=== PATIENT | male | born 1940 | race Caucasian/White ===

== ENCOUNTER 2019-02-06 11:16 | Outpatient (CLI) | payer MEDICARE, SELFPAY ==
[2019-02-06 13:13] LABS: Anion Gap 13.3 mmol/L (3-11); BUN 21 mg/dL (7-18); CO2 23.7 mmol/L (21.0-32.0); Calcium 8.7 mg/dL (8.5-10.1); Chloride 104 mmol/L (98-107); Estimated GFR 53.67 (mL/min/1.73m2); Glucose 103 mg/dL (70-100); Potassium 4.2 mmol/L (3.5-5.1); Sodium 141 mmol/L (136-145)
== END 2019-02-06 11:36 ==
PROVIDERS: PCP Family Medicine; Visit Provider Family Medicine
DX: N28.9 Disorder of kidney and ureter, unspecified (principal)
CPT/HCPCS: 36415; 80048

== ENCOUNTER 2019-10-13 14:49 | Emergency (ER) | payer MEDICARE, SELFPAY ==
[2019-10-13] VITALS (51 sets, daily range): BP systolic 114–177; BP diastolic 62–98; PULSE 62–88; RESP 12–34; TEMP 36.5–36.8; O2SAT 93–98
--- NOTE | 2019-10-13 15:15 | DI.CT_ITS ---
EXAM: CT THORAX CTA CLINICAL HISTORY: chest pain radiating to back TECHNIQUE: Imaging Protocol: Axial computed tomography images with coronal and sagittal reformatted images were created and reviewed CONTRAST MATERIAL: Intravenous: Omnipaque 350 Contrast volume:100 cc COMPARISON: No exams were available for comparison FINDINGS: Thyroid: Unremarkable as visualized. Tracheobronchial tree: Patent where visualized. Mediastinum and [place]: No dominant adenopathy or fluid collection. Pulmonary parenchyma: No consolidation or dominant measurable mass. No architectural distortion. Ther e are a couple of small pulmonary nodules bilaterally, none greater than 4 millimeters in diameter. Pleura: No effusion or pneumothorax. Heart: The heart is not dilated. No coronary artery calcifications are seen. Aorta: Thoracic aorta non-dilated. Pulmonary arteries: No evidence pulmonary embolic disease. Upper abdomen: Unremarkable. Lymph nodes: Within normal limits. Bones: Normal. Tubes, Catheters, and Lines: None. IMPRESSION: Normal CT of the thorax.No evidence of pulmonary embolic disease. RADIATION DOSE DELIVERED: 480.01mGy.cm Total DLP DATA REPOSITORY: All CT scans at this facility are submitted to the National Radiology Data Registry (NRDR) Dose Index Registry (DIR) with the [employer] ([employer]). RADIATION OPTIMIZATION: All CT scans at this facility use at least one of these dose optimization te chniques: automated exposure control; mA and/or kV adjustment per patient size (includes targeted exa ms where dose is matched to clinical indication); or iterative reconstruction.
--- NOTE | 2019-10-13 15:21 | ED.GENADUL_ITS ---
Discharge Plan Disposition Patient Disposition: [facility] Condition: Critical Discharge Details Chief Complaint: Chest Pain Clinical Impression: Non-ST elevation MN (NSTEMI) Primary Care Provider: Ceasar Pratt ED Provider: Rajesh Chambers Home Meds and New Rx's Prescriptions: No Action lorazepam 0.5 mg tablet 0.5 mg PO QHS PRN (Reason: sleep) Qty: 30 RF: 0 desmopressin 0.1 mg tablet 0.2 mg PO QAM Qty: 180 RF: 4 Medical Decision Making 1526 --79-year-old male with history of hyperlipidemia, diabetes insipidus, here with crushing substernal chest pressure intermittent since last night. Patient does not currently have pain. Pain did radiate to his back and bilateral shoulders. Concern for ACS versus aortic dissection versus other. Screening ECG was reviewed and interpreted by me: Sinus rhythm 69 bpm, normal axis, subtle DC depression is noted inferior leads lead III and aVF. Plan to obtain CTA of the chest. --Troponin significantly elevated. CTA pending. Patient reassessed and notes that he had recurrent chest pain that was brief radiating to his neck and now resolved again. --CT of the chest was reviewed by me and no obvious dissection. Plan to start heparin bolus and infusion. Will give Plavix 600 mg and aspirin 325 mg. 17:10 --called [facility] transfer center to request transfer and unfortunately they are at capacity unable to accept patient tonight. I called [facility] transfer center to request transfer, ECG was sent for review, awaiting callback from [employer] consultant. --Repeat ECG was reviewed and interpreted by me: Sinus rhythm 70 bpm, low voltage noted in limb leads, no significant change from prior ECG. --CT chest was interpreted by radiology: IMPRESSION: No acute finding 17:23 --I spoke with Dr. Cheng at [facility] who will accept the patient in transfer. He recommends starting nitroglycerin infusion and beta-gail. Awaiting bed placement. HPI General Mode of arrival: ambulatory . Date/Time Provider Initiated Documentation: 10/13/19 15:06 . Limitations to Documentation: no limitations . Information obtained by: patient . 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 Patient notes crushing pressure in his chest that started last night while at rest. Pain was worse lying down. Pain improved after hours but returned this morning. Pain localized to substernal and did have some radiation to his back and bilateral shoulders. He had no associated shortness of breath. He does have some chronic mild unchanged leg swelling. No associated calf pain. No abdominal pain. Related Data Home Medications Medication Instructions Recorded Confirmed desmopressin 0.1 mg tablet 0.2 mg PO QAM #180 tab 03/10/19 10/13/19 lorazepam 0.5 mg tablet 0.5 mg PO QHS PRN #30 tab 09/05/19 10/13/19 Previous Rx's Medication Instructions Recorded desmopressin 0.1 mg tablet 0.2 mg PO QAM #180 tab 03/10/19 lorazepam 0.5 mg tablet 0.5 mg PO QHS PRN #30 tab 09/05/19 Allergies Allergy/AdvReac Type Severity Reaction Status Date / Time bee venom protein (honey bee) AdvReac Severe swell up Unverified 10/13/19 15:01 like a baloon General Stated Complaint: Chest Pain TERRIE: 2 Review of Systems All systems reviewed & are unremarkable except as noted in HPI and below Constitutional Constitutional: Denies fever(s) Cardiovascular Cardiovascular: Reports as per HPI Gastrointestinal Gastrointestinal: Denies abdominal pain PFSH Social History Smoking/Tobacco Use Status: Former Tobacco Use Alcohol Intake: current Alcohol Intake frequency: a few times a week Drug use: Occasionally Substance use type: marijuana Do you feel safe at home: Yes Do you feel safe in your relationship?: Yes Exam Const General: cooperative and no acute distress [facility] Mouth: moist mucous membranes Eyes Conjunctivae: normal conjunctivae Sclera: normal sclerae Neck Neck: trachea midline and supple Resp Auscultation: clear to auscultation bilaterally, no rales, no rhonchi and no wheezes Cardio Jugular venous pressure: no JVD Rate: regular rate and not tachycardic Rhythm: regular rhythm Heart Sounds: murmur systolic II/ GI Palpation: soft, not firm, no guarding, no masses, not rigid and nontender Skin General skin exam: no rashes or lesions noted Neuro General: patient alert, patient awake, patient oriented x3 and tone normal Extrem General: no calf tenderness bilaterally and no edema Psych Appearance: grossly normal Mental Status: mental status grossly normal Course Vital Signs Vital signs: Vital Signs Temperature 36.5 C 10/13/19 14:52 Pulse 66 10/13/19 14:52 Respiratory Rate 19 10/13/19 14:52 Blood Pressure 146/68 H 10/13/19 14:52 Pulse Oximetry 98 10/13/19 14:52 Temperature 36.5 C 10/13/19 14:52 Temperature Source Skin 10/13/19 14:52 Pulse 66 10/13/19 14:52 Respiratory Rate 15 10/13/19 15:04 Respiratory Effort 10/13/19 15:04 Respiratory Depth Normal 10/13/19 15:04 Respiratory Pattern Normal 10/13/19 15:04 Blood Pressure 146/68 H 10/13/19 14:52 Pulse Oximetry 98 10/13/19 14:52 Oxygen Delivery Method Room Air 10/13/19 14:52 Oxygen Flow Rate 0 10/13/19 14:52 Pain Level 2 10/13/19 14:52 Critical Care Time Critical Care Time Critical Care Time: Yes Total Critical Care Time: 40 Attestation: I spent greater than 40 number of minutes addressing this patient's immediate life threats. Please see MDM section of note. This time was spent engaged in work directly related to the patient's care, exclusive of separate procedures, and failure to initiate these interventions would have likely resulted in clinically significant or life threatening deterioration in the patient's condition.
[2019-10-13 15:33] LABS: Abs Immature Grans 0.01 k/cumm (0.0-0.09); Absolute Basophil Count 0.02 k/cumm (0.0-0.2); Absolute Eosinophil Count 0.14 k/cumm (0.0-0.7); Absolute Lymphocyte Count 3.17 k/cumm (1.2-3.4); Absolute Monocyte Count 0.69 k/cumm (0.11-0.7); Absolute Neutrophil Count 2.88 k/cumm (1.2-6.7); Basophils % 0.3; HGB 15.3 g/dL (13.5-17.5); Immature Grans % 0.1 %; Lymphocytes % 45.9; Mean Corpuscular Hemoglobin 30.7 pg (27.0-33.0); Mean Corpuscular Volume 90.4 fL (80-95); Mean Platelet Volume 8.7 fL (8.0-11.0); Neutrophils % 41.7; Platelet Count 193 x1000/uL (130-400); RBC 4.98 m/cumm (4.50-6.00); RBC Distribution Width 13.2 % (11.8-14.1); White Blood Cell Count 6.91 k/cumm (4.4-10.8)
[2019-10-13 16:30] LABS: ALT 32 U/L (16-63); AST 56 U/L (15-37); Albumin 3.7 g/dL (3.4-5.0); Alkaline Phosphatase 74 U/L (46-116); Anion Gap 8.5 mmol/L (3-11); BUN 24 mg/dL (7-18); Bilirubin, Total 0.3 mg/dL (0.2-1.0); CO2 24.5 mmol/L (21.0-32.0); CREATININE 1.25 mg/dL (0.70-1.30); Calcium 8.7 mg/dL (8.5-10.1); Chloride 106 mmol/L (98-107); Estimated GFR 56.01 (mL/min/1.73m2); Glucose 117 mg/dL (74-106); Potassium 3.9 mmol/L (3.5-5.1); Sodium 139 mmol/L (136-145); Total Protein 7.3 g/dL (6.4-8.2)
[2019-10-13] MEDS: Omnipaque 350 MG/ML 100 ML BTL IJ (16:58)
[2019-10-13] MEDS: Normal Saline - Diluent 50 ML VIAL IV (16:59)
[2019-10-13] MEDS: Aspirin 81 MG CHEW 324 MG CH (17:09)
[2019-10-13] MEDS: Clopidogrel 300 MG TAB 600 MG PO (17:10)
--- NOTE | 2019-10-13 17:25 | DI.VRAD_ITS ---
PROCEDURE INFORMATION: Exam: CT Angiography Chest With Contrast Exam date and time: 10/13/2019 4:52 PM Age: 79 years old Clinical indication: Patient HX: Chest pain radiating to back TECHNIQUE: Imaging protocol: Computed tomographic angiography of the chest with intravenous contrast. 3D rendering: MIP and/or 3D reconstructed images were created by the technologist. COMPARISON: No relevant prior studies available. FINDINGS: Pulmonary arteries: Normal. No pulmonary emboli. Aorta: Unremarkable. No aortic aneurysm. No aortic dissection. Lungs: Unremarkable. No consolidation. No masses. Pleural space: Unremarkable. No pneumothorax. No pleural effusion. Heart: Unremarkable. No cardiomegaly. No pericardial effusion. Lymph nodes: Unremarkable. No enlarged lymph nodes. Bones/joints: Unremarkable. No acute fracture. Soft tissues: Unremarkable. IMPRESSION: No acute findings. Dictated and Authenticated by: Christine Ku MD. Ordering:NICO Mena MD
[2019-10-13] MEDS: Labetalol 100 MG/20 ML VIAL 10 MG IVP (17:45)
[2019-10-13] MEDS: Normal Saline 250 ML 500 ML IV (17:50)
[2019-10-13] MEDS: Normal Saline Flush 10 ML SYR IVP (18:10)
[2019-10-13] MEDS: LORazepam 2 MG/ML VIAL 0.5 MG IVP (18:17)
[2019-10-13] MEDS: Lidocaine 2% Jelly 6 ML SYR (18:25)
[2019-10-13 19:04] LABS: Troponin I 4.55 ng/mL (<0.06)
[2019-10-16 13:46] LABS: Troponin I 4.98 ng/mL (<0.06)
== END 2019-10-13 18:55 ==
PROVIDERS: Emergency Provider Student in an Organized Health Care Education/Training Program; PCP Family Medicine
DX: I21.4 Non-ST elevation (NSTEMI) myocardial infarction (principal)
CPT/HCPCS: 36415; 71275; 80053; 93005; 96361; 96365; 96366; 96368; 96375; 96376; 99291; 84484; 85025; 93010; J2060; J3490

== ENCOUNTER 2019-10-16 05:08 | Emergency (ER) | payer MEDICARE, SELFPAY ==
[2019-10-16] VITALS (18 sets, daily range): BP systolic 101–128; BP diastolic 48–75; PULSE 56–78; RESP 12–31; TEMP 37.1; O2SAT 93–98
--- NOTE | 2019-10-16 05:15 | DI.RAD_ITS ---
EXAM: XR PORTABLE CHEST AP CLINICAL HISTORY: chest pain. TECHNIQUE: 2D digital imaging was performed. COMPARISON: CR CHEST 2 VIEWS PA,LAT from 01/07/2011 FINDINGS: LUNGS: Clear. No pleural abnormality seen. HEART: Normal. MEDIASTINUM: Normal. OTHER FINDINGS: None. IMPRESSION: No acute pulmonary findings. DATA REPOSITORY: RADIATION DOSE DELIVERED:
--- NOTE | 2019-10-16 05:22 | ED.GENADUL_ITS ---
Discharge Plan Disposition Patient Disposition: HOME Condition: Stable Discharge Details Chief Complaint: Chest Pain Clinical Impression: Chest pain Primary Care Provider: Ceasar Pratt ED Provider: Nish Villa Home Meds and New Rx's Prescriptions: Continued lorazepam 0.5 mg tablet 0.5 mg PO QHS PRN (Reason: sleep) Qty: 30 RF: 0 nitroglycerin [Nitrostat] 0.3 mg Tablet, Sublingual 0.3 mg SUBLINGUAL Q5M PRNRF: 0 clopidogrel [Plavix] 75 mg Tablet 75 mg PO DAILY RF: 0 aspirin 81 mg Tablet,Chewable 81 mg PO DAILY RF: 0 rosuvastatin 20 mg Tablet 20 mg PO DAILY RF: 0 metoprolol tartrate 25 mg Tablet 12.5 mg PO BID RF: 0 desmopressin 0.1 mg tablet 0.2 mg PO BID RF: 0 Discharge Instructions Instructions: Chest Pain (ED) Additional Instructions: call cardiology later today and follow up with them at their direction return to the emergency department if you are having worsening pain, feel more ill or have difficulty breathing Medical Decision Making 79 yo male with hx of hld, who had an nstemi and had 3 stents placed at [facility] this past week and was d/c'd to home yesterday comes in after he developed left upper chest pain and felt chill like sensation. He called 911 who advised he take his nitro and he took two which resolved the pain and on arrival with ems is asymptomatic, no chest pain, dyspnea or pressure. He denies fevers, weakness, headache. He has clear lungs, no jvd no peripheral edema or calf tenderness. Could be angina vs pericarditis, had negative cta last week when here so doubt dissection and no hypoxia or tachycardia so doubt PE. Will obtain xray to eval for possible pna given the chills though unlikely infection given afebrile and no chills or other symptoms now. Will obtain labs including troponin and monitor. pt remains pain free and hd stable. Labs show troponin of over 10 which I'm unsure if this is downtrending from [facility] as we can't access their records. Will discuss with cardiology at [facility] Spoke with Dr. Roblero at [facility] cardiology and apparently his troponin when he left there was 15 so not concerned about 10 and can f/u with them no need for admission or transfer given asymptoamtic. Patient continues to be well here withot pain. I recommended a delta troponin but patient declined and wants to go home and has capacity to make his own decisions and understands risks. He is going to call cardiology today and return precautions given Differential Diagnosis Differential Diagnosis: pericarditis, acs, pna Medical Records Medical records reviewed: Yes I reviewed the patient's medical records. Imaging Data Radiologic Study: Attestation: I personally reviewed and interpreted this imaging study as follows: Imaging: X-Ray Radiologist's impression: no acute findings Lab Data Lab results reviewed: Yes I reviewed the patient's lab results. ECG Data Attestation: I personally reviewed and interpreted this ECG (s) as follows: Prior ECG tracings: available for review Interpretation: sinus rhythm, rate of 63, pr 196, qtc [address] t wave i schemic findings HPI General Mode of arrival: EMS . Date/Time Provider Initiated Documentation: 10/16/19 05:08 . Limitations to Documentation: no limitations . Information obtained by: patient . History of Present Illness 79 year old M presents to the emergency department with the chief complaint of chest pain, described as moderate, and it has been now resolved. No relieving factors improve symptom(s), No exacerbating factors reported . Related Data Home Medications Medication Instructions Recorded Confirmed lorazepam 0.5 mg tablet 0.5 mg PO QHS PRN #30 tab 09/05/19 10/16/19 aspirin 81 mg PO DAILY 10/16/19 10/16/19 clopidogrel [Plavix] 75 mg PO DAILY 10/16/19 10/16/19 desmopressin 0.2 mg PO BID 10/16/19 10/16/19 metoprolol tartrate 12.5 mg PO BID 10/16/19 10/16/19 nitroglycerin [Nitrostat] 0.3 mg SUBLINGUAL Q5M PRN 10/16/19 10/16/19 rosuvastatin 20 mg PO DAILY 10/16/19 10/16/19 Previous Rx's Medication Instructions Recorded lorazepam 0.5 mg tablet 0.5 mg PO QHS PRN #30 tab 09/05/19 Allergies Allergy/AdvReac Type Severity Reaction Status Date / Time bee venom protein (honey bee) AdvReac Severe swell up Unverified 10/13/19 15:01 like a baloon General Stated Complaint: Chest Pain TERRIE: 2 Review of Systems All systems reviewed & are unremarkable except as noted in HPI and below Constitutional Constitutional: Denies fever(s) and Denies weakness Cardiovascular Cardiovascular: Denies dyspnea Respiratory Respiratory: Denies cough and Denies dyspnea Gastrointestinal Gastrointestinal: Denies abdominal pain, Denies nausea and Denies vomiting Musculoskeletal Musculoskeletal: Denies joint swelling Neurologic Neurologic: Denies weakness Psychiatric Psychiatric: Denies depression PFSH Social History Smoking/Tobacco Use Status: Former Tobacco Use Alcohol Intake: current Alcohol Intake frequency: 0-2 drinks per day Alcohol type: beer and hard liquor Drug use: Occasionally Substance use type: marijuana Do you feel safe at home: Yes Do you feel safe in your relationship?: Yes Exam Const General: no acute distress Orientation: alert HENMT Head: normal to inspection Ears: external ears normal General nose exam: external nose normal Mouth: moist mucous membranes Eyes General: appearance normal, both eyes and all related structures Neck Neck: normal visual inspection Resp Effort & Inspection: normal respiratory effort and able to speak in complete sentences Cardio Rate: regular rate Skin General skin exam: no rashes or lesions noted Neuro General: patient alert and patient oriented x3 Extrem General: normal to inspection Psych Mental Status: mental status grossly normal Course Vital Signs Vital signs: Vital Signs Temperature 37.1 C 10/16/19 05:09 Pulse 61 10/16/19 05:09 Respiratory Rate 20 10/16/19 05:09 Blood Pressure 116/51 L 10/16/19 05:09 Pulse Oximetry 96 10/16/19 05:09 Temperature 37.1 C 10/16/19 05:09 Temperature Source Oral 10/16/19 05:09 Pulse 61 10/16/19 05:09 Respiratory Rate 20 10/16/19 05:13 Respiratory Effort 10/16/19 05:13 Respiratory Depth Normal 10/16/19 05:13 Respiratory Pattern Normal 10/16/19 05:13 Blood Pressure 116/51 L 10/16/19 05:09 Blood Pressure Position Sitting 10/16/19 05:09 Pulse Oximetry 96 10/16/19 05:09 Pain Level 0 10/16/19 05:09 Lab/Test Results Lab/Test Results: 10/16/19 05:09 Blood Blood Culture - Pending 10/16/19 05:09 Blood Blood Culture - Pending
[2019-10-16 05:27] LABS: Absolute Basophil Count 0.01 k/cumm (0.0-0.2); Absolute Eosinophil Count 0.05 k/cumm (0.0-0.7); Absolute Lymphocyte Count 0.55 k/cumm (1.2-3.4); Absolute Monocyte Count 0.02 k/cumm (0.11-0.7); Basophils % 0.3; Eosinophils % 1.4; HCT 47.6 % (40.0-50.0); HGB 16.3 g/dL (13.5-17.5); Lymphocytes % 15.6; Mean Corp. HGB Concentration 34.2 g/dL (32.0-36.0); Mean Corpuscular Hemoglobin 30.9 pg (27.0-33.0); Mean Corpuscular Volume 90.2 fL (80-95); Monocytes % 0.6; Neutrophils % 82.1; Platelet Count 186 x1000/uL (130-400); RBC 5.28 m/cumm (4.50-6.00); RBC Distribution Width 12.9 % (11.8-14.1); White Blood Cell Count 3.53 k/cumm (4.4-10.8)
[2019-10-16 05:30] LABS: BE (Venous) 0.6 mmol/L (-3-3); HCO3 (Venous) 26 mmol/L (22-28); O2 Sat (Venous) 61 % (70-80); TCO2 (Venous) 23 mmol/L (22-29); pCO2 (Venous) 48 mm/Hg (34-47); pH (Venous) 7.35 (7.35-7.45); pO2 (Venous) 33 mm/Hg (28-44)
--- NOTE | 2019-10-16 05:36 | NUR.NOTE ---
To room 6 via [facility] from home with c/o CP. Pt woke up to go to the [facility], had mild, sharp left upper chest pain. Non-radiating. Pt reports shaking chills and feeling SOB, I think it was panic. Pt took nitro x2 at home, pain resolved. SR on monitor. Pt DC from [facility] yesterday s/p 3 stents placed. Right radial dressing intact, +CSM. Pt denies pain at site. Arrives with #18 LFA. Labs drawn by EMS. Pt aware of need for UA. Self-caths. States he cath'd prior to coming to ED, unable to provide sample at this time.
[2019-10-16 05:48] LABS: PTT Activated 22.8 sec (21.0-31.4); Prothrombin Time 9.6 sec (9.3-11.0)
--- NOTE | 2019-10-16 05:54 | DI.VRAD_ITS ---
PROCEDURE INFORMATION: Exam: XR Chest, 1 View Exam date and time: 10/16/2019 5:49 AM Age: 79 years old Clinical indication: Chest pain; Type not specified TECHNIQUE: Imaging protocol: XR of the chest Views: 1 view. COMPARISON: CT THORAX CTA 10/13/2019 4:43 PM FINDINGS: Lungs: Unremarkable. No consolidation. Pleural space: Unremarkable. No pleural effusion. No pneumothorax. Heart/Mediastinum: Unremarkable. No cardiomegaly. Bones/joints: Unremarkable. IMPRESSION: No acute findings. Dictated and Authenticated by: Earl Rodriguez MD. Ordering:GENI Mock MD
[2019-10-16 05:56] LABS: ALT 36 U/L (16-63); AST 64 U/L (15-37); Albumin 3.8 g/dL (3.4-5.0); Alkaline Phosphatase 69 U/L (46-116); Anion Gap 10.4 mmol/L (3-11); BUN 23 mg/dL (7-18); Bilirubin, Total 0.8 mg/dL (0.2-1.0); CO2 26.6 mmol/L (21.0-32.0); CREATININE 1.43 mg/dL (0.70-1.30); Calcium 9.3 mg/dL (8.5-10.1); Chloride 102 mmol/L (98-107); Estimated GFR 47.95 (mL/min/1.73m2); Glucose 102 mg/dL (74-106); Magnesium 1.7 mg/dL (1.8-2.4); NT-proBNP 2224 pg/mL (<300); Potassium 4.1 mmol/L (3.5-5.1); Sodium 139 mmol/L (136-145); Total Protein 7.8 g/dL (6.4-8.2)
[2019-10-16] MEDS: Normal Saline Flush 10 ML SYR IVP (05:59)
[2019-10-16] MEDS: Normal Saline 1,000 ML 1000 ML IV (05:59)
[2019-10-16 06:15] LABS: Troponin I 10.07 ng/mL (<0.06)
[2019-10-16 06:36] LABS: Procalcitonin 0.1 ng/mL
--- NOTE | 2019-10-18 09:38 | NUR.NOTE ---
Nursing Note: Received blood culture results on patient. He is admitted to /[facility] and they are faxed to them with Dr. Shelby esteves. Tammy Tipton.
== END 2019-10-16 06:50 | disposition home or self-care (01) ==
LOC: ER 06:54
PROVIDERS: Emergency Provider Emergency Medicine; PCP Family Medicine
DX: R07.9 Chest pain, unspecified (principal); R68.83 Chills (without fever); Z95.5 Presence of coronary angioplasty implant and graft
CPT/HCPCS: 80053; 82805; 84145; 87040; 87077; 93005; 96360; 99284; 71045; 83605; 83735; 83880; 84484; 85025; 85610; 85730; 87186; 93010

== ENCOUNTER 2019-10-16 19:40 | Inpatient (IN) | payer MEDICARE, SELFPAY ==
[2019-10-16] VITALS (27 sets, daily range): BP systolic 93–130; BP diastolic 44–88; PULSE 56–74; RESP 14–26; TEMP 36.5–36.8; O2SAT 93–97
--- NOTE | 2019-10-16 20:06 | W.ED.GENAD ---
Discharge Plan Disposition Patient Disposition: [facility] INPATIENT Condition: Stable Discharge Details Chief Complaint: GenMedical Clinical Impression: Bacteremia Primary Care Provider: Ceasar Pratt ED Provider: Nish Villa Home Meds and New Rx's Prescriptions: No Action lorazepam 0.5 mg tablet 0.5 mg PO QHS PRN (Reason: sleep) Qty: 30 RF: 0 nitroglycerin [Nitrostat] 0.3 mg Tablet, Sublingual 0.3 mg SUBLINGUAL Q5M PRNRF: 0 clopidogrel [Plavix] 75 mg Tablet 75 mg PO DAILY RF: 0 aspirin 81 mg Tablet,Chewable 81 mg PO DAILY RF: 0 rosuvastatin 20 mg Tablet 20 mg PO DAILY RF: 0 metoprolol tartrate 25 mg Tablet 12.5 mg PO BID RF: 0 desmopressin 0.1 mg tablet 0.2 mg PO BID RF: 0 Medical Decision Making 79 yo male who had 3 stents placed at [facility] last week, hx of hld, comes in after he was seen earlier today for chest pain and momentary chills and had cultures done returns as all 4 bottles grew gram negative bacteria. He states he feels a little tired otherwise no symptoms. Denies cough, travel, rashes, chest pain/pressure, dyspnea, headache. He does self cath normally and states the water he used at [facility] when he was there did not feel hot enough. He has no pain or erythema at access site on right radius and no fluctuance appears to be healing well. Suspect urosepsis, will repeat cultures and obtain urinalysis and culture and monitor ua consistent with likely source of infection. Spoke with Dr. Batres who will admit Differential Diagnosis Differential Diagnosis: uti, sepsis, pna Medical Records Medical records reviewed: Yes I reviewed the patient's medical records. Lab Data Lab results reviewed: Yes I reviewed the patient's lab results. HPI General Mode of arrival: ambulatory. Date/Time Provider Initiated Documentation: 10/16/19 19:42. Limitations to Documentation: no limitations. Information obtained by: patient. History of Present Illness 79 year old M presents to the emergency department with the chief complaint of positive blood culture, described as moderate, Patient reports no radiation. No relieving factors improve symptom(s), No exacerbating factors reported . Patient did receive the following treatments prior to arrival, none Related Data Home Medications Medication Instructions Recorded Confirmed lorazepam 0.5 mg tablet 0.5 mg PO QHS PRN #30 tab 09/05/19 10/16/19 aspirin 81 mg PO DAILY 10/16/19 10/16/19 clopidogrel [Plavix] 75 mg PO DAILY 10/16/19 10/16/19 desmopressin 0.2 mg PO BID 10/16/19 10/16/19 metoprolol tartrate 12.5 mg PO BID 10/16/19 10/16/19 nitroglycerin [Nitrostat] 0.3 mg SUBLINGUAL Q5M PRN 10/16/19 10/16/19 rosuvastatin 20 mg PO DAILY 10/16/19 10/16/19 Previous Rx's Medication Instructions Recorded lorazepam 0.5 mg tablet 0.5 mg PO QHS PRN #30 tab 09/05/19 Allergies Allergy/AdvReac Type Severity Reaction Status Date / Time bee venom protein (honey bee) AdvReac Severe swell up Unverified 10/16/19 19:47 like a baloon General Stated Complaint: GenMedical TERRIE: 4 Review of Systems All systems reviewed & are unremarkable except as noted in HPI and below Constitutional Constitutional: Denies fever(s) and Denies weakness Cardiovascular Cardiovascular: Denies chest pain and Denies dyspnea Respiratory Respiratory: Denies cough and Denies dyspnea Gastrointestinal Gastrointestinal: Denies abdominal pain, Denies nausea and Denies vomiting Musculoskeletal Musculoskeletal: Denies joint swelling Neurologic Neurologic: Denies weakness [facility] Medical History (Updated 10/16/19 @ 20:48 by Nish Villa MD) Diabetes insipidus (Acute) Heart murmur (Acute) Hypercholesterolemia (Acute 08/08/08) Myocardial infarction (Chronic) Surgical History Colonoscopy - IV Sedation (09/14/12) [facility] [place]; POLYP;DIVERTICULOSIS Social History Smoking/Tobacco Use Status: Former Tobacco Use Alcohol Intake: current Alcohol Intake frequency: a few times a week Alcohol type: beer and hard liquor Drug use: Occasionally Substance use type: marijuana Do you feel safe at home: Yes Do you feel safe in your relationship?: Yes Exam Const General: no acute distress Orientation: alert HENMT Head: normal to inspection Ears: external ears normal General nose exam: external nose normal Mouth: moist mucous membranes Eyes General: appearance normal, both eyes and all related structures Neck Neck: normal visual inspection Resp Effort & Inspection: normal respiratory effort and able to speak in complete sentences Cardio Rate: regular rate Skin General skin exam: no rashes or lesions noted Neuro General: patient alert and patient oriented x3 Extrem General: normal to inspection Psych Mental Status: mental status grossly normal Course Vital Signs Vital signs: Vital Signs Temperature 36.5 C 10/16/19 19:44 Pulse 72 10/16/19 19:44 Respiratory Rate 16 10/16/19 19:44 Blood Pressure 107/58 L 10/16/19 19:44 Pulse Oximetry 97 10/16/19 19:44 Temperature 36.5 C 10/16/19 19:44 Temperature Source Skin 10/16/19 19:44 Pulse 72 10/16/19 19:44 Respiratory Rate 16 10/16/19 19:44 Respiratory Effort Non-Labored 10/16/19 19:50 Blood Pressure 107/58 L 10/16/19 19:44 Pulse Oximetry 97 10/16/19 19:44 Pain Level 0 10/16/19 19:44 Lab/Test Results Lab/Test Results: 10/16/19 20:01 Blood Blood Culture - Pending 10/16/19 20:01 Blood Blood Culture - Pending
[2019-10-16 20:11] LABS: Lactate 1.8 mmol/L (0.6-1.4)
[2019-10-16 20:14] LABS: Abs Immature Grans 0.06 k/cumm (0.0-0.09); Absolute Basophil Count 0.02 k/cumm (0.0-0.2); Absolute Eosinophil Count 0.11 k/cumm (0.0-0.7); Absolute Lymphocyte Count 0.98 k/cumm (1.2-3.4); Absolute Monocyte Count 0.45 k/cumm (0.11-0.7); Absolute Neutrophil Count 10.57 k/cumm (1.2-6.7); Basophils % 0.2; Eosinophils % 0.9; HCT 40.8 % (40.0-50.0); Immature Grans % 0.5 %; Mean Corp. HGB Concentration 34.3 g/dL (32.0-36.0); Mean Corpuscular Hemoglobin 31.3 pg (27.0-33.0); Mean Corpuscular Volume 91.1 fL (80-95); Monocytes % 3.7; Neutrophils % 86.7; Platelet Count 162 x1000/uL (130-400); RBC 4.48 m/cumm (4.50-6.00); RBC Distribution Width 13.1 % (11.8-14.1); White Blood Cell Count 12.19 k/cumm (4.4-10.8)
[2019-10-16 20:23] LABS: pCO2 (Venous) 42 mm/Hg (34-47); pH (Venous) 7.38 (7.35-7.45); pO2 (Venous) 43 mm/Hg (28-44)
[2019-10-16 20:24] LABS: HCO3 (Venous) 25 mmol/L (22-28); TCO2 (Venous) 22 mmol/L (22-29)
[2019-10-16 20:26] LABS: O2 Sat (Venous) 77 % (70-80)
[2019-10-16 20:31] LABS: Bilirubin Small (Negative); Blood Trace-lysed (Negative); Clarity Clear (Clear); Glucose Negative (Negative); Ketones Negative (Negative); Leukocyte Esterase Moderate (Negative); Nitrite Negative (Negative); Urobilinogen 0.2 EU/dL (Up TO 0.2); pH 5.5 (5-8)
[2019-10-16] MEDS: PIPERACILLIN/TAZO 4.5 GM in Normal Saline 100 ML IVPB (20:34)
[2019-10-16 20:44] LABS: C & S Indicated? C&S Done As Ordered; WBC >50 HPF (0-5)
[2019-10-16 20:49] LABS: ALT 35 U/L (16-63); AST 52 U/L (15-37); Albumin 3.3 g/dL (3.4-5.0); Alkaline Phosphatase 65 U/L (46-116); Anion Gap 7.5 mmol/L (3-11); BUN 32 mg/dL (7-18); Bilirubin, Direct 0.15 mg/dL (0.00-0.20); Bilirubin, Total 0.6 mg/dL (0.2-1.0); CO2 26.5 mmol/L (21.0-32.0); CREATININE 1.84 mg/dL (0.70-1.30); Calcium 8.7 mg/dL (8.5-10.1); Chloride 102 mmol/L (98-107); Estimated GFR 35.85 (mL/min/1.73m2); Glucose 128 mg/dL (74-106); Magnesium 1.7 mg/dL (1.8-2.4); Potassium 3.7 mmol/L (3.5-5.1); Sodium 136 mmol/L (136-145); Total Protein 6.7 g/dL (6.4-8.2)
--- NOTE | 2019-10-16 21:10 | W.PM.HP.N ---
Date of service: 10/16/19 Time of Service: 21:10 Assessment and Plan Assessment and plan (1) Bacteremia: Status: Acute Assessment and plan: Gram negative bacteremia, urinary source. At present clinically not septic but will watch closely. Probably a little dry. Will continue Zosyn pending cx results and push IVF. As to troponin, no doubt tail end of prior NSTEMI, but will trend out to confirm. Reviewed ADs, requests Full Code. History of Present Illness History of Present Illness Chief Complaint: shaking chills Narrative: 79 male with neurogenic bladder, self cath. In [facility] 2 days [employer] CLAIMS EX[employer]ER with NSTEMI, s/p stent x 2. Seen here early this AM with fleeting episode atypical CP, lasting less than one minute, and not similar to ACS; but then had shaking chills. Blood cxx drawn then d/c'ed to home. Called back for cxx + GNR. Reports only that he feels somewhat wan and fatigued. Received dose Zosyn and admitted. Note troponin of 10, but per [facility] this was 15 on D/C. Cardiology did not feel anything needed to be done in this regard. Review of Systems All systems reviewed & are unremarkable except as noted in HPI and below PFSH Medical History Diabetes insipidus (Acute) Heart murmur (Acute) Hypercholesterolemia (Acute 08/08/08) Myocardial infarction (Chronic) Surgical History Colonoscopy - IV Sedation (09/14/12) [facility] [place]; POLYP;DIVERTICULOSIS Social History Smoking/Tobacco Use Status: Former Tobacco Use Alcohol Intake: current Alcohol Intake frequency: a few times a week Alcohol type: beer and hard liquor Drug use: Occasionally Substance use type: marijuana Do you feel safe at home: Yes Do you feel safe in your relationship?: Yes Meds Home Medications and Allergies Home Medications Medication Instructions Recorded Confirmed Type lorazepam 0.5 mg tablet 0.5 mg PO QHS PRN #30 tab 09/05/19 10/16/19 Rx aspirin 81 mg PO DAILY 10/16/19 10/16/19 History clopidogrel [Plavix] 75 mg PO DAILY 10/16/19 10/16/19 History desmopressin 0.2 mg PO BID 10/16/19 10/16/19 History metoprolol tartrate 12.5 mg PO BID 10/16/19 10/16/19 History nitroglycerin [Nitrostat] 0.3 mg SUBLINGUAL Q5M PRN 10/16/19 10/16/19 History rosuvastatin 20 mg PO DAILY 10/16/19 10/16/19 History Allergies Allergy/AdvReac Type Severity Reaction Status Date / Time bee venom protein (honey bee) AdvReac Severe swell up Unverified 10/16/19 19:47 like a baloon Exam Narrative Exam Narrative: 101/60, 66, 21, 36.5, 96% RA. HEENT unremarkable; neck supple; lungs clear; heart RRR w/o MRG; - CVAT; abdomen soft and NT; extremities trace pedal edema, pulse 2+/=; neuro ox3, non-focal Results Labs Result diagrams: 10/16/19 19:48 10/16/19 19:48 Labs: Laboratory Results - last 24 hr 10/16/19 10/16/19 10/16/19 19:48 19:48 19:48 WBC 12.19 H D RBC 4.48 L Hgb 14.0 D Hct 40.8 MCV 91.1 MCH 31.3 MCHC 34.3 RDW 13.1 Plt Count 162 MPV 9.0 Immature Gran % 0.5 Neutrophils % 86.7 Lymphocytes % 8.0 Monocytes % 3.7 Eosinophils % 0.9 Basophils % 0.2 Absolute Neutrophils 10.57 H Absolute Lymphocytes 0.98 L Absolute Monocytes 0.45 Absolute Eosinophils 0.11 Absolute Basophils 0.02 VBG pH VBG pCO2 VBG pO2 VBG HCO3 VBG Total CO2 VBG O2 Saturation VBG Base Excess Sodium 136 Potassium 3.7 Chloride 102 Carbon Dioxide 26.5 Anion Gap 7.5 BUN 32 H D Creatinine 1.84 H Estimated GFR/1.73 m2 35.85 Glucose 128 H Lactate 1.8 H Calcium 8.7 Magnesium 1.7 L Total Bilirubin 0.6 Conjugated Bilirubin 0.15 AST 52 H ALT 35 Alkaline Phosphatase 65 Total Protein 6.7 Albumin 3.3 L Urine Color Urine Clarity Urine pH Ur Specific [place] Urine Protein Urine Ketones Urine Blood Urine Nitrite Urine Bilirubin Urine Urobilinogen Ur Leukocyte Esterase Urine RBC Urine WBC Ur Epithelial Cells Urine Crystals Urine Bacteria Urine Mucus Ur Culture Indicated? Urine Glucose 10/16/19 10/16/19 19:48 20:00 WBC RBC Hgb Hct MCV MCH MCHC RDW Plt Count MPV Immature Gran % Neutrophils % Lymphocytes % Monocytes % Eosinophils % Basophils % Absolute Neutrophils Absolute Lymphocytes Absolute Monocytes Absolute Eosinophils Absolute Basophils VBG pH 7.38 VBG pCO2 42 VBG pO2 43 VBG HCO3 25 VBG Total CO2 22 VBG O2 Saturation 77 VBG Base Excess 0.0 Sodium Potassium Chloride Carbon Dioxide Anion Gap BUN Creatinine Estimated GFR/1.73 m2 Glucose Lactate Calcium Magnesium Total Bilirubin Conjugated Bilirubin AST ALT Alkaline Phosphatase Total Protein Albumin Urine Color Yellow Urine Clarity Clear Urine pH 5.5 Ur Specific [place] 1.020 Urine Protein Trace H Urine Ketones Negative Urine Blood Trace-lysed H Urine Nitrite Negative Urine Bilirubin Small H Urine Urobilinogen 0.2 Ur Leukocyte Esterase Moderate H Urine RBC Not Applicable Urine WBC >50 H Ur Epithelial Cells Not Applicable Urine Crystals Not Applicable Urine Bacteria Not Applicable Urine Mucus Not Applicable Ur Culture Indicated? C&s done as ordered Urine Glucose Negative Last Vital Signs Temp 36.5 C 10/16/19 19:44 Pulse 66 10/16/19 20:37 Resp 21 10/16/19 20:40 BP 101/60 10/16/19 20:37 Pulse Ox 96 10/16/19 20:37 COVID-19 Screening In the past 14 days, have you traveled outside of [place] or [place]?: NO Had IN PERSON contact w/suspected or confirmed C-19 person: No
[2019-10-16] MEDS: Normal Saline 1,000 ML 150 ML IV (21:45)
[2019-10-16 22:37] LABS: Troponin I 6.43 ng/mL (<0.06)
[2019-10-17] VITALS (7 sets, daily range): BP systolic 110–135; BP diastolic 63–78; PULSE 59–66; RESP 16–19; TEMP 36.6–37.8; O2SAT 95–99
[2019-10-17] MEDS: LORazepam 0.5 MG TAB PO ×2 (00:54→22:34)
[2019-10-17] MEDS: PIPERACILLIN/TAZO 3.375 GM in Normal Saline 50 ML IVPB ×4 (02:51→19:54)
[2019-10-17] MEDS: Normal Saline 1,000 ML 150 ML IV ×2 (04:45→11:31)
[2019-10-17 07:12] LABS: Anion Gap 7.6 mmol/L (3-11); BUN 27 mg/dL (7-18); CO2 23.4 mmol/L (21.0-32.0); CREATININE 1.46 mg/dL (0.70-1.30); Chloride 104 mmol/L (98-107); Estimated GFR 46.82 (mL/min/1.73m2); Glucose 98 mg/dL (74-106); Potassium 3.9 mmol/L (3.5-5.1); Sodium 135 mmol/L (136-145)
[2019-10-17] MEDS: Rosuvastatin 10 MG TAB 20 MG PO (07:41)
[2019-10-17] MEDS: Normal Saline Flush 10 ML SYR IVP (07:41)
[2019-10-17] MEDS: Desmopressin 0.2 MG TAB PO ×2 (07:42→19:53)
[2019-10-17] MEDS: Aspirin 81 MG CHEW PO (07:42)
[2019-10-17] MEDS: Clopidogrel 75 MG TAB PO (07:42)
[2019-10-17] MEDS: Metoprolol 25 MG TAB 12.5 MG PO ×2 (07:42→19:53)
[2019-10-17 07:57] LABS: HCT 38.5 % (40.0-50.0); HGB 13.1 g/dL (13.5-17.5); Mean Corpuscular Hemoglobin 31.1 pg (27.0-33.0); Mean Corpuscular Volume 91.4 fL (80-95); Platelet Count 142 x1000/uL (130-400); RBC 4.21 m/cumm (4.50-6.00); RBC Distribution Width 13.1 % (11.8-14.1); White Blood Cell Count 8.73 k/cumm (4.4-10.8)
--- NOTE | 2019-10-17 09:40 | PDOC.CMIN ---
- If Service Date Differs Date of service: 10/17/19 Time of Service: 09:40 Care Management Initial Assess REASON FOR HOSPITALIZATION:: Bacteremia PAST MEDICAL HISTORY/PAST SURGICAL HISTORY:: Medical History (Updated 10/16/19 @ 20:48 by Nish Villa MD). Diabetes insipidus (Acute). Heart murmur (Acute). Hypercholesterolemia (Acute 08/08/08). Myocardial infarction (Chronic). Surgical History . Colonoscopy - IV Sedation (09/14/12). [facility] [place]; POLYP;DIVERTICULOSIS PREVIOUS FUNCTIONAL STATUS/SOCIAL/FAMILY SUPPORTS:: Naseem lives in [facility] with his s/o Gifty. He has three children and one grandchild. Most of his family lives in [place]. Gifty's family lives nearby, in [place]. 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 He is independent at baseline. CURRENT FUNCTIONAL STATUS:: Naseem was sitting up in bed when CM met with him. He reported that he was feeling much better. He stated that he had a heart attack on , was transferred to [facility], and had surgery there on Wednesday. After returning home on Wednesday, he woke up with chills and returned to the ED. He was sent home, feeling better, and was called back on Wednesday, as he was found to be bacteremic. Per report, he is on broad abx currently until the bacteria is identified. Once his abx course is clear, CM will support pt's goal to return home. He may need home IV abx, which is to be determined. CM will continue to follow. ADVANCE DIRECTIVES:: None on file. Has patient been provided with information about the portal?: Yes Did the patient sign up for the portal?: Yes (previously signed up) CODE STATUS:: Full Code INSURANCE COVERAGE / FINANCIAL ISSUES:: JATIN/ AARP CURRENT HOME/COMMUNITY SERVICES/EQUIPMENT:: No current equipment or services in the home. PRIMARY CARE PHYSICIAN:: Ceasar Pratt POTENTIAL DISCHARGE NEEDS:: Evaluations for further needs, follow up appoitnments PATIENT/FAMILY EDUCATION NEEDS:: Review discharge instructions regarding activity levels and medications, discussion of self care needs including ask me three ANTICIPATED BARRIERS TO DISCHARGE:: None identified at this time. TRANSPORTATION:: via private vehicle by family PLAN:: Once abx course is determined, Naseem will likely return home on oral abx vs home IV abx, coordinated by CM. He will follow up with his PCP and discharge plan of care. His s/o Gifty will drive him home via private vehicle. He may need new HH services if returning home with home IV abx treatment. CM will continue to follow.
--- NOTE | 2019-10-17 11:29 | PHA.REVIEW ---
Pharmacy Admission Review - Admission Clinical Review (Last Reviewed 10/16/19 @ 21:17 by Hua Batres MD) Bacteremia (Acute) Bacteremia (Acute) bee venom protein (honey bee) Adverse Reaction (Severe, Unverified 10/16/19 19:47) swell up like a baloon Height 5 ft 7 in Weight 93.44 kg - Comments Comments/Follow Ups: Gram negative rods found in urine culture, blood still pending. Bacteremia most likely from neurogenic bladder self cathetherization. Being empirically treated with Zosyn 3.375mg IV q6hrs - Renal Dosing Renal Dosing: BUN 27 mg/dL (7-18) H 10/17/19 06:35 Creatinine 1.46 mg/dL (0.70-1.30) H 10/17/19 06:35 Medications needing adjustments: Reviewed (est CrCl~ 39 mL/min Meds-OK) - Anticoagulation Anticoagulation: Hgb 13.1 g/dL (13.5-17.5) L 10/17/19 06:35 Hct 38.5 % (40.0-50.0) L 10/17/19 06:35 Plt Count 142 x1000/uL (130-400) 10/17/19 06:35 Creatinine 1.46 mg/dL (0.70-1.30) H 10/17/19 06:35 DVT Prohphylaxis: Reviewed (ASA & Plavix home meds) Medications: Aspirin Medications: Aspirin - Opiate Usage Evaluate Pain Scale/Pains Meds: N/A Scheduled Bowel Reg ordered if on Opiates?: No - Relevant Labs Sodium 135 mmol/L (136-145) L 10/17/19 06:35 Potassium 3.9 mmol/L (3.5-5.1) 10/17/19 06:35 Chloride 104 mmol/L (98-107) 10/17/19 06:35 Magnesium 1.7 mg/dL (1.8-2.4) L 10/16/19 19:48 Electrolytes, C-Reactive P, ESR: Reviewed (Troponin- 6.43) - DM Control DM Control: Glucose 98 mg/dL (74-106) 10/17/19 06:35 Insulin Dosing: Reviewed (Diabetes insipidus on Desmopressin) - Heart Failure/WA Heart Failure/WA: Troponin I 6.43 ng/mL (<0.06) H* 10/16/19 20:15 EF%, NILAM's, B-Blockers, Diuretics: Reviewed (tail end of NSTEMI (troponis elevated). NTG, Lopressor) - BP Control BP Control: Blood Pressure 113/66 Blood Pressure 119/74 Blood Pressure 121/74 If elevated: Reviewed (BP stable) - Qtc Review If Elevated: Reviewed (QTc-442 NA) - IV to PO Switch IV Medications: Reviewed (Zosyn IV awaiting Blood Culture and senstivites) - Home Meds Home Med List reviewed: Reviewed (Xanax and Sildenifil not ordered (has Lorazepam)) - Current meds Current Medication Order Review: Reviewed (Current meds OK)
--- NOTE | 2019-10-17 11:53 | PGE_ITS ---
Date of Service Date of service: 10/17/19 Time of Service: 11:53 Assessment and Plan Assessment and plan (1) Gram-negative bacteremia: Status: Acute Assessment and plan: No signs of sepsis. Probable urinary source with his chronic neurogenic bladder and clean intermittent catheterizations. Remarkable that he is not had urinary tract infections until now. Awaiting identification and sensitivities to be able to tailor antibiotics. Subsequent blood cultures remain negative thus far. No change in management at this time. (2) History of non-ST elevation myocardial infarction (NSTEMI): Status: Resolved Assessment and plan: No anginal chest pain. Benign telemetry which I think can be discontinued. Continue beta-gail, dual antiplatelet therapy and statin. (3) Neurogenic bladder: Status: Chronic Assessment and plan: Continue with self clean intermittent catheterization. Monitor urine output. (4) Diabetes insipidus: Status: Chronic Assessment and plan: Continue outpatient dose of desmopressin. (5) Acute kidney injury: Status: Acute Assessment and plan: BUN and creatinine close to if not at his baseline. Back off on IV hydration. Subjective Subjective Interval history since last seen: Patient feels great and cannot wait to get discharge. He has not had any respiratory GI or symptoms although has had significant volumes in his bladder with self-catheterization since IV hydration initiated on admission. He suspects he acquired urinary infection during his hospitalization. Reports that he is never had a UTI in the 5+ years that he has been doing clean intermittent catheterization at home. He does not know why he has a neurogenic bladder. Typically catheterizes 3-4 times daily and gets volumes at home of several 100 mL, sometimes up to 1 L. Brief temperature elevation of 37.8 without symptoms, back down without intervention to 36.6. Second set of blood cultures no growth thus far. BUN and creatinine are trending towards his baseline with overnight IV hydration. Exam Narrative Exam Narrative: Awake alert and in no distress. Telemetry has shown sinus rhythm, no dysrhythmias. No JVD. Lungs clear. Regular heart rhythm with no S3-S4 or murmur. Active bowel sounds. Trace ankle edema bilaterally with 1+ distal pulses. Symmetric movement of all extremities. Oriented x4. Objective Objective Clinical Data: Abnormal lab results 10/16/19 10/16/19 10/16/19 Range/Units 19:48 19:48 19:48 WBC 12.19 H D (4.4-10.8) k/cumm RBC 4.48 L (4.50-6.00) m/cumm Hgb (13.5-17.5) g/dL Hct (40.0-50.0) % Absolute Neutrophils 10.57 H (1.2-6.7) k/cumm Absolute Lymphocytes 0.98 L (1.2-3.4) k/cumm Sodium (136-145) mmol/L BUN 32 H D (7-18) mg/dL Creatinine 1.84 H (0.70-1.30) mg/dL Glucose 128 H (74-106) mg/dL Lactate 1.8 H (0.6-1.4) mmol/L Calcium (8.5-10.1) mg/dL Magnesium 1.7 L (1.8-2.4) mg/dL AST 52 H (15-37) U/L Troponin I (<0.06) ng/mL Albumin 3.3 L (3.4-5.0) g/dL Urine Protein (Negative) mg/dL Urine Blood (Negative) Urine Bilirubin (Negative) Ur Leukocyte Esterase (Negative) Urine WBC (0-5) HPF 10/16/19 10/16/19 10/17/19 Range/Units 20:00 20:15 06:35 WBC (4.4-10.8) k/cumm RBC (4.50-6.00) m/cumm Hgb (13.5-17.5) g/dL Hct (40.0-50.0) % Absolute Neutrophils (1.2-6.7) k/cumm Absolute Lymphocytes (1.2-3.4) k/cumm Sodium 135 L (136-145) mmol/L BUN 27 H (7-18) mg/dL Creatinine 1.46 H (0.70-1.30) mg/dL Glucose (74-106) mg/dL Lactate (0.6-1.4) mmol/L Calcium 8.0 L (8.5-10.1) mg/dL Magnesium (1.8-2.4) mg/dL AST (15-37) U/L Troponin I 6.43 H* (<0.06) ng/mL Albumin (3.4-5.0) g/dL Urine Protein Trace H (Negative) mg/dL Urine Blood Trace-lysed H (Negative) Urine Bilirubin Small H (Negative) Ur Leukocyte Esterase Moderate H (Negative) Urine WBC >50 H (0-5) HPF 10/17/19 Range/Units 06:35 WBC (4.4-10.8) k/cumm RBC 4.21 L (4.50-6.00) m/cumm Hgb 13.1 L (13.5-17.5) g/dL Hct 38.5 L (40.0-50.0) % Absolute Neutrophils (1.2-6.7) k/cumm Absolute Lymphocytes (1.2-3.4) k/cumm Sodium (136-145) mmol/L BUN (7-18) mg/dL Creatinine (0.70-1.30) mg/dL Glucose (74-106) mg/dL Lactate (0.6-1.4) mmol/L Calcium (8.5-10.1) mg/dL Magnesium (1.8-2.4) mg/dL AST (15-37) U/L Troponin I (<0.06) ng/mL Albumin (3.4-5.0) g/dL Urine Protein (Negative) mg/dL Urine Blood (Negative) Urine Bilirubin (Negative) Ur Leukocyte Esterase (Negative) Urine WBC (0-5) HPF Vital Signs Temperature 36.6 C 10/17/19 11:16 Temperature Source Tympanic 10/17/19 11:16 Pulse 59 L 10/17/19 11:16 Pulse Rhythm Regular 10/17/19 03:19 Pulse 57 L 10/16/19 21:50 Respiratory Rate 18 10/17/19 11:16 Respiratory Effort Non-Labored 10/17/19 03:19 Respiratory Depth Normal 10/17/19 03:19 Respiratory Pattern Normal 10/17/19 03:19 Blood Pressure 113/66 10/17/19 11:16 Blood Pressure Mean 67 10/16/19 21:48 Pulse Oximetry 97 10/17/19 11:16 Oxygen Delivery Method Room Air 10/17/19 11:16 Oxygen Flow Rate 0 10/17/19 11:16 Pain Level 0 10/17/19 11:16 Intake & Output 10/16/19 10/16/19 10/17/19 11:59 23:59 11:59 Intake Total 110 / 110 2500.0 / 2500.0 Output Total 1000 / 1000 Balance 110 / 110 1500.0 / 1500.0 Weight 93.44 kg Intake: IV 110 / 110 2050.0 / 2050.0 Oral 450 / 450 Output: Urine 1000 / 1000 Other: Urine Color Dark Eliz Urine Appearance Clear Clear Urine Odor Normal Voiding Methods Self-Catheterization Laboratory Results WBC 8.73 k/cumm (4.4-10.8) 10/17/19 06:35 RBC 4.21 m/cumm (4.50-6.00) L 10/17/19 06:35 Hgb 13.1 g/dL (13.5-17.5) L 10/17/19 06:35 Hct 38.5 % (40.0-50.0) L 10/17/19 06:35 MCV 91.4 fL (80-95) 10/17/19 06:35 MCH 31.1 pg (27.0-33.0) 10/17/19 06:35 MCHC 34.0 g/dL (32.0-36.0) 10/17/19 06:35 RDW 13.1 % (11.8-14.1) 10/17/19 06:35 Plt Count 142 x1000/uL (130-400) 10/17/19 06:35 MPV 9.0 fL (8.0-11.0) 10/17/19 06:35 Immature Gran % 0.5 % 10/16/19 19:48 Neutrophils % 86.7 10/16/19 19:48 Lymphocytes % 8.0 10/16/19 19:48 Monocytes % 3.7 10/16/19 19:48 Eosinophils % 0.9 10/16/19 19:48 Basophils % 0.2 10/16/19 19:48 Absolute Neutrophils 10.57 k/cumm (1.2-6.7) H 10/16/19 19:48 Absolute Lymphocytes 0.98 k/cumm (1.2-3.4) L 10/16/19 19:48 Absolute Monocytes 0.45 k/cumm (0.11-0.7) 10/16/19 19:48 Absolute Eosinophils 0.11 k/cumm (0.0-0.7) 10/16/19 19:48 Absolute Basophils 0.02 k/cumm (0.0-0.2) 10/16/19 19:48 VBG pH 7.38 (7.35-7.45) 10/16/19 19:48 VBG pCO2 42 mm/Hg (34-47) 10/16/19 19:48 VBG pO2 43 mm/Hg (28-44) 10/16/19 19:48 VBG HCO3 25 mmol/L (22-28) 10/16/19 19:48 VBG Total CO2 22 mmol/L (22-29) 10/16/19 19:48 VBG O2 Saturation 77 % (70-80) 10/16/19 19:48 VBG Base Excess 0.0 mmol/L (-3-3) 10/16/19 19:48 Sodium 135 mmol/L (136-145) L 10/17/19 06:35 Potassium 3.9 mmol/L (3.5-5.1) 10/17/19 06:35 Chloride 104 mmol/L (98-107) 10/17/19 06:35 Carbon Dioxide 23.4 mmol/L (21.0-32.0) 10/17/19 06:35 Anion Gap 7.6 mmol/L (3-11) 10/17/19 06:35 BUN 27 mg/dL (7-18) H 10/17/19 06:35 Creatinine 1.46 mg/dL (0.70-1.30) H 10/17/19 06:35 Estimated GFR/1.73 m2 46.82 (mL/min/1.73m2) 10/17/19 06:35 Glucose 98 mg/dL (74-106) 10/17/19 06:35 Lactate 1.8 mmol/L (0.6-1.4) H 10/16/19 19:48 Calcium 8.0 mg/dL (8.5-10.1) L 10/17/19 06:35 Magnesium 1.7 mg/dL (1.8-2.4) L 10/16/19 19:48 Total Bilirubin 0.6 mg/dL (0.2-1.0) 10/16/19 19:48 Conjugated Bilirubin 0.15 mg/dL (0.00-0.20) 10/16/19 19:48 AST 52 U/L (15-37) H 10/16/19 19:48 ALT 35 U/L (16-63) 10/16/19 19:48 Alkaline Phosphatase 65 U/L (46-116) 10/16/19 19:48 Troponin I 6.43 ng/mL (<0.06) H* 10/16/19 20:15 Total Protein 6.7 g/dL (6.4-8.2) 10/16/19 19:48 Albumin 3.3 g/dL (3.4-5.0) L 10/16/19 19:48 Urine Color Yellow (Yellow) 10/16/19 20:00 Urine Clarity Clear (Clear) 10/16/19 20:00 Urine pH 5.5 (5-8) 10/16/19 20:00 Ur Specific [place] 1.020 (1.005-1.025) 10/16/19 20:00 Urine Protein Trace mg/dL (Negative) H 10/16/19 20:00 Urine Ketones Negative mg/dL (Negative) 10/16/19 20:00 Urine Blood Trace-lysed (Negative) H 10/16/19 20:00 Urine Nitrite Negative (Negative) 10/16/19 20:00 Urine Bilirubin Small (Negative) H 10/16/19 20:00 Urine Urobilinogen 0.2 EU/dL (Up TO 0.2) 10/16/19 20:00 Ur Leukocyte Esterase Moderate (Negative) H 10/16/19 20:00 Urine RBC Not Applicable 10/16/19 20:00 Urine WBC >50 HPF (0-5) H 10/16/19 20:00 Ur Epithelial Cells Not Applicable 10/16/19 20:00 Urine Crystals Not Applicable 10/16/19 20:00 Urine Bacteria Not Applicable 10/16/19 20:00 Urine Mucus Not Applicable 10/16/19 20:00 Ur Culture Indicated? C&s done as ordered 10/16/19 20:00 Urine Glucose Negative mg/dL (Negative) 10/16/19 20:00
[2019-10-17 13:22] LABS: COVID-19 RT-PCR UVMMC Result Negative (Negative)
--- NOTE | 2019-10-17 15:43 | CHAPLAIN ---
Naseem was resting in bed when I visited. He easily engaged in a conversation. Naseem is [employer], and converted more than 40 years ago. He was part of the [facility] for many years, but is no longer affiliated but still knows many people there. We talked about his [employer] history and some of the issues facing Reji Sarkar at this time. He explained that he is here because of an infection that he got after having stents put in following a heart attack. Naseem seems to be comfortable here, and has been in touch with family and friends by phone.
[2019-10-18] MEDS: Normal Saline 1,000 ML 80 ML IV (00:09)
[2019-10-18] MEDS: PIPERACILLIN/TAZO 3.375 GM in Normal Saline 50 ML IVPB ×2 (01:59→08:27)
[2019-10-18 07:23] VITALS: BP 133/76; PULSE 64; RESP 18; TEMP 37; O2SAT 97
[2019-10-18] MEDS: Rosuvastatin 10 MG TAB 20 MG PO (08:28)
[2019-10-18] MEDS: Aspirin 81 MG CHEW PO (08:28)
[2019-10-18] MEDS: Metoprolol 25 MG TAB 12.5 MG PO (08:28)
[2019-10-18] MEDS: Desmopressin 0.2 MG TAB PO (08:28)
[2019-10-18] MEDS: Clopidogrel 75 MG TAB PO (08:28)
--- NOTE | 2019-10-18 10:32 | DSE_ITS ---
Date of service: 10/18/19 Time of Service: 10:32 DS: Diagnosis Discharge Diagnosis (1) Gram-negative bacteremia: Status: Acute Asessment and Plan: Brief chills and rigors on his initial ER visit prompting blood cultures but clinically stable and discharged home only to be recalled for admission when 4 out of 4 blood culture bottles grew gram-negative akanksha within 12 hours. Subsequent identification of Citrobacter freundii on blood and urine. Urinary source felt to be the most likely with his known neurogenic bladder, clean intermittent catheterizations with volume sometimes as high as 1 L. He was never febrile during hospitalization. White count on presentation of 12,000 dropping to 8700 overnight. Empiric treatment with Pipracil and/tazobactam tolerated well with some loose stools but no thomas diarrhea. Subsequent blood culture negative at 38 hours of growth. He had no systemic symptoms, felt well throughout his hospitalization and is being discharged on trimethoprim/sulfamethoxazole for an additional 10 days. He has been encouraged to increase the frequency of self catheterizations if he has bladder volumes above approximately 800 cc. (2) History of non-ST elevation myocardial infarction (NSTEMI): Status: Resolved Asessment and Plan: He had no chest pains during his hospitalization, no dysrhythmias on telemetry and was maintained on his outpatient doses of Crestor, metoprolol, aspirin and clopidogrel. His troponin on presentation to the emergency room was 10.07 dropping overnight to 6.43. By report his troponin when he left [facility] following his stenting procedure was around 15. (3) Neurogenic bladder: Status: Chronic Asessment and Plan: He continued with self intermittent clean catheterizations without problems during this hospitalization. With IV hydration he did have bladder volume approaching 1 L on one occasion. (4) Diabetes insipidus: Status: Chronic Asessment and Plan: No changes were made to his outpatient dose of desmopressin. (5) Acute kidney injury: Status: Acute Asessment and Plan: BUN and creatinine were a little above his usual at 32 and 1.84 on admission dropping to 27 and 1.46 today prior to discharge, close to if not at his baseline. He received IV hydration overnight which was then discontinued. He had excellent urine output throughout his hospitalization. Discharge Plan Disposition Condition: Stable Discharge Details Chief Complaint: GenMedical Clinical Impression: Bacteremia Reason For Visit: BACTEREMIA Admit Date/Time: 10/17/19 08:41 Admit Provider: Hua Batres Attending Provider: Hua Batres Primary Care Provider: Ceasar Pratt ED Provider: Nish Villa Hospital Course Hospital Course: Chief Complaint: shaking chills Narrative: 79 male with neurogenic bladder, self cath. In [facility] 2 days [employer] with NSTEMI, s/p stent x 3. Seen here early this AM with fleeting episode atypical CP, lasting less than one minute, and not similar to ACS; but then had shaking chills. Blood cxx drawn then d/c'ed to home. Called back for cxx + GNR. Reports only that he feels somewhat wan and fatigued. Received dose Zosyn and admitted. History of neurogenic bladder for at least the past 5 years with clean intermittent catheterizations performed at home. States he was not able to clean the catheter as he usually does while he was hospitalized at [facility]. States that his bladder capacity is quite large and it is not unusual for him to have volumes close to 1 L. No recent hematuria or obvious pyuria when he has catheterized himself. No prior history of febrile UTIs. Please see above problems for hospital course by problem. Home Meds and New Rx's Prescriptions: New sulfamethoxazole-trimethoprim 800-160 mg tablet 1 tab PO BID Qty: 20 RF: 0 Continued lorazepam 0.5 mg tablet 0.5 mg PO QHS PRN (Reason: sleep) Qty: 30 RF: 0 nitroglycerin [Nitrostat] 0.3 mg Tablet, Sublingual 0.3 mg SUBLINGUAL Q5M PRNRF: 0 clopidogrel [Plavix] 75 mg Tablet 75 mg PO DAILY RF: 0 aspirin 81 mg Tablet,Chewable 81 mg PO DAILY RF: 0 rosuvastatin 20 mg Tablet 20 mg PO DAILY RF: 0 metoprolol tartrate 25 mg Tablet 12.5 mg PO BID RF: 0 desmopressin 0.1 mg tablet 0.2 mg PO BID RF: 0 Discharge Instructions Instructions: Bacteremia (DC) Additional Instructions: Call [facility] or return to the ER if you develop chills, fever above 100, diarrhea with cramps or blood, rash or blood or puss in your urine. Referrals: Alexis Jung DO [ [facility]] - (Keep the appointment that is already scheduled. ) Activity:: Activity as Tolerated Activity:: Activity as Tolerated Equipment/Supplies:: No Equipment Needed Diet:: As Tolerated Discharge Data Discharge Physician: Otto Carranza DS: Summary Status at Discharge Functional status at discharge: independent ambulation Overall status at discharge: patient is back to baseline Mental Status: mental status grossly normal Speech and Movement: speech and movement normal Mood: congruent mood Affect: normal affect Time Spent with Patient providing and/or coordinating discharge services: Less than 30 minutes Exam Narrative Exam Narrative: On the morning of discharge he is awake alert and in no distress. Temperature 37 blood pressure 133/76 SaO2 97% on room air. Lungs are clear throughout. Regular heart rhythm with no murmur S3 or S4. Abdomen soft nontender and bladder is nonpalpable. Trace ankle edema. Sits up and transfers unassisted. Psych Mental Status: mental status grossly normal Speech and Movement: speech and movement normal Mood: congruent mood Affect: normal affect DS: Data Vitals/I&O Vitals and I&O: Vital Signs Temperature 37 C 10/18/19 07:23 Temperature Source Tympanic 10/18/19 07:23 Pulse 64 10/18/19 07:23 Pulse Rhythm Regular 10/18/19 00:19 Pulse 57 L 10/16/19 21:50 Respiratory Rate 18 10/18/19 07:23 Respiratory Effort Non-Labored 10/18/19 00:19 Respiratory Depth Normal 10/18/19 00:19 Respiratory Pattern Normal 10/18/19 00:19 Blood Pressure 133/76 10/18/19 07:23 Blood Pressure Mean 67 10/16/19 21:48 Pulse Oximetry 97 10/18/19 07:23 Oxygen Delivery Method Room Air 10/18/19 07:23 Oxygen Flow Rate 0 10/18/19 07:23 Pain Level 0 10/18/19 07:23 Intake & Output 10/17/19 10/17/19 10/18/19 11:59 23:59 11:59 Intake Total 2550.0 / 3755.0 1205 / 3755.0 1405 / 1405 Output Total 1000 / 2800 1800 / 2800 1800 / 1800 Balance 1550.0 / 955.0 -595 / 955.0 -395 / -395 Intake: IV 2100.0 / 2325.0 225 / 2325.0 925 / 925 Oral 450 / 1430 980 / 1430 480 / 480 Output: Urine 1000 / 2800 1800 / 2800 1800 / 1800 Other: Urine Color Dark Eliz Dark Eliz Yellow Urine Appearance Clear Clear Clear Urine Odor Normal Normal Normal Stool Size Large Stool Characteristics Liquid Voiding Methods Self-Catheterization Toilet Toilet Self-Catheterization Data Completed and Pending Labs on day of discharge: Labs from last 24 hours 10/16/19 21:10 COVID-19 PCR Negative Nasopharyn COVID-19 PCR Not Applicable Ref Test Perform Site [facility] lab Preliminary micro results at discharge 10/16/19 20:28 Blood Culture - Preliminary Blood NO GROWTH 24 HOURS 10/16/19 20:15 Blood Culture - Preliminary Blood NO GROWTH 24 HOURS BUN 32 creatinine 1.84 admission 27 and 1.46 respectively day prior to discharge. White count 12,190 on admission 8730 on discharge. Chest x-ray clear. Blood cultures drawn the morning of October 15 growing Citrobacter freundii, same from urine, resistant to first generation cephalosporin, sensitive to all other tested antibiotics including nitrofurantoin, Cipro and trimethoprim/sulfamethoxazole. [facility] Medical History (Updated 10/17/19 @ 11:58 by Otto Carranza MD) Diabetes insipidus (Chronic) Heart murmur (Acute) History of non-ST elevation myocardial infarction (NSTEMI) (Resolved) Hypercholesterolemia (Acute 08/08/08) Myocardial infarction (Chronic) Neurogenic bladder (Chronic) Surgical History Colonoscopy - IV Sedation (09/14/12) [facility] [place]; POLYP;DIVERTICULOSIS Social History Smoking/Tobacco Use Status: Former Tobacco Use Alcohol Intake: current Alcohol Intake frequency: a few times a week Alcohol type: beer and hard liquor Drug use: Occasionally Substance use type: marijuana Do you feel safe at home: Yes Do you feel safe in your relationship?: Yes
--- NOTE | 2019-10-18 11:05 | PDOC.CMDIS ---
- If Service Date Differs Date of service: 10/18/19 Time of Service: 11:05 LACE Index Scoring Tool - Questions: Length of Stay (in days): 3 Acuity (Admit via E.D.?): Yes Comorbidities: Previous M.I., Diabetes w/o Complication E.D. Visits: 3 - Answers: Total Score: 11 Risk of Readmission: High Risk Care Management Discharge Reason for Hospitalization: Bacteremia Discharge Plan: Naseem will return home with no additional services at this time. His s/o will drive him home via private message when ready. He will finish his abx course orally, per MD. He will follow up with his PCP and discharge plan of care. He is happy to be returning home. Patient/Family Education Needs: Review discharge instructions regarding activity levels and medications, discussion of self care needs including 'ask me three'.
--- NOTE | 2019-10-18 11:19 | CHAPLAIN ---
Naseem said he's headed home later today. Yesterday he commented that he has a lot of support and people who care about me in his comanche of Hindu friends. Today he talked about his experience having a heart attack and then an infection. He said the heart attack wasn't a scary experience as he trusted the medical team caring for him when they proposed a solution and he received three stents. The infection worried him more, Naseem said, because there was less control of it and he knew it could possibly turn into sepsis.
== END 2019-10-18 11:40 | disposition home or self-care (01) | DRG 872 ==
LOC: ER 21:34 → MS 22:06
PROVIDERS: Admitting Provider General Practice; Emergency Provider Emergency Medicine; PCP Family Medicine; Visit Provider Internal Medicine
DX: R78.81 Bacteremia (principal); Z16.19 Resistance to other specified beta lactam antibiotics; N39.0 Urinary tract infection, site not specified; E23.2 Diabetes insipidus; N17.9 Acute kidney failure, unspecified; B96.89 Other specified bacterial agents as the cause of diseases classified elsewhere; R07.9 Chest pain, unspecified; I25.2 Old myocardial infarction; Z95.5 Presence of coronary angioplasty implant and graft; N31.9 Neuromuscular dysfunction of bladder, unspecified
CPT/HCPCS: 36415; 80048; 80053; 82805; 84145; 85027; 87040; 87077; 93005; 96360; 96365; 99222; 99232; 99238; 99284; 99285; U0003; 71045; 81003; 81015; 82248; 83605; 83735; 83880; 84484; 85025; 85610; 85730; 87086; 87186; 93010; 99218; G0378; J2543

== ENCOUNTER 2019-12-28 15:33 | Outpatient (CLI) | payer MEDICARE, SELFPAY ==
--- NOTE | 2019-12-28 13:45 | DI.RAD_ITS ---
EXAM: XR KNEE RT 3V AP,LAT,CATALINA CLINICAL HISTORY: Effusion right knee,PAIN,M25.461. TECHNIQUE: 2D digital imaging was performed. COMPARISON: CR CHEST 2 VIEWS PA,LAT from 01/07/2011 FINDINGS: Mild degenerative changes are seen in the right knee characterized by periarticular spurring. The tejas int spaces are otherwise well maintained. Soft tissues are unremarkable. A small enthesophyte is se en at the superior patella. IMPRESSION: Mild degenerative changes. DATA REPOSITORY: RADIATION DOSE DELIVERED:
== END 2019-12-28 15:53 ==
PROVIDERS: PCP Emergency Medicine; Visit Provider Family Medicine
DX: M25.461 Effusion, right knee (principal); M17.11 Unilateral primary osteoarthritis, right knee
CPT/HCPCS: 73562

== ENCOUNTER 2020-03-05 11:58 | Outpatient (CLI) | payer MEDICARE, SELFPAY ==
--- NOTE | 2020-03-05 11:45 | DI.RAD_ITS ---
EXAM: XR KNEE RT 2V AP,LAT CLINICAL HISTORY: right knee pain. TECHNIQUE: 2D digital imaging was performed. COMPARISON: CR XR KNEE RT 3V AP,LAT,CATALINA from 12/28/2019 FINDINGS: BONES: No acute fracture is present. No bony destructive lesion is seen. JOINTS: The knee is normally aligned. No joint effusion is seen. There is mild medial femoral tibial joint space narrowing and mild periarticular spurring. There is mild spurring at the quadriceps insertion on the patella. SOFT TISSUE: Normal. IMPRESSION: Mild degenerative changes. DATA REPOSITORY: RADIATION DOSE DELIVERED:
== END 2020-03-05 12:18 ==
PROVIDERS: PCP Nurse Practitioner; Referring Provider Nurse Practitioner; Visit Provider Orthopaedic Surgery
DX: M17.11 Unilateral primary osteoarthritis, right knee (principal); M25.561 Pain in right knee; M25.461 Effusion, right knee; M70.51 Other bursitis of knee, right knee
CPT/HCPCS: 20610; 99203; 99214; 73560; J1030

== ENCOUNTER → 2020-04-23 10:43 | Outpatient (BNVA) | payer MEDICARE, SELFPAY | PROVIDERS: PCP Nurse Practitioner; Referring Provider Nurse Practitioner; Visit Provider Orthopaedic Surgery | DX: M70.51 Other bursitis of knee, right knee; Z98.890 Other specified postprocedural states | CPT/HCPCS: 99212; 99213 ==

== ENCOUNTER 2020-06-12 03:12 | Outpatient (CLI) | payer MEDICARE, SELFPAY ==
[2020-06-12 08:59] LABS: HCT 47.2 % (40.0-50.0); HGB 15.7 g/dL (13.5-17.5); MCH 30.7 pg (27.0-33.0); MCHC 33.3 % (32.0-36.0); MCV 92.2 fL (80-95); MPV 8.7 fL (8.0-11.0); Platelet Count 160 10^3/uL (130-400); RBC 5.12 10^6/uL (4.36-5.78); RDW 12.3 % (11.8-14.1); RDW-SD 41.8 fL; WBC 6.44 10^3/uL (4.4-10.8)
[2020-06-12 09:58] LABS: BUN 35 mg/dL (7-18); Calcium 8.6 mg/dL (8.5-10.1); Calculated LDL 73 mg/dL (<100); Chloride 108 mmol/L (98-107); Cholesterol 145 mg/dL (<200); Estimated GFR 53.39 (mL/min/1.73m2); Glucose 106 mg/dL (74-106); HDL Cholesterol 43 mg/dL (40-60); Potassium 4.5 mmol/L (3.5-5.1); Sodium 140 mmol/L (136-145); Triglyceride 146 mg/dL (<150)
== END 2020-06-12 03:32 ==
PROVIDERS: PCP Nurse Practitioner; Visit Provider Nurse Practitioner
DX: E78.00 Pure hypercholesterolemia, unspecified (principal); E23.2 Diabetes insipidus; F51.01 Primary insomnia
CPT/HCPCS: 36415; 80048; 80061; 85027

== ENCOUNTER 2020-09-10 03:15 | Outpatient (CLI) | payer MEDICARE, SELFPAY ==
[2020-09-10 22:31] LABS: PSA, Screening 2.2 ng/mL (0.0-6.5)
== END 2020-09-10 03:16 | disposition home or self-care (01) ==
LOC: LOS 03:15
PROVIDERS: PCP Nurse Practitioner; Visit Provider Nurse Practitioner
DX: N40.1 Benign prostatic hyperplasia with lower urinary tract symptoms (principal); Z12.5 Encounter for screening for malignant neoplasm of prostate
CPT/HCPCS: 36415; 84153

== ENCOUNTER 2021-09-26 03:37 | Outpatient (CLI) | payer MEDICARE, SELFPAY ==
[2021-09-26 13:33] LABS: Anion Gap 8.8 mmol/L (3-11); BUN 24 mg/dL (7-18); CO2 25.2 mmol/L (21.0-32.0); CREATININE 1.2 mg/dL (0.70-1.30); Calcium 8.4 mg/dL (8.5-10.1); Calculated LDL 47 mg/dL (<100); Chloride 102 mmol/L (98-107); Cholesterol 107 mg/dL (<200); Glucose 85 mg/dL (74-106); HDL Cholesterol 47 mg/dL (40-60); Potassium 4.4 mmol/L (3.5-5.1); Sodium 136 mmol/L (136-145); Triglyceride 69 mg/dL (<150)
== END 2021-09-26 03:38 | disposition home or self-care (01) ==
LOC: LBO 03:37
PROVIDERS: PCP Nurse Practitioner; Visit Provider Nurse Practitioner
DX: I25.2 Old myocardial infarction (principal); E23.2 Diabetes insipidus
CPT/HCPCS: 36415; 80048; 80061

== ENCOUNTER 2022-09-11 11:48 | Outpatient (CLI) | payer MEDICARE, SELFPAY ==
--- NOTE | 2022-09-11 11:45 | RT.EKG_ITS ---
APPROVED REPORT Exam: Resting ECG Reason for Exam: dizziness Patient Location: O HR:53 bpm ECG Measurements Heart Rate 53 AXIS VA 219 P -29 QRSd 98 QRS 56 QT 498 T 32 QTc 468 Conclusion Sinus rhythm...normal P axis, V-rate 50- 99 Borderline prolonged VA interval...VA >212, V-rate 50- 90 Low voltage, extremity leads...all extremity leads <0.5mV Abnormal R-wave progression, late transition...QRS area<0 in V5/V6
== END 2022-09-11 11:49 | disposition home or self-care (01) ==
LOC: DI.CM 11:49
PROVIDERS: PCP Nurse Practitioner Family; Visit Provider Nurse Practitioner Family
DX: R42 Dizziness and giddiness (principal)
CPT/HCPCS: 93010

== ENCOUNTER 2022-09-11 14:42 | Outpatient (REF) | payer MEDICARE, SELFPAY ==
[2022-09-11 21:06] LABS: HCT 46.4 % (40.0-50.0); HGB 15.8 g/dL (13.5-17.5); MCHC 34.1 % (32.0-36.0); MCV 91 fL (80-95); MPV 9.2 fL (8.0-11.0); Platelet Count 170 10^3/uL (130-400); RBC 5.09 10^6/uL (4.36-5.78); RDW 12.9 % (11.8-14.1); RDW-SD 43.4 fL; WBC 5.73 10^3/uL (4.4-10.8)
[2022-09-11 21:24] LABS: ALT 34 U/L (16-63); AST 29 U/L (15-37); Alkaline Phosphatase 81 U/L (46-116); BUN 22 mg/dL (7-18); Bilirubin, Total 0.5 mg/dL (0.2-1.0); CREATININE 1.4 mg/dL (0.70-1.30); Chloride 105 mmol/L (98-107); Estimated GFR 50.81 (mL/min/1.73m2); Glucose 103 mg/dL (74-106); Potassium 4.6 mmol/L (3.5-5.1); Sodium 138 mmol/L (136-145); Total Protein 7.4 g/dL (6.4-8.2)
[2022-09-11 22:13] LABS: Calculated LDL 70 mg/dL (<100); Cholesterol 142 mg/dL (<200); HDL Cholesterol 45 mg/dL (40-60); Triglyceride 136 mg/dL (<150)
== END 2022-09-11 14:43 | disposition home or self-care (01) ==
LOC: LBN 14:42
PROVIDERS: PCP Nurse Practitioner Family; Visit Provider Nurse Practitioner Family
DX: E78.00 Pure hypercholesterolemia, unspecified (principal); R42 Dizziness and giddiness; E23.2 Diabetes insipidus
CPT/HCPCS: 80053; 80061; 85027

== ENCOUNTER 2022-10-09 15:48 | Emergency (ER) | payer MEDICARE, SELFPAY ==
--- NOTE | 2022-10-09 | DI.RAD_ITS ---
Exam(s) XR CHEST 2V PA LATERAL EXAM: XR CHEST 2V PA LATERAL CLINICAL HISTORY: chest pain. TECHNIQUE: 2D digital imaging was performed. COMPARISON: CR,XR XR PORTABLE CHEST AP from 10/16/2019 FINDINGS: 2 views: Heart size is normal. The mediastinum is not widened. Lungs are clear. No infiltrates nor pleural effusions. IMPRESSION: No acute pulmonary findings.No significant change compared to 2019. DATA REPOSITORY: RADIATION DOSE DELIVERED:
--- NOTE | 2022-10-09 15:45 | RT.EKG_ITS ---
APPROVED REPORT Exam: Resting ECG Reason for Exam: chest pain Patient Location: E HR:54 bpm ECG Measurements Heart Rate 54 AXIS HI 220 P -6 QRSd 96 QRS 41 QT 474 T 29 QTc 448 Conclusion Sinus bradycardia...rate< 60 Prolonged HI interval...HI >220, V-rate 50- 90 Consider anterior infarct...Q >30mS in V2-V5 Narrow complex sinus bradycardia with first-degree AV block at a rate of 54. Low voltage based on li mb leads. Appears similar to prior dated last month.
[2022-10-09 16:12] VITALS: BP 130/74; PULSE 57; RESP 16; TEMP 36.8; O2SAT 98
--- NOTE | 2022-10-09 17:04 | DI.VRAD_ITS ---
PROCEDURE INFORMATION: Exam: XR Chest Exam date and time: 10/09/2022 4:40 PM Age: 82 years old Clinical indication: Other: Chest pain TECHNIQUE: Imaging protocol: Radiologic exam of the chest. Views: 2 views. COMPARISON: CR XR PORTABLE CHEST AP 10/16/2019 5:43 AM FINDINGS: Lungs: The lung volumes are increased with flattening of the diaphragms. There are superimposed consolidations. Pleural spaces: Unremarkable. No pleural effusion. No pneumothorax. Heart/Mediastinum: The heart is normal in size and has a slight left ventricular configuration. The aorta is normal in diameter. Bones/joints: Unremarkable. IMPRESSION: No acute cardiopulmonary disease Dictated and Authenticated by: Preet Jang MD. Ordering:JU Johns MD
[2022-10-09] MEDS: Aspirin 81 MG CHEW 324 MG CH (17:13)
[2022-10-09 17:37] VITALS: RESP 15
[2022-10-09 17:40] LABS: Abs Immature Grans 0.02 10^3/uL (0.0-0.06); Absolute Basophil Count 0.04 10^3/uL (0.0-0.2); Absolute Eosinophil Count 0.18 10^3/uL (0.0-0.7); Absolute Lymphocyte Count 3.03 10^3/uL (1.2-3.4); Absolute Monocyte Count 0.61 10^3/uL (0.1-0.8); Absolute Neutrophil Count 2.69 10^3/uL (1.2-6.7); Basophils % 0.6; Eosinophils % 2.7; HCT 44.7 % (40.0-50.0); HGB 15.3 g/dL (13.5-17.5); Immature Grans % 0.3; Lymphocytes % 46.1; MCH 30.9 pg (27.0-33.0); MCHC 34.2 % (32.0-36.0); MCV 90 fL (80-95); MPV 8.5 fL (8.0-11.0); Monocytes % 9.3; Platelet Count 143 10^3/uL (130-400); RBC 4.95 10^6/uL (4.36-5.78); RDW 12.5 % (11.8-14.1); RDW-SD 41.4 fL; WBC 6.57 10^3/uL (4.4-10.8)
[2022-10-09 18:03] LABS: ALT 27 U/L (16-63); AST 17 U/L (15-37); Albumin 3.7 g/dL (3.4-5.0); Alkaline Phosphatase 85 U/L (46-116); Anion Gap 5.2 mmol/L (3-11); BUN 28 mg/dL (7-18); Bilirubin, Total 0.4 mg/dL (0.2-1.0); CO2 27.8 mmol/L (21.0-32.0); CREATININE 1.2 mg/dL (0.70-1.30); Calcium 8.7 mg/dL (8.5-10.1); Chloride 106 mmol/L (98-107); Estimated GFR 61.13 (mL/min/1.73m2); Glucose 98 mg/dL (74-106); Magnesium 1.9 mg/dL (1.8-2.4); NT-proBNP 791 pg/mL (<300); Sodium 139 mmol/L (136-145); Total Protein 7.2 g/dL (6.4-8.2); Troponin I < 50 ng/L (<or=60)
[2022-10-09] MEDS: Ketorolac 15 MG/ML VIAL IVP (19:01)
--- NOTE | 2022-10-09 19:36 | ED.GENADUL_ITS ---
Discharge Plan Disposition Patient Disposition: Against Medical Advice Discharge Details Clinical Impression: Chest pain Primary Care Provider: Zion Quinones ED Provider: Nat Le Home Meds and New Rx's Prescriptions: No Action bisoprolol fumarate 5 mg tablet 5 mg PO DAILY melatonin 5 mg capsule 5 - 10 mg PO QHS PRN lorazepam 0.5 mg tablet 0.5 mg PO QHS PRN (Reason: sleep) Qty: 30 5RF aspirin 81 mg tablet,chewable 81 mg PO DAILY Qty: 90 4RF rosuvastatin 20 mg tablet 20 mg PO DAILY Qty: 90 4RF desmopressin 0.1 mg tablet 0.2 mg PO DAILY Qty: 180 4RF nitroglycerin [Nitrostat] 0.3 mg Tablet, Sublingual 0.3 mg SUBLINGUAL Q5M PRN Discharge Data Discharge Date/Time-TO BE ENTERED AT DEPARTURE: 10/09/22 20:01 Discharge Comment: Pt left ama Medical Decision Making <Nat Le NP - Last Filed: 10/10/22 20:20> Patient presents with symptoms of right-sided chest pain but also with lightheadedness that has been occurring over the past 24 hours. Concern for dysrhythmia ACS, no recent travel no unilateral leg swelling. Vital signs are stable not orthostatic not tachycardic not tachypneic O2 sats in the mid to high 90s on room air. Will establish IV EKG shows no acute ST segment changes first set of labs show normal troponin electrolytes kidney function and no abnormalities. His chest x-ray shows no acute cardiopulmonary findings. On arrival he had received aspirin 324 mg to chew states he had no relief with the nitroglycerin. Discussed ongoing cardiac monitoring to evaluate for dysrhythmia causing his lightheadedness and nausea. Administered Toradol 15 mg IV push for right-sided chest pain which did relieve his pain completely. I did recommend another troponin and possible observation admission for lightheadedness and nausea which he declines. He opted to leave AGAINST MEDICAL ADVICE paperwork signed and patient left the department with no incident. Vital signs had remained stable while he was being monitored here he was advised to follow-up with his primary care provider or return for new or worsening symptoms Medical Records Medical records reviewed: Yes I reviewed the patient's medical records. Lab Data Lab results reviewed: Yes I reviewed the patient's lab results. Lab results narrative: Laboratory Results - last 24 hr 10/09/22 18:56 Troponin I Cancelled Labs: Laboratory Tests Range/Units 10/09/22 10/09/22 10/09/22 17:34 17:34 18:56 WBC (4.4-10.8) 10^3/uL 6.57 RBC (4.36-5.78) 10^6/uL 4.95 Hgb (13.5-17.5) g/dL 15.3 Hct (40.0-50.0) % 44.7 MCV (80-95) fL 90 MCH (27.0-33.0) pg 30.9 MCHC (32.0-36.0) % 34.2 RDW (11.8-14.1) % 12.5 Plt Count (130-400) 10^3/uL 143 MPV (8.0-11.0) fL 8.5 Immature Gran % 0.3 Neutrophils % 41.0 Lymphocytes % 46.1 Monocytes % 9.3 Eosinophils % 2.7 Basophils % 0.6 Nucleated RBC % (0.0-0.3) % 0.0 Absolute Neutrophils (1.2-6.7) 10^3/uL 2.69 Absolute Lymphocytes (1.2-3.4) 10^3/uL 3.03 Absolute Monocytes (0.1-0.8) 10^3/uL 0.61 Absolute Eosinophils (0.0-0.7) 10^3/uL 0.18 Absolute Basophils (0.0-0.2) 10^3/uL 0.04 Sodium (136-145) mmol/L 139 Potassium (3.5-5.1) mmol/L 4.0 Chloride (98-107) mmol/L 106 Carbon Dioxide (21.0-32.0) mmol/L 27.8 Anion Gap (3-11) mmol/L 5.2 BUN (7-18) mg/dL 28 H Creatinine (0.70-1.30) mg/dL 1.2 Est GFR (CKD-EPI 2020) (mL/min/1.73m2) 61.13 Glucose (74-106) mg/dL 98 Calcium (8.5-10.1) mg/dL 8.7 Magnesium (1.8-2.4) mg/dL 1.9 Total Bilirubin (0.2-1.0) mg/dL 0.4 AST (15-37) U/L 17 ALT (16-63) U/L 27 Alkaline Phosphatase (46-116) U/L 85 Troponin I (<or=60) ng/L < 50 Cancelled NT-Pro-B Natriuret Pep (<300) pg/mL 791 H Total Protein (6.4-8.2) g/dL 7.2 Albumin (3.4-5.0) g/dL 3.7 Laboratory Results - last 24 hr 10/09/22 18:56 Troponin I Cancelled <Rajesh Chambers MD - Last Filed: 10/21/22 17:37> Note: I did not evaluate this patient. The patient was seen, evaluated, treated and dispositioned independently by RENEE Le. HPI <Nat Le NP - Last Filed: 10/10/22 20:20> General Mode of arrival: ambulatory . Date/Time Provider Initiated Documentation: 10/09/22 15:55 . Limitations to Documentation: no limitations . Information obtained by: patient . HPI Narrative: right sided chest pain, lightheadness. took nitro Related Data Home Medications Medication Instructions Recorded Confirmed nitroglycerin 0.3 mg sublingual 0.3 mg sublingual Q5M PRN 10/16/19 09/11/22 tablet (Nitrostat) aspirin 81 mg chewable tablet 81 mg PO DAILY #90 tabs 01/25/20 09/11/22 rosuvastatin 20 mg tablet 20 mg PO DAILY #90 tabs 01/25/20 09/11/22 bisoprolol fumarate 5 mg tablet 5 mg PO DAILY 01/26/20 09/11/22 melatonin 5 mg capsule 5 - 10 mg PO QHS PRN 06/07/20 09/11/22 desmopressin 0.1 mg tablet 0.2 mg PO DAILY #180 tabs 02/09/22 09/11/22 lorazepam 0.5 mg tablet 0.5 mg PO QHS PRN sleep #30 tabs 04/21/22 09/11/22 Previous Rx's Medication Instructions Recorded aspirin 81 mg chewable tablet 81 mg PO DAILY #90 tabs 01/25/20 rosuvastatin 20 mg tablet 20 mg PO DAILY #90 tabs 01/25/20 desmopressin 0.1 mg tablet 0.2 mg PO DAILY #180 tabs 02/09/22 lorazepam 0.5 mg tablet 0.5 mg PO QHS PRN sleep #30 tabs 04/21/22 Allergies Allergy/AdvReac Type Severity Reaction Status Date / Time bee venom protein (honey bee) AdvReac Severe swell up Unverified 10/14/22 08:22 like a baloon General Stated Complaint: Chest Pain TERRIE: 3 Review of Systems <Nat Le NP - Last Filed: 10/10/22 20:20> All systems reviewed & are unremarkable except as noted in HPI and below PFSH <Nat Le NP - Last Filed: 10/10/22 20:20> All Active Problems Sexual function problem (Acute) Hypercholesterolemia (Acute 08/08/08) Diabetes insipidus (Chronic) Benign prostatic hyperplasia with lower urinary tract symptoms (Acute) Alcohol abuse (Acute) 1-2 days a week will have a couple of martinis Insomnia (Acute) lorazepam every other night Neurogenic bladder (Chronic) self cath 4 x daily 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 [place] Surgical History Colonoscopy - IV Sedation (09/14/12) [facility] [place]; POLYP;DIVERTICULOSIS Family History Mother Cancer Depression Father Alcohol use disorder Sister Cancer Sister Cancer Depression Brother Alcohol use disorder Son No problems noted. Daughter No problems noted. Social History Smoking/Tobacco Use Status: Former Tobacco Use tobacco type: cigarettes Quit Date: 05/17/89 Smoking risk assessment performed?: Yes Alcohol Intake: current Alcohol Intake frequency: a few times a week Alcohol type: beer, wine and hard liquor Drug use: Rarely Substance use type: marijuana Household members: significant other Housing: house Do you need help understanding health information?: Often Pets and animals: Yes Pets and animals: cat(s) and dog(s) Sexually active: Yes Do you think of yourself as: straight/heterosexual Current gender identity: male What is your relationship status?: living with partner How often do you talk on the phone with friends or family?: twice per week How often do you get together with friends or relatives?: once per week How often do you attend latter-day or sikh services?: decline to answer Do you belong to any clubs or organized social groups?: decline to answer Panel score (0-1 are the most socially isolated patients): 2 What type of physical activity do you participate in: walking Duration: 45-60 minutes/day Frequency: 3-4 times per week Gnii/Faith: Cheondoism Special gini needs: No Seatbelt use: always Drive intox or ride w/intox chuck wagon driver: No Do you feel safe at home: Yes Do you feel safe in your relationship?: Yes Exam <Nat Le NP - Last Filed: 10/10/22 20:20> Const General: cooperative, healthy appearing, comfortable and no acute distress Nutritional Appearance: average body habitus Orientation: alert, awake and oriented x3 HENMT Head: normal to inspection, normocephalic and atraumatic Mouth: oral mucosae normal Chest Chest: normal inspection of the chest Resp Effort & Inspection: normal respiratory effort Auscultation: clear to auscultation bilaterally Cardio Rate: regular rate Rhythm: regular rhythm GI Inspection: normal to inspection Palpation: soft Skin General skin exam: no rashes or lesions noted Neuro General: patient alert, patient awake and patient oriented x3 Extrem General: normal to inspection and full ROM Course <Nat Le NP - Last Filed: 10/10/22 20:20> Vital Signs Vital signs: Vital Signs Temperature 36.8 C 10/09/22 16:12 Pulse 57 L 10/09/22 16:12 Respiratory Rate 16 10/09/22 16:12 Blood Pressure 130/74 10/09/22 16:12 Pulse Oximetry 98 10/09/22 16:12 Temperature 36.8 C 10/09/22 16:12 Temperature Source Temporal Artery Scan 10/09/22 16:12 Pulse 57 L 10/09/22 16:12 Respiratory Rate 15 10/09/22 17:37 Respiratory Effort Normal 10/09/22 17:37 Respiratory Depth Normal 10/09/22 17:37 Respiratory Pattern Normal 10/09/22 17:37 Blood Pressure 130/74 10/09/22 16:12 Blood Pressure Position Sitting 10/09/22 16:12 Pulse Oximetry 98 10/09/22 16:12 Oxygen Delivery Method Room Air 10/09/22 16:12 Oxygen Flow Rate 0 10/09/22 16:12 Pain Level 0 10/09/22 17:37 Lab/Test Results Lab/Test Results: Laboratory Tests Range/Units 10/09/22 10/09/22 17:34 17:34 WBC (4.4-10.8) 10^3/uL 6.57 RBC (4.36-5.78) 10^6/uL 4.95 Hgb (13.5-17.5) g/dL 15.3 Hct (40.0-50.0) % 44.7 MCV (80-95) fL 90 MCH (27.0-33.0) pg 30.9 MCHC (32.0-36.0) % 34.2 RDW (11.8-14.1) % 12.5 Plt Count (130-400) 10^3/uL 143 MPV (8.0-11.0) fL 8.5 Immature Gran % 0.3 Neutrophils % 41.0 Lymphocytes % 46.1 Monocytes % 9.3 Eosinophils % 2.7 Basophils % 0.6 Nucleated RBC % (0.0-0.3) % 0.0 Absolute Neutrophils (1.2-6.7) 10^3/uL 2.69 Absolute Lymphocytes (1.2-3.4) 10^3/uL 3.03 Absolute Monocytes (0.1-0.8) 10^3/uL 0.61 Absolute Eosinophils (0.0-0.7) 10^3/uL 0.18 Absolute Basophils (0.0-0.2) 10^3/uL 0.04 Sodium (136-145) mmol/L 139 Potassium (3.5-5.1) mmol/L 4.0 Chloride (98-107) mmol/L 106 Carbon Dioxide (21.0-32.0) mmol/L 27.8 Anion Gap (3-11) mmol/L 5.2 BUN (7-18) mg/dL 28 H Creatinine (0.70-1.30) mg/dL 1.2 Est GFR (CKD-EPI 2020) (mL/min/1.73m2) 61.13 Glucose (74-106) mg/dL 98 Calcium (8.5-10.1) mg/dL 8.7 Magnesium (1.8-2.4) mg/dL 1.9 Total Bilirubin (0.2-1.0) mg/dL 0.4 AST (15-37) U/L 17 ALT (16-63) U/L 27 Alkaline Phosphatase (46-116) U/L 85 Troponin I (<or=60) ng/L < 50 NT-Pro-B Natriuret Pep (<300) pg/mL 791 H Total Protein (6.4-8.2) g/dL 7.2 Albumin (3.4-5.0) g/dL 3.7
== END 2022-10-09 20:01 | disposition left against medical advice (07) ==
PROVIDERS: Emergency Provider Nurse Practitioner Acute Care; PCP Nurse Practitioner Family
DX: R07.9 Chest pain, unspecified (principal); R06.02 Shortness of breath; Z53.21 Procedure and treatment not carried out due to patient leaving prior to being seen by health care provider
CPT/HCPCS: 36415; 80053; 93005; 96374; 99284; 71046; 83735; 83880; 84484; 85025; 93010; J1885

== ENCOUNTER 2023-09-16 05:10 | Outpatient (CLI) | payer MEDICARE, SELFPAY ==
[2023-09-16 16:02] LABS: ALT 31 U/L (16-63); AST 27 U/L (15-37); Alkaline Phosphatase 71 U/L (46-116); Anion Gap 10.3 mmol/L (3-11); BUN 21 mg/dL (7-18); Bilirubin, Total 0.5 mg/dL (0.2-1.0); CO2 26.7 mmol/L (21.0-32.0); CREATININE 1.3 mg/dL (0.70-1.30); Calculated LDL 64 mg/dL (<100); Chloride 106 mmol/L (98-107); Cholesterol 137 mg/dL (<200); Estimated GFR 55.19 (mL/min/1.73m2); Glucose 88 mg/dL (74-106); HDL Cholesterol 54 mg/dL (40-60); Potassium 4.5 mmol/L (3.5-5.1); Sodium 143 mmol/L (136-145); Total Protein 7.3 g/dL (6.4-8.2); Triglyceride 99 mg/dL (<150)
== END 2023-09-16 05:11 | disposition home or self-care (01) ==
PROVIDERS: PCP Nurse Practitioner Family; Visit Provider Nurse Practitioner Family
DX: E78.00 Pure hypercholesterolemia, unspecified (principal)
CPT/HCPCS: 36415; 80053; 80061

== ENCOUNTER → 2023-09-17 12:53 | Outpatient (CLI) | payer MEDICARE, SELFPAY ==
--- NOTE | 2023-09-17 12:27 | DI.RAD_ITS ---
Exam(s) XR CHEST 2V PA LATERAL EXAM: XR CHEST 2V PA LATERAL CLINICAL HISTORY: persistent cough R05.9. TECHNIQUE: 2D digital imaging was performed. COMPARISON: CR,XR XR CHEST 2V PA LATERAL from 10/09/2022 FINDINGS: 2 views: Heart size is normal. The mediastinum is not widened. Lungs are clear. No infiltrates nor pleural effusions. IMPRESSION: No acute pulmonary findings. DATA REPOSITORY: RADIATION DOSE DELIVERED:
== END ==
PROVIDERS: PCP Nurse Practitioner Family; Visit Provider Nurse Practitioner Family
DX: R05.9 Cough, unspecified (principal)
CPT/HCPCS: 71046

== ENCOUNTER 2024-04-03 14:51 | Outpatient (REF) | payer MEDICARE, SELFPAY | END 2024-04-03 14:52 | disposition home or self-care (01) | LOC: LBN 14:51 | PROVIDERS: PCP Nurse Practitioner Family; Visit Provider Nurse Practitioner Family | DX: N39.0 Urinary tract infection, site not specified (principal); R30.0 Dysuria | CPT/HCPCS: 87077; 87086; 87186 ==

== ENCOUNTER 2024-06-08 21:17 | Outpatient (REF) | payer MEDICARE, SELFPAY ==
[2024-06-08 16:11] LABS: Bilirubin Negative (Negative); Blood Negative (Negative); Clarity Clear (Clear); Glucose Negative (Negative); Ketones Negative (Negative); Leukocyte Esterase Trace (Negative); Nitrite Positive (Negative); pH 5.5 (5-8)
[2024-06-08 16:30] LABS: Bacteria Few HPF (Negative); C & S Indicated? C&S Done As Ordered; Casts Negative LPF (Negative); Crystals Negative HPF (Negative); Epithelial Cells Few HPF (Negative); Mucus Negative (Negative); RBC 0-2 HPF (0-2)
--- OUTSIDE RECORDS SUMMARY | 2024-06-08 21:19 | XMS_ITS | Encounter Summary ---
Author Organization [facility] Address [address] [place] [address] Care Team Providers Care Cellophane Bath Mixer Name Role Phone ErichAlexis castro Primary Care Provider [phone] Reason for Visit * Reason Onset Date Comments Medications Refill 05/13/2020 med refills-o ut of medication Encounter Details Date Type Department Care Team (Late st Contact Info) Description 05/13/2020 Telephone [facility] [address] [place] [address] Danial Juares MD [address] [facility] [place] [address] Medications Refill (med refills-out of medication ) Social History Tobacco Use Types Packs/Day Years Used Date Smoking Tobacco: Former Smokeless Tobacco: Never Alcohol Use Standard Drinks/Week Comments Yes 0 (1 standard drink = 0.6 oz pur e alcohol) 3-4 x a week, 1-2 drinks PHQ-2 Answer Date Recorded PHQ-2 Score 0 12/18/2019 Interpersonal Safety Answer Date Record ed Physically Hurt Never 12/18/2019 Verbally Threaten Not on file 12/18/2019 Sex and Gender Information Value Date Recorded Sex Assigned at Not on file Legal Sex Male 17:28 EDT Gender Identity Male 10/13/2019 21:34 EDT Sexual Orientation Not on file documented as of this encounter Functional Status * Are you blind or do you have serious difficulty seeing, even when wearing glasses? Answer Date of Assessment Author Yes 10/13/2019 22:00 GRACIELAT Saurav Killian RN documented as of this encounter Ordered Prescriptions Prescription Sig Dispense Quantity Refills Last Filled Start Date End Date clopidogreL (PLAVIX) 75 mg tablet Take 1 Tab by mouth daily. 90 Tab 3 05/13/2020 07/14/2021 rosuvastatin (CRESTOR) 20 mg tablet Take 1 Tab by mouth daily. 90 Tab 3 05/13/2020 05/26/2021 bisoprolol (ZEBETA) 5 mg tablet Take 1 Tab by mouth daily. 90 Tab 3 05/13/2020 05/26/2021 documented in this encounter Miscellaneous Notes * Telephone Encounter - Hua Galvez RN - 05/13/2020 1205 EST Rx x 3 sent in as requested. UTD * Telephone Encounter - Linda eL - 05/13/2020 1107 EST Bisoprolol 5mg, rosuvastatin 20mg, clopidogrel 75mg. Send refills to [facility] in [facility].He is out of medication. documented in this encounter Plan of Treatment Not on file documented as of this encounter Visit Diagnoses Not on filedocumented in this encounter Discontinued Medications Medication Sig Discontinue Reason Start Date End Da te clopidogreL (PLAVIX) 75 mg tablet Take 1 Tab by mouth daily. Reorder 10/16/2019 05/13/2020 rosuvastatin (CRESTOR) 20 mg tablet Take 1 Tab by mouth daily. Reorder 10/16/2019 05/13/2020 bisoprolol (ZEBETA) 5 mg tablet Take 1 Tab by mouth daily for 90 days. Reorder 05/13/2020 05/13/2020 documented as of this encounter Care Teams Cellophane Bath Mixer Relationship Specialty Start Date End Date Alexis Jung DO [address] [place] [address] PCP - General 10/13/19 07/13/21 documented as of this encounter
--- OUTSIDE RECORDS SUMMARY | 2024-06-08 21:19 | XMS_ITS | Encounter Summary ---
Author Organization [facility] Address [address] [place] [address] Care Team Providers Care Paper Rewinder Name Role Phone Danial Juares MD Unavailable [phone] Mariana Mcnally INTERNET RESEARCHER Primary Care Provider [phone] Josefa Serna Primary Care Provider [phone] Zion Quinones DNP Primary Care Provider [phone] Reason for Visit * Reason Comments Medications Refill Encounter Details Date Type Department Care Team (Late st Contact Info) Description 06/14/2022 Refill [facility] [address] [place] [address] Danial Juares MD [address] [facility] [place] [address] Medications Refill Social History Tobacco Use Types Packs/Day Years [...] Yes 10/13/2019 22:00 GRACIELAT Saurav Killian RN * Because of a physical, mental, or emotional condition, does this person have difficulty doing errands alone such as visiting a doctor's office or shopping? Answer Date of Assessment Author No 07/14/2021 16:11 EST documented as of this encounter Mental Status * Because of a physical, mental, or emotional condition, does this person have serious difficulty concentrating, remembering, or making decisions? Answer Entry Date Author No 07/14/2021 16:11 EST documented in this encounter Ordered Prescriptions Prescription Sig Dispense Quantity Refills Last Filled Start Date End Date bisoprolol (ZEBETA) 5 mg tablet TAKE ONE TABLET BY MOUTH EVERY DAY 90 Tablet 3 06/15/2022 06/30/2023 rosuvastatin (CRESTOR) 20 mg tablet TAKE ONE TABLET BY MOUTH EVERY DAY 90 Tablet 3 06/15/2022 06/30/2023 documented in this encounter Plan of Treatment Not on file documented as of this encounter Visit Diagnoses Not on filedocumented in this encounter Discontinued Medications Medication Sig Discontinue Reason Start Date End Da te rosuvastatin (CRESTOR) 20 mg tablet TAKE ONE TABLET BY MOUTH EVERY DAY 06/08/2022 06/15/2022 bisoprolol (ZEBETA) 5 mg tablet TAKE ONE TABLET BY MOUTH EVERY DAY 06/08/2022 06/15/2022 documented as of this encounter Care Teams Paper Rewinder Relationship Specialty Start Date End Date Mariana Mcnally NP [address] [place] [address] [address] [place] [id number] PCP - General 07/15/21 07/07/22 Medical, [facility] [address] [place] [address] PCP - General 07/08/22 03/28/24 Zion Quinones DNP [address] [place] [id number] PCP - General Family Medicine - Primary Care 03/29/24 Danial Juarse MD [address] [place] [address] Cardiovascular Disease 06/30/21 documented as of this encounter
--- OUTSIDE RECORDS SUMMARY | 2024-06-08 21:19 | XMS_ITS | Encounter Summary ---
Author Organization [facility] Address [address] [place] [address] Care Team Providers Care Store Facility Technician Name Role Phone ErichAlexis castro Primary Care Provider [phone] Reason for Visit * Reason Onset Date Comments Update 12/14/2019 Encounter Details Date Type Department Care Team (Late st Contact Info) Description 12/14/2019 Telephone [facility] [address] [place], [place] [id number] Danial Juares MD [address] [facility] [place] [address] Update Social History Tobacco Use Types Packs/Day Years Used Date Smoking Tobacco: Former Smokeless Tobacco: Never Alcohol Use Standard Drinks/Week Comments Yes 0 (1 standard drink = 0.6 oz pur e alcohol) 3-4 x a week, 1-2 drinks Sex and Gender Information Value Date Recorded Sex Assigned at Not on file Legal Sex Male 17:28 EDT Gender Identity Male 10/13/2019 21:34 EDT Sexual Orientation Not on file documented as of this encounter Functional Status * Are you blind or do you have serious difficulty seeing, even when wearing glasses? Answer Date of Assessment Author Yes 10/13/2019 22:00 EDT Saurav Killian RN documented as of this encounter Ordered Prescriptions Prescription Sig Dispense Quantity Refills Last Filled Start Date End Date bisoprolol (ZEBETA) 5 mg tablet Take 0.5 Tabs by mouth daily. 15 Tab 12/14/2019 01/17/2020 documented in this encounter Miscellaneous Notes * Telephone Encounter - Hua Bhatia RN - 12/14/2019 1512 EDT Spoke with patient. He is willing to start bisoprolol 2.5 mg daily. Encouraged to call the clinic in 2 weeks with an update. Sent rx to [facility] in [facility], as requested. * Telephone Encounter - Danial Juares MD - 12/14/2019 1502 EDT Given h/o HI recommend BB. Let's try bisoprolol 2.5 mg daily. Re-assess in couple weeks. Target dose 5 mg dialy. * Telephone Encounter - Hua hBatia RN - 12/14/2019 1455 EDT EVRNA: 11/[address] Juares To hold metoprolol. May switch to bisoprolol. Will send to supervisor throwing department. * Telephone Encounter - Marilee Purcell - 12/14/2019 1426 EDT Pt called and left a message stating that he was supposed to call and give Dr. Juares an update from being off his beta gail for about two weeks. He would like him to know that after a couple days he felt much better and is a lot less tired. documented in this encounter Plan of Treatment Not on file documented as of this encounter Visit Diagnoses Not on filedocumented in this encounter Care Teams Store Facility Technician Relationship Specialty Start Date End Date Alexis Jung DO [address] [place] [address] PCP - General 10/13/19 07/13/21 documented as of this encounter
--- OUTSIDE RECORDS SUMMARY | 2024-06-08 21:19 | XMS_ITS | Clinical Summary ---
Author Organization [facility] Address [address] [place] [address] Care Team Providers Care Anesthesia Attending Name Role Phone Danial Juares MD Unavailable [phone] Zion Quinones DNP Primary Care Provider [phone] Allergies Active Allergy Reactions Criticality Noted Date Comments Bee Venom Protein (Honey Bee) Other (See Comments) 09/06/2020 Metoprolol Other (See Comments) 06/05/2020 Fatigue Medications desmopressin (DDAVP) 0.1 mg tablet Take 2 Tablets by mouth daily. Active LORazepam (ATIVAN) 1 mg tablet Take 1 Tablet by mouth every 4 hours as needed for Anxiety. Active aspirin 81 mg EC tablet Take 1 Tab by mouth daily. 90 Tab 3 10/16/2019 Active nitroGLYCERIN (NITROSTAT) 0.[address] 1 Tablet under the tongue every 5 minutes as needed for Chest Pain. Call 911 if needing to take 3 tablets. 25 Tablet 5 07/27/2022 Active bisoprolol (ZEBETA) 5 mg tablet TAKE ONE TABLET BY MOUTH EVERY DAY 90 Tablet 3 06/30/2023 Active rosuvastatin (CRESTOR) 20 mg tablet TAKE ONE TABLET BY MOUTH EVERY DAY 90 Tablet 3 06/30/2023 Active Active Problems Patient Care Coordination No te Formatting of this note migh t be different from the original. 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 Cardiology Clinic [address] [place] [address] Danial Juares MD CAD S/P percutaneous coronary angioplasty (Primary Dx); Nonrheumatic aortic valve insufficiency from Last 3 Months Surgical History Surgery Date Site/Laterality Comments TIBIA / FIBIA LENGTHENING Bilateral both LE done as child KIDNEY CYST REMOVAL CORONARY ANGIOPLASTY WITH ST ENT PLACEMENT 10/14/2019 LM: nl. LAD: 80%. LCX: 100%. RCA: 80%. 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 NSTEMI (non-ST elevated myocardial infarction) ( [facility]) 10/13/2019 Covid-19 02/2022 Social History Tobacco Use Types Packs/Day Years Used Date Smoking Tobacco: Former Smokeless Tobacco: Never Tobacco Cessation:Counseling Given: Not Answered Alcohol Use Standard Drinks/Week Comments Yes 0 [...] 21:34 EDT Sexual Orientation Not on file Obstetrics History Last Filed Vital Signs Vital Sign Reading Time Taken Comments Blood Pressure 140/84 03/29/2024 1457 EST Pulse 55 03/29/2024 1457 EST Temperature 36.1 ??C (97 ??F) 10/15/2019 0813 EDT Respiratory Rate 16 11/28/2019 1419 EDT Oxygen Saturation 98% 03/29/2024 1457 EST Inhaled Oxygen Concentration - - Weight 90.7 kg (200 lb) 03/29/2024 1457 EST Height 170.2 cm (5' 7.01) 03/29/2024 1457 EST Body Mass Index 31.32 03/29/2024 1457 EST Plan of Treatment Health Maintenance Due Date Last Done Comments RSV Immunization ( o r 60+ Years) (1 - 1-dose 75+ series) 2017 COVID-19 Vaccine ( - season) 2024 Fall Risk Screening 03/29/2025 03/29/2024 Medical Devices Implanted Type Area Fiscal Specialist Device Identifier Shelf Expiration Date Model / Serial / Lot Stent Coronary Everomimus Eluting Pt Cr Otw [id number] Promus Elite [id number] - [id number] Implanted:Qty : 1 on 10/14/2019 by Christiano Montgomery MD at [facility] Drug Eluting Stent Left: Chest [employer] [id number] 10/09/2020 [id number] / / [id number] Stent Coronary Everomimus Eluting Pt Cr Otw 3.5x28mm Promus Elite [id number] - [id number] Implanted:Qty : 1 on 10/14/2019 by Christiano Montgomery MD at [facility] Drug Eluting Stent Left: Chest [employer] [id number] 12/22/2020 [id number] / / [id number] Stent Drug Eluting 4.000 X 16mm Promus Elite Mr - [id number] Implanted:Qty : 1 on 10/14/2019 by Christiano Montgomery MD at [facility] Drug Eluting Stent Left: Chest [employer] [id number] 09/11/2020 [id number] / / [id number] Insurance HEALTHCARE Member Subscriber Plan / Payer (Ef fective 2019-Present) Name:William Cadena Relation to Subscriber:Self Name:William Cadena Payer ID:[id number] (NAIC) Group ID:Not on file Type:Video Passports GL Address: [address] [id number] [place] [address] HEALTHCARE [id number] MEDICARE ACO [place] Advance Directives For more information, please contact: [phone] * Full Code (Latest Code Status on File) Date Activated Date Inactivated Comments 10/13/2019 22:50 10/15/2019 12:40 Question Answer Comments Reason for decision includes: Full code consistent with overall plan of care Who participated in the discussion? Not Discusse d Care Teams Anesthesia Attending Relationship Specialty Start Date End Date Zion Quinones, [facility] [address] [place] [address] PCP - General Family Medicine - Primary Care 03/29/24 Danial Juares MD [address] [place] [address] [address] [place] [address] Cardiovascular Disease 06/30/21
--- OUTSIDE RECORDS SUMMARY | 2024-06-08 21:19 | XMS_ITS | Encounter Summary ---
Author Organization [facility] Address [address] [place] [address] Care Team Providers Care Cooking Instructor Name Role Phone Danial Juares MD Unavailable [phone] Medical, Josefa Primary Care Provider Reason for Visit * Reason Onset Date Comments Medications Refill 07/27/2022 Encounter Details Date Type Department Care Team (Late st Contact Info) Description 07/27/2022 Telephone [facility] [address] [place] [address] Danial Juares MD [address] [place] [address] [address] [place] [address] Medications Refill Social History Tobacco [...] Yes 10/13/2019 22:00 EDT Saurav Killian RN * Because of a [...] Refills Last Filled Start Date End Date nitroGLYCERIN (NITROSTAT) 0.[address] 1 Tablet under the tongue every 5 minutes as needed for Chest Pain. Call 911 if needing to take 3 tablets. 25 Tablet 5 07/27/2022 documented in this encounter Miscellaneous Notes * Telephone Encounter - Tierney Grey RN - 07/27/2022 1507 EDT Escript sent to pharmacy as requested. * Telephone Encounter - Sol Garcia MA - 07/27/2022 1504 EDT Patient called in needing a new prescription for Nitro called into [facility] in [facility]. documented in this encounter Plan of Treatment Not on file documented as of this encounter Visit Diagnoses Not on filedocumented in this encounter Discontinued Medications Medication Sig Discontinue Reason Start Date End Da te nitroGLYCERIN (NITROSTAT) 0.[address] 1 Tablet under the tongue every 5 minutes as needed for Chest Pain. Call 911 if needing to take 3 tablets. Reorder 01/14/2021 07/27/2022 documented as of this encounter Care Teams Cooking Instructor Relationship Specialty Start Date End Date Medical, Josefa [address] [place], [place] [id number] PCP - General 07/08/22 03/28/24 Danial Juares MD [address] [place] [address] [address] [place] [phone] Cardiovascular Disease 06/30/21 documented as of this encounter
--- OUTSIDE RECORDS SUMMARY | 2024-06-08 21:19 | XMS_ITS | Encounter Summary ---
Author Organization [facility] Address [address] [place] [address] Care Team Providers Care Drill Sergeant Name Role Phone Danial Juares MD Unavailable [phone] Mariana Mcnally PROSPECT MANAGER Primary Care Provider [phone] Josefa Serna Primary Care Provider [phone] Zion Quinones DNP Primary Care Provider [phone] Reason for Visit * Reason Comments Medications Refill Encounter Details Date Type Department Care Team (Late st Contact Info) Description 06/08/2022 Refill [facility] [address] [place] [address] Danial Juares MD [address] [facility] [place] [address] Medications Refill Social History Tobacco [...] BY MOUTH EVERY DAY 90 Tablet 3 06/08/2022 06/15/2022 rosuvastatin (CRESTOR) 20 mg tablet TAKE ONE TABLET BY MOUTH EVERY DAY 90 Tablet 3 06/08/2022 06/15/2022 documented in this encounter Plan of Treatment Not on file documented as of this encounter Visit Diagnoses Not on filedocumented in this encounter Discontinued Medications Medication Sig Discontinue Reason Start Date End Da te rosuvastatin (CRESTOR) 20 mg tablet TAKE ONE TABLET BY MOUTH EVERY DAY 05/26/2021 06/08/2022 bisoprolol (ZEBETA) 5 mg tablet TAKE ONE TABLET BY MOUTH EVERY DAY 05/26/2021 06/08/2022 documented as of this encounter Care Teams Drill Sergeant Relationship Specialty Start Date End Date Mariana Mcnally NP [address] [place] [address] [address] [place] [phone] PCP - General 07/15/21 07/07/22 Medical, [facility] [address] [place] [id number] PCP - General 07/08/22 03/28/24 Zion Quinones DNP [address] [place] [id number] PCP - General Family Medicine - Primary Care 03/29/24 Danial Juares MD [address] [place] [address] Cardiovascular Disease 06/30/21 documented as of this encounter
--- OUTSIDE RECORDS SUMMARY | 2024-06-08 21:19 | XMS_ITS | Encounter Summary ---
Author Organization [facility] Address [address] [place] [address] Care Team Providers Care Dry Wall Nailer Name Role Phone Danial Juares MD Unavailable [phone] Mariana Mcnally NP Primary Care Provider [phone] Reason for Referral * Cardiology (Routine/Next Available) - Specialty Report Received Specialty Diagnoses / Procedures [facility] Referred To Contact Diagnoses Nonrheumatic aortic valve insufficiency Procedures TRANSTHORACIC ECHO (TTE) COMPLETE ME ECHO HEART XTHORACIC,COMPLETE W DOPPLER Danial Juares MD Phone: tel: fax: [facility] Referral ID Status Reason Start Date Expiration Date V isits Requested Visits Authorized [id number] Specialty Report Received 07/14/2021 1 1 Reason for Visit * Cardiology (Routine/Next Available) - Specialty Report Received Specialty Diagnoses / Procedures [facility] Referred To Contact Diagnoses Nonrheumatic aortic valve insufficiency Procedures TRANSTHORACIC ECHO (TTE) COMPLETE ME ECHO HEART XTHORACIC,COMPLETE W DOPPLER Danial Juares MD Phone: tel: fax: [facility] Referral ID Status Reason Start Date Expiration Date V isits Requested Visits Authorized [id number] Specialty Report Received 07/14/2021 1 1 Encounter Details Date Type Department Care Team (Latest Contact Info) Description 06/16/2022 15:00 EST - 06/16/2022 23:59 EST Hospital Encounter [facility] - [facility] Non-Invasive Cardiology [address] [place] [address] Nonrheumatic aortic valve insufficiency Discharge Disposition: Home or Self Care Social History Tobacco Use Types Packs/Day Years [...] on file documented as of this encounter Last Filed Vital Signs Vital Sign Reading Time Taken Comments Blood Pressure 158/86 06/16/2022 1534 EST Pulse - - Temperature - - Respiratory Rate - - Oxygen Saturation - - Inhaled Oxygen Concentration - - Weight - - Height - - Body Mass Index - - documented in this encounter Functional Status * Are you [...] 07/14/2021 16:11 EST documented in this encounter Medications at Time of Discharge aspirin 81 mg EC tablet Take 1 Tab by mouth daily. 90 Tab 3 10/16/2019 desmopressin (DDAVP) 0.1 mg tablet Take 2 Tablets by mouth daily. LORazepam (ATIVAN) 1 mg tablet Take 1 Tablet by mouth every 4 hours as needed for Anxiety. bisoprolol (ZEBETA) 5 mg tablet TAKE ONE TABLET BY MOUTH EVERY DAY 90 Tablet 3 06/15/2022 06/30/2023 nitroGLYCERIN (NITROSTAT) 0.[address] 1 Tablet under the tongue every 5 minutes as needed for Chest Pain. Call 911 if needing to take 3 tablets. 25 Tablet 5 01/14/2021 07/27/2022 rosuvastatin (CRESTOR) 20 mg tablet TAKE ONE TABLET BY MOUTH EVERY DAY 90 Tablet 3 06/15/2022 06/30/2023 documented as of this encounter Discharge Disposition Disposition Code Departure Means Destination Home or Self Care documented in this encounter Plan of Treatment Not on file documented as of this encounter Procedures Procedure Name Priority Date/Time Associated Diagnosis Comments TRANSTHORACIC ECHO (TTE) COMPLETE Routine 06/16/2022 15:34 EST Nonrheumatic aortic valve insufficiency documented in this encounter Results * TRANSTHORACIC ECHO (TTE) COMPLETE W/DOPPLER W/CF NO CONTRAST (06/16/2022 15:34 EST) LA Atrial Length A2C 5.6 cm MERGE CARDI O LA Atrial Area A4C 20.6 cm2 MERGE C[facility]IO LA ID/bsa, A-P 1.9 cm/m2 MER[facility] LV ID, ED, PLAX 4.5 3.5 - 6.0 cm MERGE C[facility]IO LVIDD BY MMODE 4.5 cm MERGE C[facility]IO LV ID, ES, PLAX 3.2 2.1 - 4.0 cm MER[facility]IO LA ID, A-P, ES 3.9 cm [facility] LV PW thickness, ED, PLAX 1.2 0.6 - 1.1 cm [facility]IO Aortic root ID 3.0 cm MER[facility]IO LV ejection fraction, 1-p A4C 60 % MER[facility]IO LV e', lateral 0.06 m/s [facility]IO Mitral deceleration time 408 ms [facility]IO Aortic valve peak velocity, S 1.3 m/s [facility]IO Aortic peak gradient, S 7 mmHg [facility]IO Mitral E-wave peak velocity 0.7 m/s MERGE [facility]IO Mitral A-wave peak velocity 1.0 m/s MERGE C[facility]IO LV Systolic Volume Index 13.0 mL/m2 MER[facility]IO LV Diastolic Volume Index 31.0 mL/m2 MERGE C[facility]IO LA Atrial Length A4C 6.2 cm MERGE CARDI O EF 59 % MER[facility]IO LA volume, ES, BP 46.0 ml MERGE C[facility]IO LA volume/bsa, ES, A4C 28.0 ml/m2 MER[facility]IO LA volumes, ES, A4C 56.0 ml MERGE C[facility]IO LA volume/bsa, ES, BP 23.0 ml/m2 MER[facility] C[facility]IO LV Systolic Volume 26 mL [facility]IO LV Diastolic Volume 63 mL [facility]IO Interventricular Septum to Posterior Wall Thickness Ratio 1 [facility]IO IVS thickness, ED, PLAX 1.2 cm MERGE [facility]IO LV e', medial 0.06 m/s MER[facility]IO LV e', average 0.06 m/s MERGE C[facility]IO Ascending aorta ID, a-p 2.6 cm MERGE C[facility]IO LA Atrial Area A2C 20.6 cm2 MERGE C[facility]IO LA/aortic root ratio 1.3 MERGE CARDI O LV end diastolic volume 1-p A2C 56 ml MERGE C[facility]IO LV ejection fraction, 1-p A2C 60 % MERGE C[facility]IO LV E/e', lateral 11.0 MERGE C[facility]IO LV E/e', medial 12.0 MERGE C[facility]IO LV E/e', average 12 MER[facility] C[facility]IO LV end-diastolic volume, 1-p A4C 69 ml MERGE C[facility]IO Mitral E/A ratio, peak 0.70 MER[facility]IO TAPSE 2.70 cm MERGE C[facility]IO Anatomical Region Laterality Modality Ultrasound Narrative 06/18/2022 9:31 EST ?Left??Ventricle: Left ventricular systolic function was normal with an ejection fraction of 55-60%. Left ventricular diastolic function cannot be determined based on the findings of the study. ?Right??Ventricle: The right ventricular cavity was normal in size. Right ventricular systolic function was normal. ?Aortic??Valve: There was mild aortic valve regurgitation. Compared to echo dated 10/14/2019, no significant change Left Ventricle The left ventricular cavity was normal in size. Left ventricular systolic function was normal with an ejection fraction of 55-60%. Left ventricular diastolic function cannot be determined based on the findings of the study. There was mild hypertrophy of the left ventricle. Left ventricular wall motion was normal; there were no regional wall motion abnormalities. Right Ventricle The right ventricular cavity was normal in size. Right ventricular systolic function was normal. Right ventricular wall thickness was normal. Left Atrium The left atrium was normal in size. Right Atrium The right atrium was normal in size. IVC/SVC The inferior vena cava was normal in size. The inferior vena cava demonstrated a diameter of <=21 mm and collapses >50%; therefore, the right atrial pressure is estimated at 0-5 mmHg. Mitral Valve Mitral valve structure was normal. There was trace mitral regurgitation. There was no significant mitral valve stenosis. Tricuspid Valve Tricuspid valve structure was normal. There was no tricuspid valve regurgitation. There was no tricuspid valve stenosis. Aortic Valve The aortic valve was not well visualized. The aortic valve structure was trileaflet. The aortic leaflets were not thickened and mildly calcified. There was no aortic valve stenosis. There was mild aortic valve regurgitation. AV Peak Gradient: 7mmHg. Pulmonic Valve There was no pulmonic valve regurgitation. There was no pulmonic valve stenosis. Ascending Aorta The aortic root was normal in size. The ascending aorta was normal in size. Pericardium There was no pericardial effusion. Pulmonic Artery Unable to assess PA pressure. Study Details Study status: Routine. Transthoracic echocardiography. M-Mode, complete 2D, complete spectral Doppler, and color Doppler.Scanning was performed from the apical, parasternal, subcostal and suprasternal acoustic windows. Overall the study quality was suboptimal. Images were obtained using cardiac ultrasound machine [id number]. us Danial Juares MD CARDIAC ECHO ORDERABLES Final Result documented in this encounter Visit Diagnoses Diagnosis Nonrheumatic aortic valve insufficiency Aortic valve disorders documented in this encounter Care Teams Dry Wall Nailer Relationship Specialty Start Date End Date Mariana Mcnally NP [address] [place] [address] [address] [place] [id number] PCP - General 07/15/21 07/07/22 Danial Juares MD [address] [place] [address] [place] [id number] Cardiovascular Disease 06/30/21 documented as of this encounter
--- OUTSIDE RECORDS SUMMARY | 2024-06-08 21:19 | XMS_ITS | Encounter Summary ---
Author Organization [facility] Address [address] [place] [address] Care Team Providers Care Vice President Of Instruction Name Role Phone Danial Juares MD Unavailable [phone] Reason for Referral * Cardiology (Routine/Next Available) - Specialty Report Received Specialty Diagnoses / Procedures Referred By Contsteven t Referred To Contact Diagnoses Nonrheumatic aortic valve insufficiency Procedures TRANSTHORACIC ECHO (TTE) COMPLETE OR ECHO HEART XTHORACIC,COMPLETE W DOPPLER Danial Juares MD Phone: tel: fax: [facility] Referral ID Status Reason Start Date Expiration Date V isits Requested Visits Authorized [id number] Specialty Report Received 07/14/2021 1 1 Reason for Visit * Reason Comments Follow-up Coronary Artery Disease Encounter Details Date Type Department Care Team (Late st Contact Info) Description 07/14/2021 15:45 EST Office Visit [facility] [address] [place] [address] Danial Juares MD [address] [facility] [place] [address] S/P coronary artery stent placement (Primary Dx); Nonrheumatic aortic valve insufficiency; Atherosclerosis of [place] coronary artery of [place] heart without angina pectoris Social History Tobacco Use Types Packs/Day Years [...] Sign Reading Time Taken Comments Blood Pressure 130/78 07/14/2021 1608 EST Pulse 62 07/14/2021 1608 EST Temperature - - Respiratory Rate - - Oxygen Saturation 97% 07/14/2021 1608 EST Inhaled Oxygen Concentration - - Weight 90.7 kg (200 lb) 07/14/2021 1608 EST Height 170.2 cm (5' 7) 07/14/2021 1608 EST Body Mass Index 31.32 07/14/2021 1608 EST documented in this encounter Functional Status * Are you blind or do you have serious difficulty seeing, even when wearing glasses? Answer Date of Assessment Author Yes 10/13/2019 22:00 Saurav Araya RN * Because of a physical, mental, [...] 07/14/2021 16:11 EST documented in this encounter Progress Notes * Danial Juares MD - 07/14/2021 1545 EST [facility] CARDIOLOGY FOLLOW-UP Date of Service: 07/14/2021 Reason for Visit: S/P coronary artery stent placement [Z95.5] SUBJECTIVE William Cadena, 1940 81 y.o. male patient with diabetes insipidus and NSTEMI s/p LAD, LCX and RCA PCI 09/2019. William Cadena is feeling well. He denies any cardiac s/s. He does not have an exercise routine. He does not feel limited from a cardiopulmonary standpoint. He reports occasional mild ankle edema which resolves spontaneously. He has cut back on alcohol: a drink or two every few days. Patient denies CP, SOB, PND, palpitations, syncope, bleeding, GI symptoms. Current Outpatient Medications Medication ??? aspirin 81 mg EC tablet ??? bisoprolol (ZEBETA) 5 mg tablet ??? desmopressin (DDAVP) 0.1 mg tablet ??? LORazepam (ATIVAN) 1 mg tablet ??? nitroGLYCERIN (NITROSTAT) 0.3 mg SL tablet ??? rosuvastatin (CRESTOR) 20 mg tablet No current facility-administered medications for this visit. ALLERGIES: Bee venom protein (honey bee) and Metoprolol FAMILY HX: No premature CAD SOCIAL HX: Nonsmoker, occasional alcohol, more in the past ROS: Performed; pertinent positives and negative as mentioned above OBJECTIVE PHYSICAL EXAM Blood pressure 130/78, pulse 62, height 170.2 cm (67), weight 90.7 kg (200 lb), SpO2 97 %. GENERAL: Pleasant, no acute distress. HEENT: Anicteric. NECK: Supple, normal jugular venous pressure CHEST: Nontender. LUNGS: Clear to auscultation bilaterally, no rhonchi rales or wheezes. HEART: Regular rate and rhythm, normal S1-S2, no murmurs. EXTREM: No cyanosis or edema, equal pulses. SKIN: Warm and dry, no rashes. NEURO: Alert and oriented x3, grossly intact DIAGNOSTIC DATA Available records including laboratory and cardiac studies reviewed; pertinent findings are as follows. Lab Results Component Value Date CREATININE 0.94 10/15/2019 BUN 25 10/13/2019 NA 135 (L) 10/15/2019 CL 105 10/15/2019 K 4.2 10/15/2019 MG 2.0 10/13/2019 Lab Results Component Value Date NTBNP 1,470 (H) 10/13/2019 TROPONINI 15.300 (H) 10/15/2019 HGB 14.4 10/15/2019 Lab Results Component Value Date CHOL 182 10/13/2019 HDL 36 10/13/2019 LDLBASE 122 10/13/2019 TRIG 119 10/13/2019 Lab Results Component Value Date HGBA1C 5.2 10/13/2019 Echocardiogram September 2019: EF 55-60%. Normal RV. Mild MR. 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 Normal aorta. ASSESSMENT & PLAN 1. CAD, now s/p PCI for NSTEMI 09/2019 No angina or heart failure. Normotensive. Reasonable baseline lipid profile, none up to date. - continue ASA, statin and beta gail - lipid profile w/ next lab draw (PCP/[facility]) 2. 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 I did not hear any AI today. - echo in 1year Follow-up 1 year w/ echo same day Danial Juares MD, PhD Other Orders Placed This Visit Procedures ??? TRANSTHORACIC ECHO (TTE) COMPLETE Medications Discontinued During This Visit Medication Reason ??? clopidogreL (PLAVIX) 75 mg tablet Therapy completed documented in this encounter Plan of Treatment Not on file documented as of this encounter Results * TRANSTHORACIC ECHO (TTE) [...] Images were obtained using cardiac ultrasound machine [employer] Organization[employer]-01. 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 Therapy completed 05/13/2020 07/14/2021 documented as of this encounter Care Teams Vice President Of Instruction Relationship Specialty Start Date End Date Danial Juares MD [address] [place] [address] [address] [place] [address] Cardiovascular Disease 06/30/21 documented as of this encounter
--- OUTSIDE RECORDS SUMMARY | 2024-06-08 21:19 | XMS_ITS | Encounter Summary ---
Author Organization [facility] Address [address] [place] [address] Care Team Providers Care Motor Route Carrier Name Role Phone Alexis Jung DO Primary Care Provider [phone] Danial Juares MD Unavailable [phone] Mariana Mcnally CLINICAL DATA MANAGEMENT DIRECTOR Primary Care Provider Josefa Serna Primary Care Provider [phone] Zion Quinones DNP Primary Care Provider [phone] Encounter Details Date Type Department Care Team (Late st Contact Info) Description 10/16/2019 Lab Requisition [facility] Pathology & Laboratory Medicine - [facility] [address] [place], [place] [id number] Outr Resulting Lab, Provider Social History Tobacco Use Types Packs/Day Years [...] 21:34 EDT Sexual Orientation Not on file COVID-19 Exposure Response Date Recorded In the last month, have you been in contact with someone who was confirmed or suspected to have Coronavirus / COVID-19? No / Unsure 10/13/2019 20:41 EDT documented as of this encounter Functional Status * Are you blind or do you have serious difficulty seeing, even when wearing glasses? Answer Date of Assessment Author Yes 10/13/2019 22:00 EDT Saurav Killian RN documented as of this encounter Plan of Treatment Not on file documented as of this encounter Procedures Procedure Name Priority Date/Time Associated Diagnosis Comments ZZCOVID-19 TEST [facility] PCR Today 10/16/2019 21:10 EDT COVID-19 TESTING Routine 10/16/2019 21:1 0 EDT documented in this encounter Results * COVID-19 TEST [facility] PCR (10/16/2019 21:10 EDT) Swab ENTIRE NASOPHARYNX / Unknown 10/16/2019 21:10 EDT 10/17/2019 8:54 EDT us Provider Outr Resulting Lab MICROBIOLOGY - GENER AL ORDERABLES Final Result Performing Organization Address City/State/[facility] Co de Phone Number [facility] [address] [place] [address] * COVID-19 TESTING (10/16/2019 21:10 EDT) COVID-19 rt-PCR Result Negative Negative 10/17/2019 13:06 EDT [facility] Comment: This test has not been FDA cleared or approved. This test has been authorized by FDA under an EUA for use by authorized laboratories. This test has been authorized only for detection of nucleic acid from 2019-nCoV, not for any other viruses or pathogens. This test is only authorized for the duration of the declaration that circumstances exist justifying the authorization of emergency use of in vitro diagnostic tests for detection and/or diagnosis of 2019-nCoV under section 564(b)(1) of Act, 21 U.S.C ?? 360bbb-3(b) (1), unless the authorization is terminated or revoked sooner. Negative results do not preclude 2019-nCoV infection and should not be used as the sole basis for treatment or other patient management decisions. Negative results must be combined with clinical observations, patient history, and epidemiological information. Performed on the [employer] instrument Performing Lab [employer] [facility] 10/17/2019 13:06 EDT [facility] Swab ENTIRE NASOPHARYNX / Unknown 10/16/2019 21:10 EDT 10/17/2019 8:54 EDT us Provider Outr Resulting Lab MICROBIOLOGY - GENER AL ORDERABLES Final Result [facility] [address] [place] [address] documented in this encounter Visit Diagnoses Not on filedocumented in this encounter Care Teams Motor Route Carrier Relationship Specialty Start Date End Date Alexis Jung, [address] [place], [place] [id number] PCP - General 10/13/19 07/13/21 Mariana Mcnally, CLINICAL DATA MANAGEMENT DIRECTOR [address] [place] [phone] PCP - General 07/15/21 07/07/[address] [id number] PCP - General 07/08/22 03/28/24 Zion Quinones, DNP [employer] [address] [place], [place] [id number] PCP - General Family Medicine - Primary Care 03/29/24 Danial Juares MD [address] [place] [address] [place] [address] Cardiovascular Disease 06/30/21 documented as of this encounter
--- OUTSIDE RECORDS SUMMARY | 2024-06-08 21:19 | XMS_ITS | Encounter Summary ---
Author Organization [facility] Address [address] [place] [address] Care Team Providers Care Pin Machine Operator Name Role Phone ErichAlexis castro Primary Care Provider [phone] Reason for Visit * Reason Onset Date Comments Other 01/14/2021 sharp pain in ri ght breast Encounter Details Date Type Department Care Team (Late st Contact Info) Description 01/14/2021 Telephone [facility] [address] [place] [address] Carline Galvez RN Other (sharp pain in right breast) Social History Tobacco Use Types Packs/Day Years [...] take 3 tablets. 25 Tablet 5 01/14/2021 3 documented in this encounter Miscellaneous Notes * Telephone Encounter - Carline Galvez RN - 01/14/2021 1055 EDT Patient calls to discuss sxs: * Has had 3 episodes in past 3 days of sudden, sharp pain in right breast (under his right nipple) that are like a jolt and last for only 1 second and go away * Not associated with exertion. No diaphoresis, sob, dizziness. * Had an episode during the night that lasted for approx 1 minute. Took an sl NTG that did not tingle or burn under tongue, but discomfort went away. The discomfort during the night was in the same spot, under right nipple. * Not anything like when he had his NSTEMI/PCI in 09/2019, per pt. Assessment: * Sharp jolt of right sided breast pain is not indicative of cardiac pain * NTG that did not tingle/burn under his tongue is not likely to have had any effect on thediscomfort going away and sounds incidental * Patient should have refill of his NTG rx and f/u with PCP for right sided chest/breast wall pain Plan: * Patient reassured that what he is describing is not indicative of being of cardiac origin * F/U with PCP prn for recurrent right sided chest wall pain * Reviewed NTG education. Made pt aware of earlier expiration than date listed on bottle, that heataffects NTG making it lose effectiveness, that bottle should be replaced within 30 days if opened, and every 6 months if unopened. * New NTG rx sent in to pharmacy specified * Pt to call office for any concerns or new sxs Patient verbalizes understanding of instructions/plan. CARLINE GALVEZ RN [facility] Cardiology Clinic documented in this encounter Plan of Treatment Not on file documented as of this encounter Visit Diagnoses Not on filedocumented in this encounter Discontinued Medications Medication Sig Discontinue Reason Start Date End Da te nitroGLYCERIN (NITROSTAT) 0.[address] 1 Tab under the tongue every 5 minutes as needed for Chest Pain. Reorder 10/15/2019 01/14/2021 documented as of this encounter Care Teams Pin Machine Operator Relationship Specialty Start Date End Date Alexis Jung DO [address] [place] [address] PCP - General 10/13/19 07/13/21 documented as of this encounter
--- OUTSIDE RECORDS SUMMARY | 2024-06-08 21:19 | XMS_ITS | Encounter Summary ---
Author Organization [facility] Address [address] [place] [address] Care Team Providers Care Telephone Directory Distributor Driver Name Role Phone Danial Juares MD Unavailable [phone] Medical, Josefa Primary Care Provider [phone] Reason for Visit * Reason Comments Medications Refill Encounter Details Date Type Department Care Team (Late st Contact Info) Description 06/30/2023 Refill [facility] [address] [place] [address] Danial Juares MD [address] [facility] [place] [address] Medications Refill Social History Tobacco [...] Refills Last Filled Start Date End Date rosuvastatin (CRESTOR) 20 mg tablet TAKE ONE TABLET BY MOUTH EVERY DAY 90 Tablet 3 06/30/2023 bisoprolol (ZEBETA) 5 mg tablet TAKE ONE TABLET BY MOUTH EVERY DAY 90 Tablet 3 06/30/2023 documented in this encounter Plan of Treatment Not on file documented as of this encounter Visit Diagnoses Not on filedocumented in this encounter Discontinued Medications Medication Sig Discontinue Reason Start Date End Da te rosuvastatin (CRESTOR) 20 mg tablet TAKE ONE TABLET BY MOUTH EVERY DAY 06/15/2022 06/30/2023 bisoprolol (ZEBETA) 5 mg tablet TAKE ONE TABLET BY MOUTH EVERY DAY 06/15/2022 06/30/2023 documented as of this encounter Care Teams Telephone Directory Distributor Driver Relationship Specialty Start Date End Date Medical, Corner [address] [place] [address] PCP - General 07/08/22 03/28/24 Danial Juares MD [address] [place] [address] [address] [place] [address] Cardiovascular Disease 06/30/21 documented as of this encounter
--- OUTSIDE RECORDS SUMMARY | 2024-06-08 21:19 | XMS_ITS | Encounter Summary ---
Author Organization [facility] Address [address] [place] [address] Care Team Providers Care Printing Mechanist Name Role Phone Danial Juares MD Unavailable [phone] Mariana Mcnally NP Primary Care Provider [phone] Reason for Visit * Reason Onset Date Comments Other 10/06/2021 Encounter Details Date Type Department Care Team (Late st Contact Info) Description 10/06/2021 Telephone [facility] [address] [place] [address] Danial Juares MD [address] [place] [address] [address] Other Social History Tobacco Use Types Packs/Day Years [...] Assessment Author Yes 10/13/2019 22:00 EDT Saurav Killina RN * Because of a physical, mental, [...] 07/14/2021 16:11 EST documented in this encounter Miscellaneous Notes * Telephone Encounter - Tierney Grey RN - 10/06/2021 1211 EDT Spoke with patient and reported that would like him to monitor symptoms. If at any time again he develops chest pain and no relief from nitro he is to call 911. He agrees and will report changes or concerns to the office or be evaluated in ER as discussed * Telephone Encounter - Danial Juares MD - 10/06/2021 1207 EDT Monitor for now. * Telephone Encounter - Tierney Grey RN - 10/06/2021 1147 EDT Spoke with patient, he states he woke in the night with chest pain. He states the pain was localized around his heart and did feel like the chest pain he had last time he had a heart attack, bu not as severe. He took a nitro and went back to sleep. He woke this AM and states he feels great. He has been active with no recurrence of chest pain or pressure. No SOB or other concerns. Should patient be evaluated? * Telephone Encounter - William Murphy - 10/06/2021 0941 EDT Patient left voicemail stating that he thinks he had a mild heart attack in the middle of the night, it woke up him and he took a nitro and went back to sleep. Patient wanted to report this. documented in this encounter Plan of Treatment Not on file documented as of this encounter Visit Diagnoses Not on filedocumented in this encounter Care Teams Printing Mechanist Relationship Specialty Start Date End Date Mariana Mcnally NP [address] [place] [address] [address] [place] [phone] PCP - General 07/15/21 07/07/22 Danial Juares MD [address] [place] [address] [address] [place] [address] Cardiovascular Disease 06/30/21 documented as of this encounter
--- OUTSIDE RECORDS SUMMARY | 2024-06-08 21:19 | XMS_ITS | Encounter Summary ---
Author Organization [facility] Address [address] [place] [address] Care Team Providers Care Photograph Printer Name Role Phone Danial Juares MD Unavailable [phone] Medical, Josefa Primary Care Provider [phone] Reason for Visit * Reason Onset Date Comments New/Evolving Symptoms 10/27/2023 Encounter Details Date Type Department Care Team (Late st Contact Info) Description 10/27/2023 Telephone [facility] [address] [place] [address] Danial Juares MD [address] [place] [address] [address] [place] [address] New/Evolving Symptoms Social History Tobacco Use Types Packs/Day Years [...] Assessment Author Yes 10/13/2019 22:00 EDT Saurav iKllian RN * Because of a physical, mental, [...] encounter Miscellaneous Notes * Telephone Encounter - Kiara Sauceda RN - 10/27/2023 1514 EDT Spoke with patient and he states he has been having dizziness and lightheadedness for the past several weeks, seems to come in the afternoon. States his blood pressure is stable during these episodes. Denies chest pain or shortness of breath. Pt states he did have COVID in the past month. Has had a cough since. He will reach out to his PCP to discuss possible post COVID symptoms and will call office if anything changes. Encouraged him to seek out ER if his symptoms became more severe or acute. He agreed to plan. * Telephone Encounter - Lizzie Elaine RN - 10/27/2023 1007 EDT LVM for patient to call office * Telephone Encounter - Facundo Finch - 10/27/2023 1003 EDT Pt called, LVM that he is experiencing periodic bouts of dizziness and lightheadedness. Pt would like a call back to discuss. documented in this encounter Plan of Treatment Not on file documented as of this encounter Visit Diagnoses Not on filedocumented in this encounter Care Teams Photograph Printer Relationship Specialty Start Date End Date Medical, Josefa [address] [place] [address] PCP - General 07/08/22 03/28/24 Danial Juares MD [address] [place] [address] Cardiovascular Disease 06/30/21 documented as of this encounter
--- OUTSIDE RECORDS SUMMARY | 2024-06-08 21:19 | XMS_ITS | Encounter Summary ---
Author Organization [facility] Address [address] [place] [address] Care Team Providers Care Packer Dried Beef Name Role Phone ErichAlexis castro Primary Care Provider [phone] Reason for Visit * Reason Onset Date Comments Medications Refill 05/13/2020 Encounter Details Date Type Department Care Team (Late st Contact Info) Description 05/13/2020 Refill [facility] [address] [place] [address] Tierney Grey, YOEL [address] [place] [address] [place] [address] Medications Refill Social History Tobacco Use Types [...] Date bisoprolol (ZEBETA) 5 mg tablet Take 1 Tab by mouth daily for 90 days. 90 Tab 3 05/13/2020 05/13/2020 documented in this encounter Miscellaneous Notes * Telephone Encounter - Tierney Grey RN - 05/13/2020 0814 EST Patient called RF line requesting RF of his bisoprolol. He had 6 month F/U with in . He has upcoming F/U 06/06/20. Escript sent to pharmacy per request. documented in this encounter Plan of Treatment Not on file documented as of this encounter Visit Diagnoses Not on filedocumented in this encounter Discontinued Medications Medication Sig Discontinue Reason Start Date End Da te bisoprolol (ZEBETA) 5 mg tablet Take 1 Tab by mouth daily for 90 days. Reorder 01/17/2020 05/13/2020 documented as of this encounter Care Teams Packer Dried Beef Relationship Specialty Start Date End Date Alexis Jung, [address] [place] [address] [place] [address] PCP - General 10/13/19 07/13/21 documented as of this encounter
--- OUTSIDE RECORDS SUMMARY | 2024-06-08 21:19 | XMS_ITS | Encounter Summary ---
Author Organization [facility] Address [address] [place] [address] Care Team Providers Care Fish Tender Name Role Phone Danial Juares MD Unavailable [phone] Medical, Josefa Primary Care Provider Zion Quinones DNP Primary Care Provider [phone] Encounter Details Date Type Department Care Team (Late st Contact Info) Description 10/09/2022 Telephone [facility] [address] [place] [address] Hua Bhatia, RN Social History Tobacco Use Types Packs/Day Years [...] Telephone Encounter - Hua Bhatia RN - 10/09/2022 2054 EDT Received call from pt. He is currently experiencing right-sided chest pain. He notes this as sharp,lasting 2-3 times per minute. Denies SOB. He was lightheaded earlier in the afternoon. Advised to seek immediate medical evaluation at the nearest ED. Pt agreeable. documented in this encounter Plan of Treatment Not on file documented as of this encounter Visit Diagnoses Not on filedocumented in this encounter Care Teams Fish Tender Relationship Specialty Start Date End Date Medical, Corner [address] [place] [address] PCP - General 07/08/22 03/28/24 Zion Quinones DNP [address] [place] [address] PCP - General Family Medicine - Primary Care 03/29/24 Danial Juares MD [address] [place] [address] [place] [address] Cardiovascular Disease 06/30/21 documented as of this encounter
--- OUTSIDE RECORDS SUMMARY | 2024-06-08 21:19 | XMS_ITS | Encounter Summary ---
Author Organization [facility] Address [address] [place] [address] Care Team Providers Care Energy Sales Consultant Name Role Phone Alexis Jung Israel Primary Care Provider [phone] Reason for Visit * Reason Comments New Patient Visit * Follow Up (Routine/Next Available) - Order Cancelled Specialty Diagnoses / Procedures Referred By Abhishek schofield Referred To Contact Cardiology Diagnoses NSTEMI (non-ST elevated myocardial infarction) ([facility]) Levar Cortés MD [address] [place] [address] Phone: tel: fax: Anali Niño MD Phone: tel: fax: Referral ID Status Reason Start Date Expiration Date Visits Requested Visits Authorized [id number] Order Cancelled Specialty Services Required 10/15/2019 1 1 Encounter Details Date Type Department Care Team (Latest Contact Info) Description 11/28/2019 14:15 EDT Office Visit [facility] [address] [place] [address] Danial Juares MD [address] [facility] [address] [place] [address] Atherosclerosis of [place] coronary artery of [place] heart without angina pectoris (Primary Dx) Social History Tobacco Use Types Packs/Day Years [...] Sign Reading Time Taken Comments Blood Pressure 122/70 11/28/2019 1419 EDT Pulse 52 11/28/2019 1419 EDT Temperature - - Respiratory Rate 16 11/28/2019 1419 EDT Oxygen Saturation 97% 11/28/2019 141 EDT Inhaled Oxygen Concentration - - Weight 98.1 kg (216 lb 3.2 oz) 11/28/2019 1419 E DT Height - - Body Mass Index 33.86 10/14/2019 0909 EDT documented in this encounter Functional Status * Are you blind or do you have serious difficulty seeing, even when wearing glasses? Answer Date of Assessment Author Yes 10/13/2019 22:00 EDT Saurav Killian RN documented as of this encounter Patient Instructions * Patient Instructions* Danial Juares MD - 11/28/2019 14:15 EDT Check fasting lipid profile ad lipoprotein little a at the end of December Stop metoprolol. Call back in 2 weeks to decide on what to do next. Exercise 20-30 min 3-4 times per week, goal 150 min per week documented in this encounter Progress Notes * Danial Juares MD - 11/28/2019 1415 EDT [facility] NEW PATIENT VISIT Date of Service: 11/28/2019 Reason for Visit: Atherosclerosis of [place] coronary artery of [place] heart without angina pectoris[I25.10] Referring Provider: eLvar Cortés Primary Care Provider: Alexis Jung SUBJECTIVE Patient ID: William Cadena, 1940 HPI 79 y.o. 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 William Cadena comes in today feeling well. He denies any cardiac s/s. He has not resumed regular exercise; he just bought an e-bike. Ever since his ID he has been feeling tired. Patient denies CP, SOB, PND, edema, palpitations, syncope, claudication, focal deficits, bleeding, GI or symptoms. PFSH, Medications and Allergies: reviewed. Past Surgical History: Procedure Laterality Date ??? CORONARY ANGIOPLASTY WITH STENT PLACEMENT 10/14/2019 LM: nl. LAD: 80%. LCX: 100%. RCA: 80%. LAD, LCX and RCA ZACHERY ??? KIDNEY CYST REMOVAL ??? TIBIA / FIBIA LENGTHENING Bilateral both LE done as child Current Outpatient Medications: aspirin 81 mg EC tablet clopidogreL (PLAVIX) 75 mg tablet desmopressin (DDAVP) 0.1 mg tablet LORazepam (ATIVAN) 1 mg tablet metoprolol (LOPRESSOR) 25 mg tablet nitroGLYCERIN (NITROSTAT) 0.3 mg SL tablet rosuvastatin (CRESTOR) 20 mg tablet No current facility-administered medications for this visit. Outpatient Medications Marked as Taking for the 11/28/19 encounter (Office Visit) with Danial Juares MD Medication Sig ??? aspirin 81 mg EC tablet Take 1 Tab by mouth daily. ??? clopidogreL (PLAVIX) 75 mg tablet Take 1 Tab by mouth daily. ??? desmopressin (DDAVP) 0.1 mg tablet Take 0.2 mg by mouth daily. ??? LORazepam (ATIVAN) 1 mg tablet Take 1 mg by mouth every 4 hours as needed for Anxiety. ??? metoprolol (LOPRESSOR) 25 mg tablet Take 0.5 Tabs by mouth 2 times daily. (Patient taking differently: Take 25 mg by mouth at bedtime. ) ??? nitroGLYCERIN (NITROSTAT) 0.[address] 1 Tab under the tongue every 5 minutes as needed for Chest Pain. ??? rosuvastatin (CRESTOR) 20 mg tablet Take 1 Tab by mouth daily. ALLERGIES: Patient has no known allergies. FAMILY HX: No premature CAD SOCIAL HX: Nonsmoker, 1-2 drinks/night, more in the past ROS: A 10 point review of systems was performed; pertinent findings as mentioned above, all others negative OBJECTIVE VITAL SIGNS BP 122/70 Pulse 52 Resp 16 Wt 98.1 kg (216 lb 3.2 oz) SpO2 97% BMI 33.86 kg/m?? Wt Readings from Last 3 Encounters: 10/15/19 98 kg (216 lb) BP Readings from Last 3 Encounters: 10/15/19 125/80 10/13/19 (!) 162/94 Pulse Readings from Last 3 Encounters: 10/15/19 66 10/13/19 74 EXAMINATION GENERAL: Pleasant, no acute distress. HEENT: Anicteric, mucous membranes moist. NECK: Supple, normal jugular venous pressure, brisk carotid upstrokes, no bruits. CHEST: Nontender. LUNGS: Clear to auscultation bilaterally, no rhonchi rales or wheezes. HEART: Regular rate and rhythm, normal S1-S2, no murmurs. ABDOMEN: Soft, nontender, nondistended, bowel sounds present, no bruits. EXTREM: No clubbing, cyanosis, edema, equal pulses. SKIN: Warm and dry, no rashes. NEURO: Alert and oriented x3, grossly intact DATA: Available records including laboratory and cardiac studies reviewed; pertinent findings are as follows. Lab Results Component Value Date WBC 7.53 10/15/2019 HGB 14.4 10/15/2019 HCT 41.2 10/15/2019 PLT 152 10/15/2019 Lab Results Component Value Date INR 1.0 10/13/2019 Lab Results Component Value Date CREATININE 0.94 10/15/2019 CALCGFR 78 10/15/2019 NA 135 (L) 10/15/2019 K 4.2 10/15/2019 MG 2.0 10/13/2019 No results found for: ALB, ALT, AST, GGT, ALKPHOS, BILITOT Lab Results Component Value Date TROPONINI 15.300 (H) 10/15/2019 NTBNP 1,470 (H) 10/13/2019 Lab Results Component Value Date CHOL 182 10/13/2019 HDL 36 10/13/2019 LDLBASE 122 10/13/2019 TRIG 119 10/13/2019 Lab Results Component Value Date HGBA1C 5.2 10/13/2019 No results found for: IRON, FERRITIN, TRANSFERRIN, TIBC Echocardiogram September 2019: EF 55-60%. Normal RV. Mild MR. 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 Normal aorta. ASSESSMENT & PLAN 1. CAD, now s/p PCI for NSTEMI No angina or heart failure. Normotensive. Reasonable baseline lipid profile - 12 months of DAPT - continue statin - hold metoprolol to address fatigue; if it resolves will try bisoprolol - repeat fasting lipids and lipoprotein a in a few weeks at [facility] - walk/bike/swim 20-30 min 3-4 times per week, goal 150 min per week; cardiac rehab declined 2. 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 Natural course of AI and when and how to intervene discussed. - echo in 2 - 3 years Follow-up 6 month; patient advised to call back in couple weeks to decide on beta gail Danial Juares MD, PhD No orders of the defined types were placed in this encounter. documented in this encounter Plan of Treatment Not on file documented as of this encounter Visit Diagnoses Diagnosis Atherosclerosis of [place] coronary artery of [place] heart without angina pectoris- Primary documented in this encounter Discontinued Medications Medication Sig Discontinue Reason Start Date End Da te metoprolol (LOPRESSOR) 25 mg tablet Take 0.5 Tabs by mouth 2 times daily. Side effects 10/15/2019 11/28/2019 documented as of this encounter Care Teams Energy Sales Consultant Relationship Specialty Start Date End Date Alexis Jung DO [address] [place] [address] PCP - General 10/13/19 07/13/21 documented as of this encounter
--- OUTSIDE RECORDS SUMMARY | 2024-06-08 21:19 | XMS_ITS | Encounter Summary ---
Author Organization [facility] Address [address] [place] [address] Care Team Providers Care Architectural Draftsperson Name Role Phone Alexis Jung DO Primary Care Provider [phone] Danial Juares MD Unavailable [phone] Mariana Mcnally C DEVELOPER Primary Care Provider [phone] Josefa Serna Primary Care Provider [phone] Zion Quinones DNP Primary Care Provider [phone] Encounter Details Date Type Department Care Team (Late st Contact Info) Description 09/10/2020 Lab Requisition [facility] Pathology & Laboratory Medicine - [facility] [address] [place], [place] [id number] Outr Resulting Lab, Provider Social History Tobacco [...] Procedure Name Priority Date/Time Associated Diagnosis Comments PSA TOTAL, DIAGNOSTIC Routine 09/10/2020 9:59 EDT documented in this encounter Results * PSA TOTAL, DIAGNOSTIC (09/10/2020 9:59 EDT) PSA 2.2 0.0 - 6.5 ng/mL 09/10/2020 22:26 EDT [facility] Blood VENOUS BLOOD / Unknown 09/10/2020 9:59 EDT 09/10/2020 21:24 EDT Narrative [facility] - 09/10/2020 22:26 EDT NOTE: Serum PSA concentration should not be interpreted as absolute evidence for the presence or absence of malignant disease. Assayed on Siem[employer]aur XPT using chemiluminescent technology.??Values obtained by using different assay methods cannot be used interchangeably. us Provider Outr Resulting Lab CHEMISTRY & BLOOD GA S ORDERABLES Final Result [facility] [address] [place] [address] documented in this encounter Visit Diagnoses Not on filedocumented in this encounter Care Teams Architectural Draftsperson Relationship Specialty Start Date End Date Alexis Jung DO [address] [address] PCP - General 10/13/19 07/13/21 Mariana Mcnally NP [address] [place] [address] PCP - General 07/15/21 07/07/22 Medical, [facility] [address] [place] [address] PCP - General 07/08/22 03/28/24 Zion Quinones, CONSUELO [address] [place] [id number] PCP - General Family Medicine - Primary Care 03/29/24 Danial Juares MD [address] [place] [address] [phone] Cardiovascular Disease 06/30/21 documented as of this encounter
--- OUTSIDE RECORDS SUMMARY | 2024-06-08 21:19 | XMS_ITS | Encounter Summary ---
Author Organization [facility] Address [address] [place] [address] Care Team Providers Care Contracting Analyst Name Role Phone ErichAlexis castro Primary Care Provider [phone] Reason for Visit * Reason Onset Date Comments Medications Refill 01/17/2020 Encounter Details Date Type Department Care Team (Late st Contact Info) Description 01/17/2020 Telephone [facility] Cardiology Clinic [address] [place], [place] [id number] Jason Gomez MD [address] [facility] [address] [place] [address] Medications Refill Social History Tobacco [...] Date of Assessment Author Yes 10/13/2019 22:00 EDSaurav Restrepo RN documented as of this encounter Ordered Prescriptions Prescription Sig Dispense Quantity Refills Last Filled Start Date End Date bisoprolol (ZEBETA) 5 mg tablet Take 1 Tab by mouth daily for 90 days. 90 Tab 01/17/2020 05/13/2020 documented in this encounter Miscellaneous Notes * Telephone Encounter - Carline Bhatia RN - 01/17/2020 1151 EDT Spoke with patient. He is amenable to increasing bisoprolol shetty to 5 mg. He requested new rx indicating change in dose. Advised to call the clinic if he has any concerns or questions. Requested Prescriptions Signed Prescriptions Disp Refills ??? bisoprolol (ZEBETA) 5 mg tablet 90 Tab 0 Sig: Take 1 Tab by mouth daily for 90 days. Authorizing Provider: JASON GOMEZ Ordering User: CARLINE BHATIA * Telephone Encounter - Jason Gomez MD - 01/17/2020 1138 EDT He can try 5 mg (whole tab) daily. * Telephone Encounter - Tierney Grey RN - 01/17/2020 1058 EDT Patient tolerating Bisoprolol 2.5mg well. Per your note 12/14, target dose 5mg. Should patient increase dose at this time? If so what dosing? * Telephone Encounter - Facundo Finch - 01/17/2020 1030 EDT Pt called and LM that states that he would like Dr. Gomez to know that he has done well on the bisoprolol, he is not having any tiredness with this medication. He is looking a refill to be sent to his pharmacy. documented in this encounter Plan of Treatment Not on file documented as of this encounter Visit Diagnoses Not on filedocumented in this encounter Discontinued Medications Medication Sig Discontinue Reason Start Date End Da te bisoprolol (ZEBETA) 5 mg tablet Take 0.5 Tabs by mouth daily. Dose adjustment 12/14/2019 01/17/2020 documented as of this encounter Care Teams Contracting Analyst Relationship Specialty Start Date End Date Alexis Jung DO [address] [place] [address] PCP - General 10/13/19 07/13/21 documented as of this encounter
--- OUTSIDE RECORDS SUMMARY | 2024-06-08 21:19 | XMS_ITS | Encounter Summary ---
Author Organization [facility] Address [address] [place] [address] Care Team Providers Care Service Counselor Name Role Phone Erich Alexis Wood DO Primary Care Provider [phone] Danial Juares MD Unavailable [phone] Mariana Mcnally NP Primary Care Provider [phone] Josefa Serna Primary Care Provider [phone] Zion Quinones DNP Primary Care Provider [phone] Reason for Visit * Reason Comments Other Encounter Details Date Type Department Care Team (Late st Contact Info) Description 05/26/[address] [facility] Cardiology Clinic [address] [place] [address] Danial Juares MD [address] [facility] [address] [place] [address] Other Social History Tobacco Use Types [...] BY MOUTH EVERY DAY 90 Tablet 3 05/26/2021 06/08/2022 bisoprolol (ZEBETA) 5 mg tablet TAKE ONE TABLET BY MOUTH EVERY DAY 90 Tablet 3 05/26/2021 06/08/2022 documented in this encounter Plan of Treatment Not on file documented as of this encounter Visit Diagnoses Not on filedocumented in this encounter Discontinued Medications Medication Sig Discontinue Reason Start Date End Da te bisoprolol (ZEBETA) 5 mg tablet Take 1 Tab by mouth daily. 05/13/2020 05/26/2021 rosuvastatin (CRESTOR) 20 mg tablet Take 1 Tab by mouth daily. 05/13/2020 05/26/2021 documented as of this encounter Care Teams Service Counselor Relationship Specialty Start Date End Date Alexis Jung DO [address] [place], [place] [address] PCP - General 10/13/19 07/13/21 Mariana Mcnally, VISUAL DISPLAY ASSOCIATE [address] [place] [phone] PCP - General 07/15/21 07/07/22 [facility] [address] [place] [address] PCP - General 07/08/22 03/28/24 Zion Quinones, DNP [address] [place], [place] [address] PCP - General Family Medicine - Primary Care 03/29/24 Danial Juares MD [address] [place] [address] [address] [place] [phone] Cardiovascular Disease 06/30/21 documented as of this encounter
--- OUTSIDE RECORDS SUMMARY | 2024-06-08 21:19 | XMS_ITS | Referral Summary ---
Author Organization [facility] Address [address] [place] [address] Care Team Providers Care Volleyball Player Name Role Phone Danial Juares MD Unavailable [phone] Zion Quinones DNP Primary Care Provider [phone] Encounters Date Type Department Care Team Description 03/29/2024 15:15 EST Office Visit [facility]iology Clinic [address], [place] [id number] Danial Juares MD CAD S/P percutaneous coronary angioplasty (Primary Dx); Nonrheumatic aortic valve insufficiency from Last 3 Months Allergies Active Allergy Reactions Criticality Noted Date [...] migh t be different from the original. [facility] ALFA - Permission to speak to Gifty Daniel (partner), Mckinley Cadena (son), and Gabriel Cadena (daughter) Problem Noted Date Diagnosed Date Nonrheumatic aortic valve insufficiency 07/14/19 S/P coronary artery stent placement 07/14/2021 Diabetes insipidus ([facility]) 06/05/2020 Atherosclerosis of [place] ronary artery of [place] heart without angina pectoris 11/28/2019 Resolved Problems Problem Noted Date Diagnosed Date Resolved Date COVID-19 02/14/2022 07/08/2022 NSTEMI (non-ST elevated myoc ardial infarction) ([facility]) 10/13/2019 11/28/2019 Social History Tobacco Use Types Packs/Day Years [...] 21:34 EDT Sexual Orientation Not on file Last Filed Vital Signs Vital Sign Reading [...] Body Mass Index 31.32 03/29/2024 1457 EST Functional Status * Are you blind or do you have serious difficulty seeing, even when wearing glasses? Answer Date of Assessment Author Yes 10/13/2019 22:00 Saurav Araya RN * Because of a physical, mental, or emotional condition, does this person have difficulty doing errands alone such as visiting a doctor's office or shopping? Answer Date of Assessment Author No 07/14/2021 16:11 EST Mental Status * Because of a physical, mental, or emotional condition, does this person have serious difficulty concentrating, remembering, or making decisions? Answer Entry Date Author No 07/14/2021 16:11 EST Plan of Treatment Not on file Medical Devices Implanted Type Area Livestock Producer Device Identifier Shelf Expiration Date Model / Serial / Lot Stent Coronary Everomimus Eluting Pt Cr Otw 2.67a11sb Promus Elite [id number] - [id number] Implanted:Qty : 1 on 10/14/2019 by Christiano Montgomery MD at [facility] Drug Eluting Stent Left: Chest [employer] [id number] 10/09/2020 [id number] / / [id number] Stent Coronary Everomimus Eluting Pt Cr Otw 3.5x28mm Promus Elite [id number] - [id number] Implanted:Qty : 1 on 10/14/2019 by Christiano Montgomery MD at [facility] Drug Eluting Stent Left: Chest [employer] [id number] 12/22/2020 [id number] / / [id number] Stent Drug Eluting 4.000 X 16mm Promus Elite Mr - [id number] Implanted:Qty : 1 on 10/14/2019 by Christiano Montgomery MD at [facility] Drug Eluting Stent Left: Chest [employer] [id number] 09/11/2020 [id number] / / [id number] [address] [place] [address] MEDICARE ACO [place] [facility] Member Subscriber Plan / Payer ( fective 2019-) Name:William Cadena Relation to Subscriber:Self Name:William Cadena Payer ID:[id number] ([facility]) Group ID:Not on file Type:[employer] GL Address: [facility] [id number] [place] [id number] MEDICARE ACO [place] Advance Directives For more information, please contact: [phone] * Full Code (Latest Code Status on File) Date Activated Date Inactivated Comments 10/13/2019 22:50 10/15/2019 12:40 Question Answer Comments Reason for decision includes: Full code consistent with overall plan of care Who participated in the discussion? Not Discussrashawn d Care Teams Volleyball Player Relationship Specialty Start Date End Date Zion Quinones, DNP [address] [place] [address] [place] [address] PCP - General Family Medicine - Primary Care 03/29/24 Danial Juares MD [address] [place] [address] [address] [place] [id number] Cardiovascular Disease 06/30/21
--- OUTSIDE RECORDS SUMMARY | 2024-06-08 21:19 | XMS_ITS | Encounter Summary ---
Author Organization [facility] Address [address] [place] [address] Care Team Providers Care Toby Maker Name Role Phone Danial Juares MD Unavailable [phone] Zion Quinones [facility] Primary Care Provider [phone] Reason for Referral * Cardiology (Routine/Next Available) - New Request Specialty Diagnoses / Procedures Referred By Contac t Referred To Contact Diagnoses Nonrheumatic aortic valve insufficiency Procedures TRANSTHORACIC ECHO (TTE) COMPLETE MI ECHO TTHRC R-T 2D W/WOM-MODE COMPL SPEC&COLR D Danial Juares MD [address] [place] [address] [address] Phone: tel: fax: [facility] Referral ID Status Reason Start Date Expiration Date V isits Requested Visits Authorized [id number] New Request 03/29/2024 1 1 Reason for Visit * Reason Comments Coronary Artery Disease Follow-up 18 mo Encounter Details Date Type Department Care Team (Latest Contact Info) Description 03/29/2024 15:[address] [facility] [address] [place] [address] Danial Juares MD [address] [place] [address] [address] [place] [address] CAD S/P percutaneous coronary angioplasty (Primary Dx); Nonrheumatic aortic valve insufficiency Social History Tobacco Use Types Packs/Day Years [...] EST Pulse 55 03/29/2024 1457 EST Temperature - - Respiratory Rate - - Oxygen Saturation 98% 03/29/2024 1457 EST Inhaled Oxygen Concentration - - Weight 90.7 kg (200 lb) 03/29/2024 1457 EST Height 170.2 cm (5' 7.01) 03/29/2024 1457 EST Body Mass Index 31.32 03/29/2024 1457 EST documented in this encounter Functional Status [...] Progress Notes * Danial Juares MD - 03/29/2024 1515 EST [facility] CARDIOLOGY FOLLOW-UP Date of Service: 03/29/2024 Patient: William [place]on,1940 Reason for Visit: CAD S/P percutaneous coronary angioplasty [I25.10, Z98.61] ASSESSMENT & PLAN 1. NSTEMI s/p LAD, LCX and RCA PCI 09/2021. No angina or heart failure. No up-to-date lipid profile. - continue ASA, statin and beta gail - aim for LDL < 70 or NHDL < 100 2. 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 I did not hear any AI today. - echo in 2025 Follow-up 1.5 years w/ echo SUBJECTIVE William Cadena, 1940 83 y.o. male patient with personal history of diabetes insipidus, TAV-AI and NSTEMI s/p LAD, LCX and RCA PCI 09/2019. Normal EF at time of [place]. William Cadena is feeling well. W/in the last year he had 3 episodes of CP that responded well to NTG. All episode occurred at rest. He hasn't experienced any CP during activities. Most strenous activity he does is riding his bike. Occasionally he experiences heart fluttering, but denies sustained tachypalpitations. Patient denies CP, SOB, PND, edema, syncope, bleeding, focal deficits, GI symptoms. Outpatient Medications Marked as Taking for the 03/29/24 encounter (Office Visit) with Danial Juares MD Medication Sig aspirin 81 mg EC tablet Take 1 Tab by mouth daily. bisoprolol (ZEBETA) 5 mg tablet TAKE ONE TABLET BY MOUTH EVERY DAY desmopressin (DDAVP) 0.1 mg tablet Take 2 Tablets by mouth daily. LORazepam (ATIVAN) 1 mg tablet Take 1 Tablet by mouth every 4 hours as needed for Anxiety. nitroGLYCERIN (NITROSTAT) 0.[address] 1 Tablet under the tongue every 5 minutes as needed for Chest Pain. Call 911 if needing to take 3 tablets. rosuvastatin (CRESTOR) 20 mg tablet TAKE ONE TABLET BY MOUTH EVERY DAY ALLERGIES: Bee venom protein (honey bee) and Metoprolol FAMILY HX: No premature CAD SOCIAL HX: Nonsmoker, occasional alcohol, more in the past ROS: Performed; pertinent positives and negative as mentioned above OBJECTIVE Blood pressure 140/84, pulse 55, height 170.2 cm (67.01), weight 90.7 kg (200 lb), SpO2 98%. DIAGNOSTIC DATA Available records including laboratory and cardiac studies reviewed. Lab Results Hematology: Lab Results Component Value Date WBC 7.53 10/15/2019 HGB 14.4 10/15/2019 PLT 152 10/15/2019 No results found for: FERRITIN, IRON, TIBC, LABIRON Chemistry: Lab Results Component Value Date CREATININE 0.94 10/15/2019 CALCGFR 78 10/15/2019 BUN 25 10/13/2019 NA 135 (L) 10/15/2019 CL 105 10/15/2019 K 4.2 10/15/2019 MG 2.0 10/13/2019 Cardiac Markers: Lab Results Component Value Date NTBNP 1,470 (H) 10/13/2019 TROPONINI 15.300 (H) 10/15/2019 Lipids: Lab Results Component Value Date CHOL 182 10/13/2019 TRIG 119 10/13/2019 HDL 36 10/13/2019 LDLBASE 122 10/13/2019 NHDLCH 146 10/13/2019 Endocrine: Lab Results Component Value Date HGBA1C 5.2 10/13/2019 Cardiac Studies Echocardiogram September 1405/2022: EF 55-60%. Normal RV. Mild TAV-AI. Trivial MR. Normal aorta. PHYSICAL EXAM GENERAL: Pleasant, no acute distress. HEENT: Anicteric. NECK: Supple, normal jugular venous pressure CHEST: Nontender. LUNGS: Clear to auscultation bilaterally, no rhonchi rales or wheezes. HEART: Regular rate and rhythm, normal S1-S2, no murmurs. EXTREM: No cyanosis or edema, equal pulses. SKIN: Warm and dry, no rashes. NEURO: Alert and oriented x3, grossly intact ORDERS & MEDICATION CHANGES Other Orders Placed This Visit Procedures TRANSTHORACIC ECHO (TTE) COMPLETE There are no discontinued medications. No orders of the defined types were placed in this encounter. Danial Juares MD, PhD documented in this encounter Plan of Treatment Scheduled Orders Name Type Priority Associated Diagnoses Orde r Schedule TRANSTHORACIC ECHO (TTE) COMPLETE Echocardiography Routine Nonrheumatic aortic valve insufficiency Expected: 03/29/2024, Expires: 03/29/2026 documented as of this encounter Visit Diagnoses Diagnosis CAD S/P percutaneous coronary angioplasty- Primary Coronary atherosclerosis of [place] coronary artery Nonrheumatic aortic valve insufficiency Aortic valve disorders documented in this encounter Care Teams Toby Maker Relationship Specialty Start Date End Date Zion Quinones, [facility] [address] [place] [address] PCP - General Family Medicine - Primary Care 03/29/24 Danial Juares MD [address] [place] [address] [address] [place] [address] Cardiovascular Disease 06/30/21 documented as of this encounter
--- OUTSIDE RECORDS SUMMARY | 2024-06-08 21:19 | XMS_ITS | Encounter Summary ---
Author Organization [facility] Address [address] [place] [address] Care Team Providers Care Kitchen Utility Associate Name Role Phone Danial Juares MD Unavailable [phone] Medical, Josefa Primary Care Provider [phone] Reason for Visit * Reason Comments Coronary Artery Disease Encounter Details Date Type Department Care Team (Latest Contact Info) Description 07/08/2022 13:15 EST Office Visit [facility] Cardiology Clinic [address] [place] [address] Danial Juares MD [address] [facility] [address] [place] [address] S/P coronary artery stent placement (Primary Dx); Atherosclerosis of [place] coronary artery of [place] heart without angina pectoris; Nonrheumatic aortic valve insufficiency Social History Tobacco [...] Sign Reading Time Taken Comments Blood Pressure 116/76 07/08/2022 1302 EST Pulse 62 07/08/2022 1302 EST Temperature - - Respiratory Rate - - Oxygen Saturation 96% 07/08/2022 1302 EST Inhaled Oxygen Concentration - - Weight 90.7 kg (200 lb) 07/08/2022 1302 EST Height 170.2 cm (5' 7) 07/08/2022 1302 EST Body Mass Index 31.32 07/08/2022 1302 EST documented in this encounter Functional Status [...] 07/14/2021 16:11 EST documented in this encounter Patient Instructions * Patient Instructions* Danial Juares MD - 07/08/2022 13:15 EST Your LDL (bad cholesterol) should be less than 70. documented in this encounter Progress Notes * Danial Juares MD - 07/08/2022 1315 EST [facility] CARDIOLOGY FOLLOW-UP Date of Service: 07/08/2022 Reason for Visit: S/P coronary artery stent placement [Z95.5] ASSESSMENT & PLAN 1. NSTEMI s/p LAD, LCX and RCA PCI 09/2021. No angina or heart failure. No up-to-date lipid profile. - continue ASA, statin and beta gail - lipid profile w/ next lab draw (PCP/[facility]) -adjust Rx to achieve LDL < 70 2. 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 I did not hear any AI today. - echo in 2024 Follow-up 1.5 years, no testing SUBJECTIVE William Cadena, 1940 82 y.o. male patient with personal history of diabetes insipidus, COVID-19, TAV- AI and NSTEMI s/p LAD, LCX and RCA PCI 09/2019. Normal EF at time of [place]. William Cadena is feeling well. He denies any cardiac s/s. He does not have an exercise routine. He does not feel limited from a cardiopulmonary standpoint. Patient denies CP, SOB, PND, edema, palpitations, syncope, bleeding, focal deficits, GI symptoms. Current Outpatient Medications Medication ??? [...] negative as mentioned above OBJECTIVE Blood pressure 116/76, pulse 62, height 170.2 cm (67), weight 90.7 kg (200 lb), SpO2 96 %. DIAGNOSTIC DATA Available records including laboratory and [...] Value Date HGBA1C 5.2 10/13/2019 Echocardiogram September 1405/2022: EF 55-60%. Normal RV. [...] x3, grossly intact ORDERS & MEDICATION CHANGES No orders of the defined types were placed in this encounter. There are no discontinued medications. No orders of the defined types were placed in this encounter. Danial Juares MD, PhD documented in this encounter Plan of Treatment Not on file documented as of this encounter Visit Diagnoses Diagnosis S/P coronary artery stent placement- Primary Postsurgical percutaneous transluminal coronary angioplasty status Atherosclerosis of [place] coronary artery of [place] heart without angina pectoris Nonrheumatic aortic valve insufficiency Aortic valve disorders documented in this encounter Care Teams Kitchen Utility Associate Relationship Specialty Start Date End Date Medical, Corner [address] [place] [address] PCP - General 07/08/22 03/28/24 Danial Juares MD [address] [place] [address] [place] [phone] Cardiovascular Disease 06/30/21 documented as of this encounter
--- OUTSIDE RECORDS SUMMARY | 2024-06-08 21:19 | XMS_ITS | Encounter Summary ---
Author Organization [facility] Address [address] [place] [address] Care Team Providers Care Help Desk Coordinator Name Role Phone Erich, Alexis Israel Primary Care Provider [phone] Reason for Visit * Reason Comments Telemedicine Phone Call Coronary Artery Disease Encounter Details Date Type Department Care Team (Latest Contact Info) Description 06/05/2020 10:45 EST Telemedicine [facility] Cardiology Clinic [address] [place], [place] [id number] Danial Juares MD [address] [facility] [address] [place] [address] Atherosclerosis of [place] coronary artery of [place] heart without angina pectoris (Primary Dx) Social [...] Author Yes 10/13/2019 22:00 Saurav Araya RN documented as of this encounter Progress Notes * Danial Juares MD - 06/05/2020 1045 EST [facility] CARDIOLOGY TELEMEDICINE VISIT Date of Service: 06/05/2020 Today's visit was conducted by telephone. The concept of ???Telemedicine?? has been described to the patient. Patient has been informed of the anticipated benefits and possible risks. Patient understands the information provided regarding telemedicine, has had the opportunity to ask questions about this information, and all questions havebeen answered to patient???s satisfaction. Patient consents for the use of telemedicine in his/her medical care and authorizes the transmission of any relevant medical information to providers and their staff involved in patient???s medical or mental health care. Verbal consent was obtained by myself or auxiliary staff: yes. Reason for Visit: Atherosclerosis of [place] coronary artery of [place] heart without angina pectoris[I25.10] Primary Care Provider: Alexis Jung SUBJECTIVE Patient ID: William Cadena, 1940 HPI 80 y.o. 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 William Cadena is feeling well. He denies any cardiac s/s. He exercises regularly; he goes fro long walks in [place] He does not feel limited from a cardiopulmonary standpoint. Tiredness has resolved w/ switch from metoprolol to bisoprolol. Patient denies CP, SOB, PND, edema, palpitations, syncope, bleeding, GI symptoms. Current Outpatient Medications Medication ??? aspirin 81 mg EC tablet ??? bisoprolol (ZEBETA) 5 mg tablet ??? clopidogreL (PLAVIX) 75 mg tablet ??? desmopressin (DDAVP) 0.1 mg tablet ??? LORazepam (ATIVAN) 1 mg tablet ??? nitroGLYCERIN (NITROSTAT) 0.3 mg SL tablet ??? rosuvastatin (CRESTOR) 20 mg tablet No current facility-administered medications for this visit. ALLERGIES: Metoprolol FAMILY HX: No premature CAD SOCIAL HX: Nonsmoker, 1-2 drinks/night, more in the past ROS: A 10 point review of systems was performed; pertinent findings as mentioned above, all others negative OBJECTIVE PHYSICAL EXAM Home vital signs: There were no vitals taken for this visit. Physical exam findings patient can observe: None GENERAL: Does not appear to be in acute distress LUNGS: Unlabored breathing, speaks in full sentences, no audible wheezing NEURO: A&O x3, normal speech DATA: Available records including laboratory and cardiac [...] baseline lipid profile - 12 months of DAPT; life-long ASA thereafter - continue statin and beta gail - lipid profile w/ next lab draw ([facility]P/[facility]) 2. 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 documented in this encounter Plan of Treatment Not on file documented as of this encounter Visit Diagnoses Diagnosis Atherosclerosis of [place] coronary artery of [place] heart without angina pectoris- Primary documented in this encounter Care Teams Help Desk Coordinator Relationship Specialty Start Date End Date Alexis Jung DO [address] [place] [address] PCP - General 10/13/19 07/13/21 documented as of this encounter
--- OUTSIDE RECORDS SUMMARY | 2024-06-08 21:20 | XMS_ITS | Encounter Summary ---
Author Organization [facility] Address [facility] [place] [address] Care Team Providers Care Kitchen Lead Name Role Phone Ceasar Pratt MD Primary Care Provider Unavailab le Encounter Details Date Type Department Care Team (Late st Contact Info) Description 09/17/2020 2:00 PM EDT - 09/17/2020 3:00 PM EDT Surgery [place] [address] Burton Casey MD [facility] [place] [address] COLONOSCOPY, POLYPECTOMY, REMOVAL LESION BY SNARE (WRVU 4.57) Social History Tobacco Use Types Packs/Day Years Used Date Smoking Tobacco: Former Cigarettes Q uit: 08/16/1975 Smokeless Tobacco: Never Alcohol Use Standard Drinks/Week Comments Yes 7 (1 standard drink = 0.6 oz pur e alcohol) Sex and Gender Information Value Date Recorded Sex Assigned at Not on file Gender Identity Not on file Sexual Orientation Not on file documented as of this encounter Last Filed Vital Signs Vital Sign Reading Time Taken Comments Blood Pressure 136/73 09/17/2020 1:56 PM EDT Pulse 55 09/17/2020 1:56 PM EDT Temperature 36.2 ??C (97.1 ??F) 09/17/2020 1:56 PM ED T Respiratory Rate 16 09/17/2020 1:56 PM EDT Oxygen Saturation 98% 09/17/2020 1:56 PM EDT Inhaled Oxygen Concentration - - Weight 90.7 kg (200 lb) 09/17/2020 1:56 PM EDT Height 170.2 cm (5' 7) 09/17/2020 1:56 PM EDT Body Mass Index 31.32 09/17/2020 1:56 PM EDT documented in this encounter Discharge Instructions * Discharge Instructions* Angelica Scott RN - 09/17/2020 3:42 PM EDT Colonoscopy: What to Expect at Home Your Recovery Your doctor will talk to you about when you will need your next colonoscopy. Your doctor can help you decide how often you need to be checked. This will depend on the results of your test and your risk for colorectal cancer. After the test, you may be bloated or have gas pains. You may need to pass gas. If a biopsy was done or a polyp was removed, you may have streaks of blood in your stool (feces) for a few days. Problems such as heavy rectal bleeding may not occur until several weeks after the test. This isn't common. But it can happen after polyps are removed. This care sheet gives you a general idea about how long it will take for you to recover. But each person recovers at a different pace. Follow the steps below to get better as quickly as possible. How can you care for yourself at home? Activity Rest when you feel tired. ?? You can do your normal activities when it feels okay to do so. Diet ?? Follow your doctor's directions for eating. ?? Unless your doctor has told you not to, drink plenty of fluids. This helps to replace the fluidsthat were lost during the colon prep. ?? Do not drink alcohol. Medicines ?? Your doctor will tell you if and when you can restart your medicines. He or she will also give you instructions about taking any new medicines. ?? If you take blood thinners, such as warfarin (Coumadin), clopidogrel (Plavix), or aspirin, be sure to talk to your doctor. He or she will tell you if and when to start taking those medicines again. Make sure that you understand exactly what your doctor wants you to do. ?? If polyps were removed or a biopsy was done during the test, your doctor may tell you not to take aspirin or other anti-inflammatory medicines for a few days. These include ibuprofen (Advil, Motrin) and naproxen (Aleve). Other instructions ?? For your safety, do not drive or operate machinery until the medicine wears off and you can think clearly. Your doctor may tell you not to drive or operate machinery until the day after your test. ?? Do not sign legal documents or make major decisions until the medicine wears off and you can think clearly. The anesthesia can make it hard for you to fully understand what you are agreeing to. Additional Information for Sedation Patients For patients who received sedation: ?? You may have received medications before and/or during your procedure which effects your judgement and reaction time. ?? Do not drive, operate machinery, drink alcoholic beverages or make important decisions for 24 hours. ?? Be careful on stairs as you may be unsteady on your feet. ?? You may eat a regular diet as tolerated. ?? Do not smoke if you are alone. ?? IV site: Slight redness or tenderness is normal, you can use a warm compress if you would like. If tenderness and/or redness increase or if foul drainage occurs, please contact your Doctor. Please call [phone] before 8pm Mon-Fri with problems, questions or concerns. If you call after 8pm or on weekends, call the Hospital at [phone] and ask to speak to the Supervisor Paint Department mergers and acquisitions manager and the caramel coloring operator will contact that person for you. When should you call for help? Call [phone] anytime you think you may need emergency care. For example, call if: ?? You passed out (lost consciousness). ?? You pass maroon or bloody stools. ?? You have trouble breathing. Call your doctor now or seek immediate medical care if: ?? You have pain that does not get better after you take pain medicine. ?? You are sick to your stomach or cannot drink fluids. ?? You have new or worse belly pain. ?? You have blood in your stools. ?? You have a fever. ?? You cannot pass stools or gas. Watch closely for changes in your health, and be sure to contact your doctor if you have any problems. Where can you learn more? [email or web address] View your After Visit Summary and more online at [email or web address] If you would like to provide feedback about your hospital experience, please call the Office of Patient and Family Relations at . If you have received this After Visit Summary in error, please immediately return it in person to the department, or notify the [facility] Privacy Office by calling toll free at between the hours of 8AM and 5PM to arrange for our retrieval of the documents at no cost to you. Content Version: 12.2 ?? [id number] [employer]. Care instructions adapted under license by [facility]. If you have questions about a medical condition or this instruction, always ask your healthcare professional. [employer] disclaims any warranty or liability for your use of this information. documented in this encounter Medications at Time of Discharge Medication Sig Dispensed Refills Start Date End Date aspirin EC 81 mg Tablet, Delayed Release (E.C.) Take 81 mg by mouth Daily. 10/16/2019 bisoprolol (ZEBETA) 5 mg Tablet Take 5 mg by mouth Daily. 05/13/2020 clopidogreL (Plavix) 75 mg Tablet Take 75 mg by mouth Daily. 05/13/2020 LORazepam (Ativan) 1 mg Tablet Take 1 mg by mouth Every 4 hours as needed. rosuvastatin (Crestor) 20 mg Tablet Take 20 mg by mouth Daily. 05/13/2020 multivitamin (THERAGRAN) tablet Take 1 tablet by mouth every other day. [place]-3 Fatty Acids (FISH OIL) 300 mg Cap Take by mouth daily. Unsure of dosage desmopressin (DDAVP) 0.1 mg tablet Take 1 tablet by mouth 2 times daily. 180 tablet 3 09/14/2012 sildenafil (VIAGRA) 100 mg tablet 04/16/2010 documented as of this encounter H&P Notes * Burton Casey MD - 09/17/2020 2:56 PM EDT Procedure: colonoscopy Indication: surveillance History of Present Illness: Naseem Cadena is a 80 y.o. man with TA in 2013 here for colonoscopy There is no problem list on file for this patient. Medications: Reviewed in EDH No Known Allergies Social History/Family History: Reviewed in EDH. No changes Exam: Patient Vitals for the past 24 hrs: Temp Pulse Resp BP SpO2 O2 Device 09/17/20 1356 36.2 ??C (97.1 ??F) 55 16 136/73 98 % RA Axox3, nad Anicteric, MMM CTAB RRR, no m/r/g abd soft nt nd +bs Assessment and Plan: Proceed with Colonoscopy: ASA Grade: ASA 2 - Patient with mild systemic disease with no functional limitations Mallampati score:II (soft palate, uvula, fauces visible) Sedation plan: Moderate Conscious sedation Risks and benefits of the procedure were discussed with the patient. Consent has been signed. Burton Casey MD documented in this encounter Miscellaneous Notes * Op Note - Burton Casey MD - 09/17/2020 3:11 PM EDT DH Operative Note Patient Name: Naseem Cadena : [id number] MR#: [id number] Case Date: 09/17/2020 Surgeon: Surgeon(s) and Role: * Burton Casey MD - Primary Procedure(s): COLONOSCOPY, POLYPECTOMY, REMOVAL LESION BY SNARE (WRVU 4.67) Please see Provation report for details. documented in this encounter Plan of Treatment Not on file documented as of this encounter Procedures Procedure Name Priority Date/Time Associated Diagnosis Comments SURGICAL PATHOLOGY REPORT Routine 09/17/2020 3:32 PM EDT SPECIMEN TO PATHOLOGY Routine 09/17/2020 3:32 PM EDT Colonoscopy, Remv Lesleila, Snare ([id number]) 09/17/2020 3:04 PM EDT Screening COLONOSCOPY Routine 09/17/2020 3:00 PM EDT documented in this encounter Results * Surgical Pathology Report (09/17/2020 3:32 PM EDT) Final Diagnosis [id number] ? Location: 4T; EA12; A The signing pathologist has (i) examined the relevant preparation(s) for the specimen(s) and (ii) rendered or confirmed the diagnosis(es). . ?Surgical Pathology DIAGNOSIS A - Cecum and transverse colon polyps, excision: Tubular adenoma. Separate colonic mucosa with lymphoid aggregates. CR-PX Electronically signed by: ?Ivan CONTRERAS, Sanjuanita Verified: ??09/22/2020 8:56 ?? Pathologist Performed at: ??-[facility] Dept. of Pathology, [place], [place] SPECIMEN(S) SUBMITTED A - Cecum and transverse colon polyps, excision (2) CLINICAL INFORMATION 80-year-old male, surveillance history of polyps SPECIMEN PROCESSING A - Labeled/Fixative : Cecum and transverse colon polyps, formalin. Quantity/Size: Three, ranging 0.4-1.0 cm. Tissue Description: Soft, red-brown tissues. Sections/Process ing: Submitted en toto ??in 3 cassettes as follows: ?A1: ??Polyp inked and bisected ?A2: ??Polyp inked and trisected ?A3: ??Polyp inked and quadrasected ??MLL 09/22/2020 8:56 AM EDT [facility] GI Biopsy 09/17/2020 3:32 PM EDT 09/17/2020 3:32 PM EDT Burton Casey MD PATHOLOGY/CYTOLOGY O RDERABLES [place] [address] * Specimen to Pathology (09/17/2020 3:32 PM EDT) AP Specimen 09/17/2020 3:32 PM EDT 09/17/2020 3:32 PM EDT Narrative [facility] - 09/17/2020 3:32 PM EDT Specimen requisition ordered. ??Separate Pathology report to follow Burton Casey MD PATHOLOGY/CYTOLOGY O RDERALESLEY Performing Organization Address [facility]/State/ZIP Co de Phone Number [place] [place] [address] * COLONOSCOPY (09/17/2020 3:00 PM EDT) COLONOSCOPY [facility] Endoscopy Procedure Date: 09/17/2020 3:00 PM ? Patient Name: Naseem Cadena ? Date of : 1940 ? Age: 80 ? Order #: [id number] ? Instrument Name: [id number] ? Procedure: ? Colonoscopy Indications: ? High risk colon cancer surveillance: ? Personal history of colonic polyps Providers: ? Burton Casey, Tona Colindres ? Rajesh Fry, ? Wedding Decorator Referring MD: ?Ceasar Pratt MD Medicines: ? Midazolam 3 mg IV, Fentanyl 150 ? micrograms IV Complications: ? No immediate complications. Procedure: ? Pre-Anesthesia Assessment: ? - Prior to the procedure, a History ? and Physical was performed, and ? patient medications and allergies ? were reviewed. The patient is ? competent. The risks and benefits of ? the procedure and the sedation ? options and risks were discussed with ? the patient. All questions were ? answered and informed consent was ? obtained. Patient identification and ? proposed procedure were verified by ? the physician in the pre-procedure ? area. Mental Status Examination: ? alert and oriented. Airway ? Examination: normal oropharyngeal ? airway and neck mobility. Respiratory ? Examination: clear to auscultation. ? CV Examination: normal. Prophylactic ? Antibiotics: The patient does not ? require prophylactic antibiotics. ? Prior Anticoagulants: The patient has ? taken no previous anticoagulant or ? antiplatelet agents. ASA Grade ? Assessment: II - A patient with mild ? systemic disease. After reviewing the ? risks and benefits, the patient was ? deemed in satisfactory condition to ? undergo the procedure. The anesthesia ? plan was to use moderate sedation / ? analgesia (conscious sedation). ? Immediately prior to administration ? of medications, the patient was ? re-assessed for adequacy to receive ? sedatives. The heart rate, ? respiratory rate, oxygen saturations, ? blood pressure, adequacy of pulmonary ? ventilation, and response to care ? were monitored throughout the ? procedure. The physical status of the ? patient was re-assessed after the ? procedure. ? The procedure, indications, benefits, ? risks and alternatives were explained ? to the patient. Specifically ? discussed were potential ? complications including, but not ? limited to, bleeding, perforation, ? infection, missing a cancer, and ? adverse medication reactions. The ? patient was placed in the left ? lateral decubitus position, and a ? digital rectal exam was performed. ? The Colonoscope was inserted in the ? anus and under direct visualization, ? advanced to the terminal ileum. ? Careful inspection was made as the ? colonoscope was withdrawn. The ? patient tolerated the procedure well. ? The quality of the bowel preparation ? was good. ? Findings: ? The terminal ileum appeared normal. ? Four sessile polyps were found in the transverse ? colon and cecum. The polyps were 1 to 3 mm in size. ? These polyps were removed with a cold snare. ? Resection and retrieval were complete. ? The retroflexed view of the distal rectum and anal ? verge was normal and showed no anal or rectal ? abnormalities. ? Multiple small-mouthed diverticula were found in the ? sigmoid colon. ? Moderate Sedation: ? Moderate (conscious) sedation was administered by the ? endoscopy nurse and supervised by the endoscopist. ? The following parameters were monitored: oxygen ? saturation, heart rate, blood pressure, and response ? to care. Impression: ?- The examined portion of the ileum ? was normal. ? - Four 1 to 3 mm polyps in the ? transverse colon and in the cecum, ? removed with a cold snare. Resected ? and retrieved. ? - The distal rectum and anal verge ? are normal on retroflexion view. ? - Diverticulosis in the sigmoid colon. Recommendation: ?- Discharge patient to home. ? - Resume previous diet. ? - Await pathology results. ? - Repeat colonoscopy in 3 - 5 years ? for surveillance based on pathology ? results. ? Attending Participation: ? I personally performed the entire procedure. ? Burton Casey, 09/17/2020 3:33:56 PM Number of Addenda: 0 Note Initiated On: 09/17/2020 3:00 PM PROVATION 09/17/2020 3:00 PM EDT Ceasar Pratt MD GENERAL SURGICAL ORD ERABLES [employer]OVATION documented in this encounter Visit Diagnoses Not on filedocumented in this encounter Administered Medications Inactive Administered Medications - up to 3 most recent administrations Medication Order MAR Action Action Date Dose Rate Site fentaNYL (pf) (50 mcg/mL) multi-dose injection ONCE PRN, Starting on Wed09/17/20 at 1507, Until Wed09/17/20 at 1831, Intra-Operative (Intra-Procedure), Routine Given 09/17/2020 3:13 PM EDT 50 mcg Given 09/17/2020 3:10 PM EDT 50 mcg Given 09/17/2020 3:07 PM EDT 50 mcg lactated ringers infusion 100 mL/hr, Intravenous, CONTINUOUS, Starting on Wed09/17/20 at 1400, Until Wed09/17/20 at 1617, Endoscopy (Day of Procedure) New Bag 09/17/2020 2:08 PM EDT 100 mL/hr 100 mL/hr midazolam (pf) (Versed) (1 mg/mL) multi-dose injection ONCE PRN, Starting on 09/17/20 at 1507, Until 09/17/20 at 1831, Intra-Operative (Intra-Procedure), Routine Given 09/17/2020 3:13 PM EDT 1 mg Given 09/17/2020 3:10 PM EDT 1 mg Given 09/17/2020 3:07 PM EDT 1 mg documented in this encounter Active and Recently Administered Medications Times are shown in EDT. Continuous Medication Order 09/15/2020 09/16/2020 09/17/2020 lactated ringers infusion (CANCELED) 100 mL/hr, Intravenous, CONTINUOUS, Starting on 09/17/20 at 1400, Until 09/17/20 at 1617, Endoscopy (Day of Procedure) 1408 (New Bag - Prov ider: Carol Stanton RN) PRN Medication Order 09/15/2020 09/16/2020 09/17/2020 fentaNYL (pf) (50 mcg/mL) multi-dose injection (CANCELED) ONCE PRN, Starting on 09/17/20 at 1507, Until 09/17/20 at 1831, Intra-Operative (Intra-Procedure), Routine 1507 (Given - Provid er: Tona Fry RN)1510 (Given - Provider: Tona Fry RN)1513 (Given - Provider: Tona Fry RN) midazolam (pf) (Versed) (1 mg/mL) multi-dose injection (CANCELED) ONCE PRN, Starting on 09/17/20 at 1507, Until 09/17/20 at 1831, Intra-Operative (Intra-Procedure), Routine 1507 (Given - Provid er: Tona Fry RN)1510 (Given - Provider: Tona Fry RN)1513 (Given - Provider: Tona Fry, RN) documented in this encounter Care Teams Kitchen Lead Relationship Specialty Start Date End Date Ceasar Pratt MD PCP - General 04/08/10 05/25/24 documented as of this encounter
--- OUTSIDE RECORDS SUMMARY | 2024-06-08 21:20 | XMS_ITS | Encounter Summary ---
[place] [address] Care Team Providers Care Senior Sql Database Developer Name Role Phone Ceasar Pratt MD Primary Care Provider Unavailab le Reason for Visit * Reason Comments Medication Refill Encounter Details Date Type Department Care Team (Late st Contact Info) Description 10/06/2013 Refill [place] [id number] Jennifer Sanchez MD Social History Tobacco Use Types Packs/Day Years Used Date Smoking Tobacco: Former Cigarettes Q uit: 08/16/1975 Smokeless Tobacco: Never Alcohol Use Standard Drinks/Week Comments Yes 2 (1 standard drink = 0.6 oz pur e alcohol) Sex and Gender Information Value Date Recorded Sex Assigned at Not on file Gender Identity Not on file Sexual Orientation Not on file documented as of this encounter Miscellaneous Notes * Telephone Encounter - Brenda Lua LPN - 10/06/2013 3:55 PM EDT Attempted to call Naseem regarding DDAVP Rx renewal request from pharmacy; appears he will be followed by PCP for this but want to be sure before refusing. documented in this encounter Plan of Treatment Not on file documented as of this encounter Visit Diagnoses Not on filedocumented in this encounter Care Teams Senior Sql Database Developer Relationship Specialty Start Date End Date Ceasar Pratt MD PCP - General 04/08/10 05/25/24 documented as of this encounter
--- OUTSIDE RECORDS SUMMARY | 2024-06-08 21:20 | XMS_ITS | Encounter Summary ---
Author Organization [facility] [place] [address] Care Team Providers Care Record Changer Tester Name Role Phone Unavailable Primary Care Provider Unavailabl e Encounter Details Date Type Department Care Team (Late st Contact Info) Description 03/24/2010 8:30 AM EST [place] [address] Gamaliel Denson III, MD [facility] [place] [address] Social History Tobacco Use Types Packs/Day Years Used Date Smoking Tobacco: Never Assessed Sex and Gender Information Value Date Recorded Sex Assigned at Not on file Gender Identity Not on file Sexual Orientation Not on file documented as of this encounter Plan of Treatment Not on file documented as of this encounter Visit Diagnoses Not on filedocumented in this encounter
--- OUTSIDE RECORDS SUMMARY | 2024-06-08 21:20 | XMS_ITS | Encounter Summary ---
Author Organization [facility] [place] [address] Care Team Providers Care Cell Maker Name Role Phone Ceasar Pratt MD Primary Care Provider Unavailab le Reason for Visit * Reason Comments Skin Check Encounter Details Date Type Department Care Team (Late st Contact Info) Description 06/06/2014 10:00 AM EST Office Visit Dermatology at [facility] [address] [place] [address] Jessy Farooq PA Neoplasm of unspecified nature of bone, soft tissue, and skin; Actinic skin damage Discharge Disposition: Home Social History Tobacco Use Types Packs/Day Years Used Date Smoking Tobacco: Former Cigarettes Q uit: 08/16/1975 Smokeless Tobacco: Never Alcohol Use Standard Drinks/Week Comments Yes 2 (1 standard drink = 0.6 oz pur e alcohol) Sex and Gender Information Value Date Recorded Sex Assigned at Not on file Gender Identity Not on file Sexual Orientation Not on file documented as of this encounter Progress Notes * Adele Tyson MD - 06/06/2014 1:47 PM EST I directly supervised Ellen Farooq PA-C during this office visit. Ellen Farooq PA-C presented the history and physical exam to me. I then saw and examined this patient with Ellen Farooq PA-C. We reviewed the history and pertinent details and I confirmed the physical findings. I agree with the de tails of the history and physical exam as documented in Ellen Farooq PA-C's note. ADELE TYSON MD Staff Physician * Jessy Farooq PA - 06/06/2014 10:10 AM EST Images from the original note were not included. DERMATOLOGY - NEW PATIENT CONSULT NOTE Date of service: 06/06/2014 Naseem Flynn : 1940 Dermatology Physician [facility] Physician Note: Jessy Farooq PA-C (Bri) Chief Complaint Patient presents with ??? Skin Check Naseem Flynn is a 74 y.o. male. This is a new patient to me and to the clinic. Seen in consultation at the request of Self specifically for the evaluation and management of the above problem. HPI: Mr. Flynn presents for facial skin cancer examination. C/o asymptomatic brown lesions on the face. One brown lesion on left cheek that he feels has gradually grown over years, has been present for several years. Past Skin History: Denies history skin cancer/skin disease Medical History: There is no problem list on file for this patient. No Defibrillator/pacemaker/anti-coagulants Medications: Current Outpatient Prescriptions on File Prior to Visit Medication Sig Dispense Refill ??? multivitamin (THERAGRAN) tablet Take 1 tablet by mouth every other day. ??? [place]-3 Fatty Acids (FISH OIL) 300 mg Cap Take by mouth daily. Unsure of dosage ??? desmopressin (DDAVP) 0.1 mg tablet Take 1 tablet by mouth 2 times daily. 180 tablet 3 ??? sildenafil (VIAGRA) 100 mg tablet No current facility-administered medications on file prior to visit. 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 Skin: An abbreviated skin examination was performed. This includes the head, neck, face and scalp including behind the ears. Specific skin findings: 1. Diffuse actinic skin damage on scalp and forehead. 2. Left lateral cheek, 0.4 x 0.5 cm well-circumscribed dark brown macule with milia on dermoscopy Diagnosis/Assessment/Treatment Plan: 1. Diffuse Actinic Damage-Discussed importance of sun protection, sun avoidance strategies, protective clothing, and sunscreen. 2. Solar lentigo w/features of SK r/o atypical pigmented lesion Procedure: Skin biopsy by shave technique Location: Left lateral cheek Discussed indications for procedure and expectations including risks and benefits. Verbal consent obtained. Skin prep with alcohol. Local anesthesia with 1% xylocaine, 1/100,000 epinephrine, 0.1 mEq/mL bicarbonate. A sample of the lesion was removed by shave technique to the level of the dermis andsubmitted to Pathology. Hemostasis obtained (AlCl and/or electrocautery). There were no complications; the pt. tolerated the procedure well. The wound was dressed. Post-procedure expectations, wound care and activity restrictions were reviewed. RTC pending pathology, full skin cancer examination 6 months. Instructed to call with questions or concerns. Note initiated by NOÉ ÁLVAREZ LPN I am documenting this encounter acting as the scribe for and in the presence of Jessy Farooq PA-C (Bri) I performed the above scribed service and agree with the accuracy of the documentation in this encounter. Reviewed and signed by Jessy Farooq PA-C (Bri) Dermatology [facility] Patient seen and evaluated with staff tax investigator: Adele Tyson MD Section of Dermatology [facility] documented in this encounter Plan of Treatment Not on file documented as of this encounter Procedures Procedure Name Priority Date/Time Associated Diagnosis Comments SPECIMEN TO PATHOLOGY (NON-OR) Routine 06/06/2014 10:31 AM EST Neoplasm of unspecified nature of bone, soft tissue, and skin SURGICAL PATHOLOGY REPORT Routine 06/06/2014 10:30 AM EST documented in this encounter Results * Specimen to Pathology (NON-OR) (06/06/2014 10:31 AM EST) AP Specimen 06/06/2014 10:3 1 AM EST 06/06/2014 10:31 AM EST Narrative LEONCIO MARQUES - 06/06/2014 10:31 AM EST Specimen requisition ordered. ??Separate Pathology report to follow Adele Tyson MD PATHOLOGY/CYTOLOGY O TIO LEONCIO MARQUES * Surgical Pathology Report (06/06/2014 10:30 AM EST) Final Diagnosis ? [facility] ? Provider: ?? JESSY FAROOQ ??Pt. Name: ?? NASEEM FLYNN ? Acc #: ?[id number] ? Pt. ? Col Date: ?? 06/06/2014 ? /Sex: ?1940,(74 years),Male ? Rec Date: ?? 06/06/2014 ? LOC: ?[facility] ? SURGICAL PATHOLOGY ? ---Pathologic Diagnosis--- ? Skin, left lateral cheek, shave biopsy only: ?Seborrheic keratosis, pigmented ? Dictated by: ??Alex Garza, DO ? Dermatopathology Fellow ? As the attending physician, I attest that I examined the histologic slides, ? and confirm Dr. Alex Garza's diagnosis. ? CR-0 ? 06/07/14 ? BJM ? 06/07/14 Verified by: ? Zeferino CONTRERAS, PhD, Veronica ? Dermatopathologist ? (Electronic Signature) ? The attending pathologist whose signature appears on this report has ? reviewed all diagnostic slides and has edited the gross and/or ? microscopic portion of the report in rendering the final pathologic ? diagnosis. ? ---Gross Description--- ? A - Labeled/Fixative: Patient demographics, formalin. ? Quantity/Size: Single, 0.5 x 0.5 x 0.1 cm. ? Tissue Description: Shave of a brown, finely granular skin papule. ? Sections/Processing: Inked and bisected. (T1) ??sns ? ---Clinical Information--- ? Specimen Submitted: ? A - Skin, left lateral cheek, shave biopsy ONLY (1) ? Clinical History: ? 0.4 x 0.5 cm dark brown macule with milia ? Clinical Diagnosis: ? Seborrheic keratosis, rule out atypical pigmented lesion 06/07/2014 12:31 PM EST [facility] SPECIMEN FROM SKIN / Unknown 06/06/2014 10:30 AM EST 06/06/2014 10:30 AM EST Jessy CALIX PATHOLOGY/CYTOLOGY ORDERABLES Performing Organization Address City/State/[facility] Co me Phone Number [facility] [place] [address] documented in this encounter Visit Diagnoses Diagnosis Neoplasm of unspecified nature of bone, soft tissue, and skin Actinic skin damage Other chronic dermatitis due to solar radiation documented in this encounter Care Teams Cell Maker Relationship Specialty Start Date End Date Ceasar Pratt MD PCP - General 04/08/10 05/25/24 documented as of this encounter
--- OUTSIDE RECORDS SUMMARY | 2024-06-08 21:20 | XMS_ITS | Encounter Summary ---
[place] [address] Care Team Providers Care Visitor Services Assistant Name Role Phone Ceasar Pratt MD Primary Care Provider Unavailab le Encounter Details Date Type Department Care Team (Late st Contact Info) Description 04/16/2010 4:00 PM EST [place] [id number] Dori Cast MD Discharge Disposition: Home Social History Tobacco Use [...] on filedocumented in this encounter Care Teams Visitor Services Assistant Relationship Specialty Start Date End Date Ceasar Pratt MD PCP - General 04/08/10 05/25/24 documented as of this encounter
--- OUTSIDE RECORDS SUMMARY | 2024-06-08 21:20 | XMS_ITS | Encounter Summary ---
Author Organization [facility] [place] [address] Care Team Providers Care Dowel Inspector Name Role Phone Ceasar Pratt MD Primary Care Provider [facility] Encounter Details Date Type Department Care Team (Latest Contact Info) Description 09/14/2012 9:47 AM EDT - 09/14/2012 12:30 PM EDT Hospital Encounter [place] [address] He Garcia MD [facility] [place] [address] Matt Rasheed MD [facility] [place] [address] Discharge Disposition: Home Social History Tobacco Use [...] Sign Reading Time Taken Comments Blood Pressure 111/61 09/14/2012 12:10 PM EDT Pulse 63 09/14/2012 12:10 PM EDT Temperature - - Respiratory Rate 16 09/14/2012 12:10 PM EDT Oxygen Saturation 98% 09/14/2012 12:10 PM EDT Inhaled Oxygen Concentration - - Weight - - Height - - Body Mass Index - - documented in this encounter Discharge Instructions * Discharge Instructions* Mary Dia RN - 09/14/2012 11:44 AM EDT Colonoscopy and polyp removal What to expect after the procedure You may feel a little more gassy or bloated than usual, this is normal. You should expect the return of normal bowel function in the next 2 to 3 days. Because some polyps were removed, you may see a little blood with the next few bowel movements, this should be a small amount ( less than a few tablespoons) and will resolve on it's own. ACTIVITY Because of the sedation that you received Your judgement and reaction time are effected ?? Go home and rest for the remainder for the day. You may resume your normal activities tomorrow ?? Change from one position to the next slowly because you may lose your balance unexpectedly. ?? Be careful on stairs, as you may be unsteady. FOR THE NEXT 24 HRS ?? DO NOT DRIVE OR OPERATE MACHINERY ?? DO NOT DRINK ALCOHOLIC BEVERAGES ?? DO NOT SIGN LEGAL DOCUMENTS ?? If you are a smoker: DO NOT SMOKE WHILE YOU ARE ALONE Diet ?? Start by eating small portions of foods that ordinarily will not upset your stomach, avoid gas producing foods for the next few days. ?? Be gentle with what you choose to start with ?? A soft diet may be helpful for the next 3 days as this may help to keep your stools soft. ?? Drink plenty of fluids ( unless your doctor has told you not to). Medicines Avoid medicines that influence the way your blood clots for the next week. These would include anti-inflammatory medicine, such as ibuprofen( Advil, Motrin) and naproxen ( Aleve). If you need something for discomfort, Tylenol (Acetaminophen) is safe if used as directed. Your Doctor will tell you when to restart your prescribed blood thinners The IV site-- slight tenderness, or redness is normal, you can use warm compresses if you get concerned. If the tenderness +/or redness increases or foul drainage and a red streak occurs, please contact your PCP immediately. When should you call for help? Call 911 anytime you think you may need emergency care. For example If you pass out (loss of consciousness) If you pass maroon or bloody stools If you have severe belly pain Call your healthcare provider or seek immediate medical care if: Your stools are black or tar like Your stools have streaks of blood that is more pronounced with each BM You have belly pain, or your belly is swollen and firm You vomit You have a fever You are very dizzy Watch closely for changes in your health, and be sure to contact your doctor if you have any problems. Your Doctor will let you know when you will need your next colonoscopy. The results of your test and your risk for colorectal cancer will help your doctor decide how often you need to be checked. [facility] [phone] 8a-5p Same Day Endo [phone] 7a-8p Otherwise contact [phone] and ask to speak to the loss control representative sprinkler irrigation equipment mechanic Follow up care is a west part of your treatment and safety. Be sure to make and go to all appointments, and call your doctor if you are having problems. Discharge instructions reviewed with patient who expresses understanding * Attachments The following attachments cannot be sent through Care Everywhere. * COLON POLYPS: AFTER YOUR VISIT (MARSHALLESE) documented in this encounter Medications at Time of Discharge Medication Sig Dispensed Refills Start Date End Date multivitamin (THERAGRAN) tablet Take 1 tablet by mouth every other day. [place]-3 Fatty Acids (FISH OIL) 300 mg Cap Take by mouth daily. Unsure of dosage desmopressin (DDAVP) 0.1 mg tablet Take 1 tablet by mouth 2 times daily. 180 tablet 3 09/14/2012 sildenafil (VIAGRA) 100 mg tablet 04/16/2010 documented as of this encounter H&P Notes * Jaswinder Wren - 09/14/2012 10:32 AM EDT Patient Name: Naseem Flynn Patient Age: 72 y.o. Birthdate: 1940 Admit date: 09/14/2012 Attending Physician: Matt Rasheed MD Gastroenterology & Hepatology Pre-Procedure History and Physical Procedure: Colonoscopy Indication: screening History of Present Illness: Naseem Flynn is a 72 y.o. male here for screening. Previous normal colonoscopy more than 10 years ago. No new symptoms, pain or bleeding Medications: Reviewed in EDH No Known Allergies Social History/Family History: Reviewed in EDH. No changes Exam: Filed Vitals: 09/14/12 1013 BP: 121/74 Pulse: 60 Resp: 16 GEN: NAD, AAOX3 HEENT: NC/AT dryMM, anicteric Chest: CTAB Heart: RRR, nl s1, s2 Abdomen: normal bowel sounds, soft, non tender Assessment and Plan: Proceed with Colonoscopy: ASA Grade: ASA 1 - Normal health patient Sedation plan: Moderate Conscious sedation Risks and benefits of the procedure were discussed with the patient. Consent has been signed. documented in this encounter Miscellaneous Notes * Miscellaneous - Provider, Scanning - 09/14/2012 10:28 PM EDT * Miscellaneous - Provider, Scanning - 09/14/2012 12:15 PM EDT documented in this encounter Plan of Treatment Not on file documented as of this encounter Procedures Procedure Name Priority Date/Time Associated Diagnosis Comments SURGICAL PATHOLOGY REPORT Routine 09/14/2012 1:45 PM EDT SPECIMEN TO PATHOLOGY Routine 09/14/2012 11:25 AM EDT COLONOSCOPY, POLYPECTOMY, REMOVAL LESION BY SNARE (WRVU 4.57) 09/14/2012 10:36 AM EDT screening COLONOSCOPY Routine 09/14/2012 10:28 AM EDT documented in this encounter Results * Surgical Pathology Report (09/14/2012 1:45 PM EDT) Surgical Pathology Report ? [facility] ? Provider: ?? MATT RASHEED ?Pt. Name: ?? NASEEM FLYNN ? Acc #: ?[id number] ?Pt. ? Col Date: ?? 09/14/2012 ?/Sex: ?1940,([age] years),Male ? Rec Date: ?? 09/14/2012 ?LOC: ?4T ? SURGICAL PATHOLOGY ? ---Pathologic Diagnosis--- ? Endoscopic biopsy - Tubular adenoma. ? Cr-PX ? 09/15/12 ? AAS ? 09/15/12 Verified by: ? Sahra Zuñiga MD ? Pathologist ? (Electronic Signature) ? The attending pathologist whose signature appears on this report has ? reviewed all diagnostic slides and has edited the gross and/or ? microscopic portion of the report in rendering the final pathologic ? diagnosis. ? ---Gross Description--- ? A- Labeled/Fixativ e: 2 mm cecal polyp snared, formalin. ?Quantity/Size : Single, 0.3 x 0.2 x 0.2 cm. ?Tissue Description: Soft, yellow-rivers tissue. ?Sections/Proc essing: (T1) ??ejr ? ---Clinical Information--- ? Specimen Submitted: ? A - 2mm cecal polyp snared ? Clinical History: ? Patient with polyps ? Clinical Diagnosis: ? [facility] 09/14/2012 1:45 PM EDT Matt Rasheed MD PATHOLOGY/CYTOLOGY O TIO Performing Organization Address [facility] Co de Phone Number LEONCIO MARQUES * Specimen to Pathology (surgical or derm) (09/14/2012 11:25 AM EDT) AP Specimen 09/14/2012 11:2 5 AM EDT 09/14/2012 11:25 AM EDT Narrative LEONCIO SANCHEZIUM - 09/14/2012 11:25 AM EDT Specimen requisition ordered. ??Separate Pathology report to follow Matt Rasheed MD PATHOLOGY/CYTOLOGY O TIO Performing Organization Address City/[facility] Co de Phone Number LEONCIO MARQUES * COLONOSCOPY (09/14/2012 10:28 AM EDT) COLONOSCOPY [facility] Patient Name: Naseem Flynn ? Procedure Date: 09/14/2012 10:28 AM ? N: [id number] ? Date of : 1940 ? Age: 72 ? Order #: [id number] ? Procedure: ? Colonoscopy Indications: ? Screening for colorectal malignant ? neoplasm Providers: ? Matt Rasheed MD, Shalonda Bonner, ? RN, Samantha Pollard, Cardiac Nurse Practitioner, ? Jaswinder Wren MD Referring MD: ?Ceasar Pratt MD Medicines: ? Midazolam 4 mg IV, Fentanyl 175 ? micrograms IV Complications: ? No immediate complications. Procedure: ? Pre-Anesthesia Assessment: ? - ASA Grade Assessment: I - A normal, ? healthy patient. ? The procedure, indications, benefits, ? risks [...] the ? colonoscope was withdrawn. The ? colonoscopy was performed without ? difficulty. The patient tolerated the ? procedure well. The quality of the ? bowel preparation was excellent. ? Scope withdrawal time was 16 minutes. ? Findings: ? A sessile polyp was found in the cecum. The polyp was ? 2 mm in size. The polyp was removed with a cold ? snare. Resection and retrieval were complete. ? Multiple small and large-mouthed diverticula were ? found in the sigmoid colon and in the descending ? colon. The terminal ileum appeared normal. A sessile ? polyp was found in the cecum. The polyp was 2 mm in ? size. The polyp was removed with a cold snare. ? Resection and retrieval were complete. Multiple small ? and large-mouthed diverticula were found in the ? sigmoid colon and in the descending colon. The ? terminal ileum appeared normal. A sessile polyp was ? found in the cecum. The polyp was 2 mm in size. The ? polyp was removed with a cold snare. Resection and ? retrieval were complete. Multiple small and ? large-mouthed diverticula were found in the sigmoid ? colon and in the descending colon. The terminal ileum ? appeared normal. ? Impression: ?- One 2 mm polyp in the cecum. ? Resected and retrieved. ? - Diverticulosis in the sigmoid colon ? and in the descending colon. ? - The examined portion of the ileum ? was normal. Recommendation: ?- Await pathology results. ? _ Matt Rasheed MD 09/14/2012 11:27 AM This report has been signed electronically. Number of Addenda: 0 Note Initiated On: 09/14/2012 10:28 AM PROVATION 09/14/2012 10:2 8 AM EDT Ceasar Pratt MD GENERAL SURGICAL ORD ERABLES PROVATION documented in this encounter Visit Diagnoses Not on filedocumented in this encounter Active and Recently Administered Medications Times are shown in EDT. PRN Medication Order 09/12/2012 09/13/2012 09/14/2012 fentaNYL 50mcg/mL injection (CANCELED) ONCE PRN, Starting on Wed09/14/12 at 1044, Until Wed09/14/12 at 1755, Pain, Intra-Operative (Intra-Procedure), Routine 1044 (Given - Provid er: Shalonda Bonner RN)1047 (Given - Provider: Shalonda Bonner RN)1050 (Given - Provider: Shalonda Bonner RN)1055 (Given - Provider: Shalonda Bonner RN) midazolam (VERSED) injection (CANCELED) ONCE PRN, Starting on Wed09/14/12 at 1044, Until Wed09/14/12 at 1755, Sleep, Intra-Operative (Intra-Procedure), Routine 1044 (Given - Provid er: Shalonda Bonner RN)1047 (Given - Provider: Shalonda Bonner RN)1050 (Given - Provider: Shalonda Bonner RN)1055 (Given - Provider: Shalonda Bonner RN) documented in this encounter Care Teams Dowel Inspector Relationship Specialty Start Date End Date Ceasar Pratt MD PCP - General 04/08/10 05/25/24 documented as of this encounter
--- OUTSIDE RECORDS SUMMARY | 2024-06-08 21:20 | XMS_ITS | Encounter Summary ---
Author Organization [facility] [place] [address] Care Team Providers Care Wagon Driver Name Role Phone Ceasar Pratt MD Primary Care Provider Unavailab le Encounter Details Date Type Department Care Team (Late st Contact Info) Description 06/07/2014 Telephone Dermatology at [facility] [address] [place] [id number] Jessy Farooq PA Social History Tobacco Use Types Packs/Day Years [...] encounter Miscellaneous Notes * Telephone Encounter - Jessy Farooq PA - 06/07/2014 3:20 PM EST Discussed benign nature of lesion with patient. Patient verbalized understanding. Wound care reviewed. No further action necessary. Patient will return in 6 months for full skin exam. See path report below. SURGICAL PATHOLOGY ---Pathologic Diagnosis--- Skin, left lateral cheek, shave biopsy only: Seborrheic keratosis, pigmented Dictated by: Alex Garza DO Dermatopathology Fellow documented in this encounter Plan of Treatment Not on file documented as of this encounter Visit Diagnoses Not on filedocumented in this encounter Care Teams Wagon Driver Relationship Specialty Start Date End Date Ceasar Pratt MD PCP - General 04/08/10 05/25/24 documented as of this encounter
--- OUTSIDE RECORDS SUMMARY | 2024-06-08 21:20 | XMS_ITS | Encounter Summary ---
Author Organization [facility] Address [address] [place] [address] Care Team Providers Care Fence Builder Name Role Phone Alexis Jung DO Primary Care Provider [phone] Encounter Details Date Type Department Care Team (Latest Contact Info) Description 10/13/2019 Travel Social History Tobacco Use Types Packs/Day Years [...] 20:41 EDT documented as of this encounter Plan of Treatment Not on file documented as of this encounter Visit Diagnoses Not on filedocumented in this encounter Care Teams Fence Builder Relationship Specialty Start Date End Date Alexis Jung DO [address] [place] [address] PCP - General 10/13/19 07/13/21 documented as of this encounter
--- OUTSIDE RECORDS SUMMARY | 2024-06-08 21:20 | XMS_ITS | Encounter Summary ---
[place] [address] Care Team Providers Care Soaker Name Role Phone Ceasar Pratt MD Primary Care Provider Unavailab le Reason for Visit * Reason Comments Medication Refill Encounter Details Date Type Department Care Team (Late st Contact Info) Description 03/25/2011 Refill Neph[place] [address] Umair Tompkins MD CKD (chronic kidney disease) (Primary Dx) Social History Tobacco Use Types Packs/Day Years Used Date Smoking Tobacco: Never Assessed Sex and Gender Information Value Date Recorded Sex Assigned at Not on file Gender Identity Not on file Sexual Orientation Not on file documented as of this encounter Plan of Treatment Not on file documented as of this encounter Visit Diagnoses Diagnosis CKD (chronic kidney disease)- Primary Chronic kidney disease, unspecified documented in this encounter Care Teams Soaker Relationship Specialty Start Date End Date Ceasar Pratt MD PCP - General 04/08/10 05/25/24 documented as of this encounter
--- OUTSIDE RECORDS SUMMARY | 2024-06-08 21:20 | XMS_ITS | Encounter Summary ---
[place] [address] Care Team Providers Care Elementary Principal Name Role Phone Ceasar Pratt MD Primary Care Provider Unavailab le Encounter Details Date Type Department Care Team (Late st Contact Info) Description 04/16/2010 1:15 PM EST Procedure visit [facility] [place] [address] Social History Tobacco Use Types Packs/Day Years Used Date Smoking Tobacco: Never Assessed Sex and Gender Information Value Date Recorded Sex Assigned at Not on file Gender Identity Not on file Sexual Orientation Not on file documented as of this encounter Plan of Treatment Not on file documented as of this encounter Visit Diagnoses Not on filedocumented in this encounter Care Teams Elementary Principal Relationship Specialty Start Date End Date Ceasar Pratt MD PCP - General 04/08/10 05/25/24 documented as of this encounter
--- OUTSIDE RECORDS SUMMARY | 2024-06-08 21:20 | XMS_ITS | Encounter Summary ---
Author Organization [facility] Address [address] [place] [address] Care Team Providers Care Manager Merchandising Name Role Phone ErichAlexis castro Primary Care Provider [phone] Reason for Visit * Reason Comments Chest Pain * Auth/Cert Specialty Diagnoses / Procedures Referred By Abhishek schofield Referred To Contact Diagnoses NSTEMI (non-ST elevated myocardial infarction) ([facility]) NSTEMI (non-ST elevated myocardial infarction) ([facility]) NSTEMI Referral ID Status Reason Start Date Expiration Date Visits Re quested Visits Authorized [id number] 1 1 Encounter Details Date Type Department Care Team (Late st Contact Info) Description 10/14/2019 12:00 EDT - 10/14/2019 13:00 EDT Surgery [facility] In[facility] Cardiology Unit [address], [place] [id number] Christiano Montgomery MD [address] [place] [address] [place] [address] Left Heart Cath Surgery Details Date/Time Status Location OR Service Patient Class Case Class Case Type Trauma Case? 10/14/2019 1200 Posted [facility] Patient Account Representative Patient Account Representative 1 Cardiovascular Inpatient Panel 1 Procedure LRB Anes Op Region Wound Class Comments Left Heart Cath Left Chest Percutaneous Coronary Intervention N/A None Chest Surgeon Surgeon Role Service Panel Christiano Montgomery MD Primary Cardiovascular 1 Marilee Muñoz MD Fellow Interventional Cardiology 1 documented in this encounter Social History Tobacco Use Types Packs/Day Years [...] 20:41 EDT documented as of this encounter Last Filed Vital Signs Vital Sign Reading Time Taken Comments Blood Pressure 143/77 10/14/2019 1300 EDT Pulse 67 10/14/2019 1207 EDT Temperature 36.6 ??C (97.9 ??F) 10/14/2019 0909 EDT Respiratory Rate 16 10/14/2019 0909 EDT Oxygen Saturation 98% 10/14/2019 1300 EDT Inhaled Oxygen Concentration - - Weight 97.5 kg (215 lb) 10/14/2019 0909 EDT Height 170.2 cm (5' 7) 10/14/2019 0909 EDT Body Mass Index 33.83 10/14/2019 0909 EDT documented in this encounter Functional Status * Are you blind or do you have serious difficulty seeing, even when wearing glasses? Answer Date of Assessment Author Yes 10/13/2019 22:00 EDT Saurav Killian RN documented as of this encounter Discharge Summaries * Levar Cortés MD - 10/15/2019 0954 EDT Cardiology Discharge Summary Primary Care Provider: Alexis Jung Attending Physician: Kentrell Byrne MD Admit Date: 10/13/2019 Discharge Date: 10/15/19 Disposition: Home or self care Problems and Procedures Admitting Diagnosis: NSTEMI (non-ST elevated myocardial infarction) ([facility]) Final Hospital Diagnosis: NSTEMI Additional Problems Managed in the Hospital Active Hospital Problems Diagnosis Date Noted ??? *NSTEMI (non-ST elevated myocardial infarction) ([facility]) 10/13/2019 Resolved Hospital Problems No resolved problems to display. Principal Procedure: [facility] 10/14/2019 Left main: nl Left anterior descendin% prox, 70% distal and apical Left circumflex: 100% distal Right coronary artery: 80% prox Grafts: n/a Interventions: ZACHERY x1 dLCx, ZACHERY x1 LAD, ZACHERY x1 RCA Secondary Procedures: TTE 10/14/2019 1. Left ventricle: Cavity size normal. Mild LVH. Systolic function was normal with an ejection fraction of 55-60%. Possible hypokinesis of the basal-mid posterolateral wall. 2. Right ventricle: Cavity size normal. Wall thickness normal. Systolic function normal. 3. Aortic valve: There was mild to moderate aortic valve regurgitation. 4. Mitral valve: There was mild mitral regurgitation. Hospital Course William Cadena is a 79 y.o. male with a PMHx significant for DI and anxiety who presented initially to [facility] with chest pain for 2 days. Patient described non-exertional chest pain, worse laying flat. Troponin at OSH was 4.98 with no ischemic EKG changes. He was transferred to [facility] for management of NSTEMI. On arrival, patient was hemodynamically stable and chest- pain free on nitroglycerine gtt. Troponin up-trended and peaked at 23.7. Echocardiogram revealed an EF of 55-60%, with moderate aortic regurgitation. Patient received stent to the LCx, LAD, and RCA with good result. He remained hemodynamically stable and without eventson telemetry and by the morning of 10/14 was medically stable for discharge home. 1. CAD o Start ASA 81 mg daily o Start Plavix 75 mg daily o Start Rosuvastatin 20 mg daily o Start Metoprolol tartrate 12.5 mg BID o Follow-up with Cardiology o Follow-up with PCP in 3-10 days Allergies and Immunizations No Known Allergies There is no immunization history on file for this patient. Transition of Care Plans Condition at Discharge Improved Assessment at Discharge Vitals and physical exam stable for discharge. Is the patient being discharged with a diagnosis of Systolic Heart Failure? No Coumadin Management N/A Non-Cardiac Studies at Time of Discharge None Results Pending at Discharge Test results still pending from this admission Procedure Component Value Units Date/Time Hemoglobin A1c [[id number]] Collected: 10/13/192055 Lab Status: In process Specimen: Blood, Venous Updated: 10/13/192133 Last Lab Results at Discharge Creatinine: Lab Results Component Value Date CREATININE 0.94 10/15/2019 Electrolytes: Lab Results Component Value Date NA 135 (L) 10/15/2019 K 4.2 10/15/2019 CL 105 10/15/2019 CO2 24 10/15/2019 No components found for: NTPROBNP No results found for: HGBA1C Discharge Follow Up Follow-up appointments and procedures Amb Consult/Follow Up Primary Care Physician Reason for Request: Hospital follow up post NSTEMI Authorizing Provider: Levar Cortés MD Amb Consult/Follow Up Cardiology Reason for Request: Hospital follow up NSTEMI Authorizing Provider: Levar Cortés MD Joshua D Zimmer, MD 10/15/2019 9:55 Cosigned by Christiano Montgomery MD at 10/16/2019 9:46 EDT Associated attestation - Christiano Montgomery MD - 10/16/2019 0946 EDT Attestation statement: I discussed the patient with the resident/fellow at the time of the visit. Iagree with the findings and the plan of care documented in the resident's/fellow's note. documented in this encounter Medications at Time of Discharge aspirin 81 mg EC tablet Take 1 Tab by mouth daily. 90 Tab 3 10/16/2019 desmopressin (DDAVP) 0.1 mg tablet Take 2 Tablets by mouth daily. LORazepam (ATIVAN) 1 mg tablet Take 1 Tablet by mouth every 4 hours as needed for Anxiety. clopidogreL (PLAVIX) 75 mg tablet Take 1 Tab by mouth daily. 90 Tab 3 10/16/2019 05/13/2020 metoprolol (LOPRESSOR) 25 mg tablet Take 0.5 Tabs by mouth 2 times daily. 90 Tab 1 10/15/2019 11/28/2019 nitroGLYCERIN (NITROSTAT) 0.[address] 1 Tab under the tongue every 5 minutes as needed for Chest Pain. 5 Tab 10/15/2019 01/14/2021 rosuvastatin (CRESTOR) 20 mg tablet Take 1 Tab by mouth daily. 90 Tab 3 10/16/2019 05/13/2020 documented as of this encounter Ordered Prescriptions Prescription Sig Dispense Quantity Refills Last Filled Start Date End Date aspirin 81 mg EC tablet Take 1 Tab by mouth daily. 90 Tab 3 10/16/2019 nitroGLYCERIN (NITROSTAT) 0.[address] 1 Tab under the tongue every 5 minutes as needed for Chest Pain. 5 Tab 10/15/2019 1 rosuvastatin (CRESTOR) 20 mg tablet Take 1 Tab by mouth daily. 90 Tab 3 10/16/2019 0 metoprolol (LOPRESSOR) 25 mg tablet Take 0.5 Tabs by mouth 2 times daily. 90 Tab 1 10/15/2019 0 clopidogreL (PLAVIX) 75 mg tablet Take 1 Tab by mouth daily. 90 Tab 3 10/16/2019 0 documented in this encounter Discharge Disposition Disposition Code Departure Means Destination Home or Self Skilled Nursing documented in this encounter Progress Notes * Leavr Killian RN - 10/15/2019 0135 EDT Admit Date: 10/13/2019 Date of Service: 10/15/2019 PCP: Alexis Jung Code Status: Full Code Blood pressure 138/81, pulse 70, temperature 35.9 ??C (96.6 ??F), temperature source Tympanic, resp. rate 16, height 170.2 cm (67), weight 97.5 kg (215 lb), SpO2 98 %. Data: LOS: 2, Pt admitted for NSTEMI (non-ST elevated myocardial infarction) ([facility]), pt is a/o x3, movement: independent, events: NAEO, rhythm: NSR, plan: D/C Action: medications given per JUL, monitored tele per protocol Response: pt slept well with NAEO, Will continue to monitor and adjust interventions as necessary. * Juwan Cox MD - 10/14/2019 4179 EDT Cardiology Progress note Service Date: 10/14/2019 Admit Date: 10/13/2019 20:31 Reason for Admission: 79 y.o. male admitted chest pain Events/ Procedures in the last 24 Hours: LHC w PCI dLCX, LAD and RCA Subjective/Objective Subjective William feels well and CP has resolved. Otherwise, good appetite and denies any SOB, palpitations, dizziness/lightheadedness, abdominal pain, nausea, vomiting, diarrhea, constipation, or headache. Review of Systems Pertinent items are noted in Subjective/HPI Objective Vital Signs Patient Vitals for the past 8 hrs: BP Pulse Heart Rate Resp Temp SpO2 O2 Device 10/14/19 1226 141/78 -- 63 BPM -- -- 97 % None 10/14/19 1207 (!) 146/74 67 -- -- -- 97 % -- 10/14/19 0909 (!) 145/78 -- 66 BPM 16 36.6 ??C (97.9 ??F) 97 % None 10/14/19 0451 118/63 64 63 BPM 16 36.4 ??C (97.5 ??F) 96 % None Weight: Patient Vitals for the past 8 hrs: Weight 10/14/19 0909 97.5 kg (215 lb) Intake/Output Summary (Last 24 hours) at 10/14/2019 1237 Last data filed at 10/14/2019 1207 Gross per 24 hour Intake 867.45 ml Output -- Net 867.45 ml Physical Exam Gen: Lying in bed in NAD, breathing comfortably on room air; alert and appropriately responsive to questions HEENT: NCAT, EOMI, PERRL, MMM, no scleral icterus Neck: supple, no JVD CV: RRR, no m/r/g Pulm: CTAB, good air movement, no w/r/r Abd: +BS, soft, NTND, no HSM Extrem: warm and well perfused, no cyanosis or edema Pulses: 2+ in all four extremities Neuro: alert/oriented x3; no focal neurologic deficits appreciated Skin: no rashes, no jaundice. RR cath site C/D/I, no hematoma Lines: PIV Is PICC or central line present? No, PICC/Central line not present. Medications Reviewed Labs Reviewed CBC: Recent Labs 10/13/19204810/14/19 0520 WBC 7.22 7.39 HGB 14.3 13.5* HCT 40.7 39.7 MCV 89 89 PLT 168 152 BMP: Recent Labs 10/13/19204810/14/19 0520 CREATININE 1.03 0.98 BUN 25 -- NA 137 137 K 4.0 3.8 CL 107 108 CO2 22 23 MG 2.0 -- Coags: Recent Labs 10/13/192048 PROTIME 12.1 INR 1.0 PTT 111* LFTs: No results for input(s): ALT, AST, GGT, ALKPHOS, TBIL in the last 72 hours. Cardiac Biomarkers: Recent Labs 10/13/19204810/14/19 0520 TROPONINI 3.930* 5.520* Lipids: Recent Labs 10/13/192055 CHOL 182 TRIG 119 HDL 36 LDLBASE 122 CHOLHDL 5.1 Assessment/Plan Assessment/Plan William Cadena is a 79 y.o. male with a PMHx significant for DI and anxiety who presented initially to [facility] with chest pain. Underwent LHC 10/13 and dLCX vessel was stented using a 2.75x16 ZACHERY. THe LAD stented with a 3.5x28 ZACHERY and the RCA stented with a 4x16 ZACHERY. Now CP free. NSTEMI: LHC showed LAD 80%, LCx 100%, RCA 80%. S/p stent to all three vessels. TTE EF 50-55%. -ASA 81 mg daily -Plavix 75 mg daily -Metoprolol 12.5 mg BID -Rosuvastatin 20 mg daily -Cycle troponin to peak ?? 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 rate 18, height 170 cm (66.93), weight 94.5 kg (208 lb 5.4 oz), SpO2 97 %. Data: LOS: 1, Pt admitted for NSTEMI (non-ST elevated myocardial infarction) ([facility]), pt is a/o x3, movement: independent, events: NAEO, rhythm: NSR, plan: NPO for [facility] on 10/13 Action: medications given per MAR, monitored tele per protocol, HEP AND NITRO gtt maintained per protocol Response: pt slept well with NAEO, Will continue to monitor and adjust interventions as necessary. * Christiano Montgomery MD - 10/14/2019 0000 EDT October 14, 2019 Alexis Jung DO [address] [place] [address] Dear Juan Francisco: I am writing in regards to William Cadena. Briefly, he is a 79-year-old gentleman without prior cardiac history, who presented with new onset chest pain and ruled in for a non-ST segment elevation OR. Today, we brought William to the cardiac boat laborer. Coronary arteriography demonstrated a normal left main. There was a long area of disease involving the proximal LAD. Distally towards the apex, there were 2 discrete areas of 70% stenosis. The circumflex system was notable for 100% occlusion of the distal vessel. The right coronary had an 80% mid stenosis. We opened the circumflex, restoring flow into a couple of posterolateral branches. A single stent was placed into this vessel. We also stented the LAD and the right coronary, all with good results. Ithink the remainder of William's disease could be treated medically with ongoing risk factor modification. We have placed William on dual antiplatelet therapy and I would recommend continuing this for at least the next 6 months. We will try to get him seen at [facility]. As always, I want to thank you for allowing us to participate in your patient's care. We will certainly keep you apprised as to further developments in his hospital course. Sincerely, Christiano Montgomery MD 12 13 PM / Christiano Montgomery MD cn Confirmation: [id number] Dictation ID: [id number] cc:Alexis Jung DO documented in this encounter H&P Notes * Kentrell Byrne - 10/13/20192043 EDT Images from the original note were not included. Cardiology Admission History & Physical Service Date: 10/13/2019 Admit Date: 10/13/2019 20:31 Primary Care Provider: Alexis Jung Chief Complaint: Chest pain HPI William Cadena is a 79 y.o. male with a PMHx of DI and anxiety who presented initially to [facility] with chest pain. Course at [facility]: BP 346/68, HR 66, SpO2 98% on RA, afebrile. Labs notable for WBC 6.9, Hgb 15.3, PLT 193, Na 139, K 3.9, Cr 1.25, troponin 4.98 (normal <0.06), LFTs normal. EKG with sinus rhythm and no acute ischemic changes. CTA chest without evidence of aortic dissection. Patient was loaded with Plavix 600 mg,ASA 324 mg, and heparin. He was also given Labetolol 10 mg IV and started on a NG gtt. Patient reports waking up last night with substernal chest pressure radiating down both arms and tothe neck. He took several tylenol, ibuprofen, and ativan and eventually was able to fall asleep. Hewoke up chest-pain free, but while sitting doing work, chest pain returned. It improved with ambulation and seems to get worse laying flat. Denies associated dyspnea, diaphoresis, nausea, or lightheadedness. No recent fevers, chills, recent GI/URI like illnesses, abdominal complaints. Has never hadsimilar symptoms in the past. On arrival to [facility], patient reports resolution of chest pain. Patient has no known personal or family history HTN, HLD, or DM. Social smoker as a teen, but nothing persistent. Consumes 2 beers 4 days per week. No cocaine or IVDU. EKG: Sinus rhythm, rate 62 Cardiac History ??? None Review of Systems A complete 10 point ROS was performed and pertinent positive and negative findings listed in HPI, otherwise negative. No past medical history on file. No past surgical history on file. Social History Tobacco Use ??? Smoking status: Not on file Substance Use Topics ??? Alcohol use: Not on file No family history on file. No Known Allergies Objective Vitals Temp: [36.5 ??C (97.7 ??F)-36.9 ??C (98.4 ??F)] (), Heart Rate: -- (), Pulse: [59-74] (), Resp: [15-20] (), BP: (129-162)/(71-94) (), SpO2: -- (), Numeric Pain Level (Scale 1-10): 2 Weight : 94.5 kg (208 lb 5.4 oz) Body mass index is 32.7 kg/m??. Physical Exam General: Resting comfortably and conversant. No evidence of uncontrollable pain or active clinical decompensation. HEENT: Normocephalic, atraumatic. Eyes anicteric. MMM. Heart: Regular rate and rhythm. No murmurs appreciated. No peripheral edema or JVD. Lungs: Breathing comfortably on RA. Good air movement to bilateral bases. No wheezes or crackles. Abdomen: Obese. Soft, non-tender, non-distended. Extremities: Warm and well perfused. Neuro: Alert and oriented, answering questions appropriately. Facial movements symmetric. Moving extremities against gravity. Pressure Ulcer Present on admission? No Labs: Reviewed, pertinent studies listed above in HPI. Imaging: Independently reviewed, pertinent studies listed above in HPI. Assessment William Cadena is a 79 y.o. male with a PMHx significant for DI and anxiety who presented initially to [facility] with chest pain. Admitted for NSTEMI and chest pain improved with exertion. Plan NSTEMI: Tn 4.98 at OSH, 3.93 here. No EKG changes. 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 I have reviewed the history and physical exam written by theresident physician. In addition, I have reviewed the plan, have discussed with resident staff, and agree with the plan as written. Jens Byrne MD, #[id number] documented in this encounter Procedure Notes * Christiano Montgomery MD - 10/14/2019 1207 EDT Cardiovascular Catheterization Laboratory Preliminary Report -- Catheterization Date of Service/Procedure: 10/14/2019 Attending Physician: Christiano Montgomery MD Fellow: Marilee Muñoz MD Pre-Procedure Diagnosis /NCDR Indication: William Cadena is a 79 y.o. year old male with ACS > 24 hrs. Chest Pain Symptom Assessment: Typical Angina NCDR Indication for PCI: NSTE - ACS If NOT STEMI or NSTE-ACS, Syntax Score: Intermediate Heart Failure: No CHSA Clinical Frailty Scale: 2: Well Prior Stress Testing? No Anesthesia: A moderate level of anesthesia/conscious sedation was used in addition to local anesthesia. Access: Right radial artery Procedure: He was brought to [facility] for the procedure: Diagnostic coronary/graft angiography and Coronary intervention (PCI). Closure: TR Band Post-Procedure Condition: The condition of the patient was Good. Complications: None. IV Contrast Total: 300 mL X-ray Dose: 601mGy Estimated Blood Loss: Minimal. Unless otherwise noted,there were no specimens removed, cultures obtained, or drains retained. Research Study: Patient is not enrolled in a research study. Diagnostic Cardiac Study Results Left main: nl Left anterior descendin% prox, 70% distal and apical Left circumflex: 100% distal Right coronary artery: 80% prox Grafts: n/a Left Ventriculography and Hemodynamic Results None Endovascular Study Results None Post-Procedure Diagnostic Conclusion: PCI is indicated. Interventional Procedure: Using standard technique, the dLCX vessel was stented using a 2.75x16 ZACHERY. THe LAD stented with a 3.5x28 ZACHERY and the RCA stented with a 4x16 ZACHERY Plan: Aspirin 81mg PO daily. Clopidogrel 75 mg PO daily. At the completion of the procedure, the attending physician has explained the findings, therapies, any complications and treatment plan to the patient. With the patients consent, all family members and patient support persons who were present at the conclusion of the procedure have been notified ofthese results and treatment plans as well. Post Procedure Follow Up: Patient to follow up with [facility] cardiology in 2 weeks Post Interventional Conclusion/Physician Disposition: (check one main category) Inpatient procedure, continue inpatient status (no procedural complication required) Christiano Montgomery MD PagerNumber: [phone] 10/14/2019 12:07 documented in this encounter ED Notes * Rubia Granados - 10/13/20192219 EDT RUBIA Valenzuela, notified Dr. ROMEO of TROPONIN 3.930 on 10/13/2019 at 22:20. * Christiano Benitez - 10/13/20192038 EDT 12 Lead EKG Performed by CHRISTIANO BENITEZ and shown to Donnie Romeo MD. * Diana Garibay RN - 10/13/20192032 EDT NSTEMI TX, PT on heparin @ 1000u/hr, given 324 ASA and 600 of plavix. PT on nitro drip @ 20mcg a/ox4 VSS * Donnie Romeo MD - 10/13/20192032 EDT This patient received an evaluation and medical screening exam for emergent medical conditions at the [facility] on 10/13/2019 Scribe attestation: This documentation is recorded by Kary Ro acting as Scribe under the direction and presence of Donnie Romeo MD. Donnie Romeo MD: I personally performed the services recorded by the scribe in my presence. I confirm the scribe's documentation has been reviewed by me to accurately and completely record my work, treatment, procedures, and medical decision making. HPI William Cadena is a 79 y.o. male with no PMH on file who presents to the ED as a transfer from [facility] for evaluation of NSTEMI. According to outside records, the patient presented today for intermittent, crushing, substernal chest pressure that began last night. Reportedly, the painradiated to his back and bilateral shoulders. EKG at OSH showed [place] depression in 3 and aVF and his CTA showed no aortic dissection. He was given ASA and Plavix. His Troponin was abnormal at 4.98. [facility] was unable to receive the patient so he was transferred here. Patients pertinent PMHincludes HLD and DM. Patient was placed on a Heparin and nitroglycerin infusion en route to the ED. Per patient, his pain is currently ranging from a 1/10 to a 3/10. He denies fever, cough or shortness of breath. Patient denies being swabbed for Covid-19 at OSH. History was provided by: The patient and outside records. Patient's pertinent PMH, FH, SH were reviewed and updated PRN. ROS A 10-point review of systems was performed. The patient answered negative to all questions with theexceptions of those explicitly detailed as positives in the HPI. Pertinent negatives are also explicitly stated. Physical Exam Vital Signs Vitals Reassessment?: Yes Temp: 36.9 ??C (98.4 ??F) Temp src: Oral Pulse: 59 Cardiac Rhythm: Normal sinus rhythm Resp: 20 BP: 129/71 BP MAP: 86 mm Hg BP Device: BP Machine O2 Device: None (Room air) Nursing notes and vital signs were reviewed. Constitutional: Well appearing in no acute distress, hemodynamically stable and afebrile Eyes: Pupils equal and reactive to light, no scleral icterus Mouth: Moist oral mucosa without apparent lesions Neck: Full ROM, no cervical LAD, no JVD Heart: RRR without MRG Lungs: Clear to auscultation Abdomen: Soft NT/ND, positive BS Skin: No overt rashes on exposed skin Extremities: Moving spontaneously, warm and well perfused. Neuro: Grossly neurologically intact with normal speech Psych: No agitation or overt thought disorder Results Labs Reviewed COMPLETE BLOOD COUNT AND DIFFERENTIAL BUN CREATININE ELECTROLYTES TROPONIN I MAGNESIUM SCREENING GLUCOSE HOLD BLUE TOP PROTIME PTT HEMOGLOBIN A1C LIPID PROFILE (INCLUDES CHOLESTEROL, TRIGLYCERIDES, HDL, LDL) NT PRO BNP Data Interpretation An EKG was obtained an independently interpreted: SR with a rate of 62 bpm, no ST elevation, T-waves are upright and axis is normal. Laboratory results independently reviewed, significant for: pending at time of admission. Procedures Procedures Medical Decision Making/ED Course A medical screening exam was performed. In summary, the patient is a 79-year-old man who presents as a transfer from [facility] where he presented with chest pain that has been intermittent since last night. He has no known history of heart disease, but does have a history of hyperlipidemia. Reportedly at the outside hospital he had chest pain that radiated to the back and he underwent a troponin test which was 4.[address] of the aorta. He was started on heparin and nitroglycerin and his pain is improved and nearly resolved. Case was discussed with cardiology and he was transferred here for admission. On exam, he is awake and alert, well- appearing, hemodynamically stable and afebrile. Mucous membranes are moist, heart rate is regular without murmur, lungs clear to auscultation abdomen is soft, nontender nondistended and there are normal bowel sounds. Lower extremities are warm and well-perfused and he exhibits no JVD. Repeat EKG is reassuring and without acute dynamic EKG changes. 2038: Cardiology was consulted for the patient. The patient was admitted to Cardiology under the care of Kentrell Byrne MD. Pain Management While under my care in the Emergency Department, the patient's pain was managed to an adequate level weighing risk vs. benefit of medication. Upon departure from the Emergency Department, the patient's pain was 2 on a zero to ten scale. Any further pain treatment will be at the discretion of the provider following up with the patient based on their clinical assessment. Condition at departure from the Emergency Department: Stable Disposition Disposition decisions were made weighing risks and benefits of hospitalization vs. outpatient treatment, the risk for further decompensation, and the patient???s wishes. - If discharged: the patient was stable, improved, or requested discharge. Prior to discharge my usual and customary return precautions were reviewed with the patient and/or family. This included follow-up instructions and reasons to return to the Emergency Department if condition worsens, does notimprove as expected, or other new concerns arise. - If admitted: the patient???s condition was severe enough to require additional inpatient evaluation and treatment, or the patient was at risk of sudden decompensation. documented in this encounter Miscellaneous Notes * Plan of Care - Gunjan Silvestre RN - 10/14/2019 1021 EDT D: admit for NSTEMI. Hep gtt infusing per protocol. Denies any symptoms upon assessment. SR on tele. VSS. A: assessment and meds as documented. Pt aware of plan of care - seen by Dr. Byrne. R: Remains NPO for [facility]. CTM. documented in this encounter Plan of Treatment Not on file documented as of this encounter Procedures Procedure Name Priority Date/Time Associated Diagnosis Comments ECG REPORT - SCANNED 10/23/2019 7:44 EDT ECG REPORT - SCANNED 10/18/2019 11:39 EDT TROPONIN I Routine 10/15/2019 4:27 EDT COMPLETE BLOOD COUNT Routine 10/15/2019 4:27 EDT CREATININE Routine 10/15/2019 4:27 EDT ELECTROLYTES Routine 10/15/2019 4:[address] OUTSIDE IMAGES CHEST Routine 10/14/19 20 22:22 EDT TROPONIN I Routine 10/14/2019 20:59 EDT TROPONIN I Routine 10/14/2019 12:39 EDT CARDIAC CATHETERIZATION Routine 10/14/19 20 12:13 EDT CARDIAC CATHETERIZATION Routine 10/14/19 20 12:13 EDT POCT ACTIVATED CLOTTING TIME, KAOLIN ISTAT Routine 10/14/2019 11:53 EDT TRANSTHORACIC ECHO (TTE) COMPLETE Routine 10/14/2019 11:00 EDT TROPONIN I Routine 10/14/2019 5:20 EDT HEPARIN LEVEL - UNFRACTIONATED HEPARIN STAT 10/14/2019 5:20 EDT COMPLETE BLOOD COUNT Routine 10/14/2019 5:20 EDT CREATININE Routine 10/14/2019 5:20 EDT ELECTROLYTES Routine 10/14/2019 5:20 EDT HOLD BLUE TOP STAT 10/13/2019 23:40 EDT HEPARIN LEVEL - UNFRACTIONATED HEPARIN STAT 10/13/2019 23:07 EDT ZZCOVID-19 TEST [facility] PCR STAT 10/13/2019 22:23 EDT COVID-19 TESTING STAT 10/13/2019 22:2 3 EDT NT PRO BNP Routine 10/13/2019 20:56 EDT HEMOGLOBIN A1C Routine 10/13/2019 20:56 EDT LIPID PROFILE (INCLUDES CHOLESTEROL, TRIGLYCERIDES, HDL, LDL) Routine 10/13/2019 20:56 EDT SCREENING GLUCOSE STAT 10/13/2019 20: 49 EDT TROPONIN I STAT 10/13/2019 20:49 EDT PTT STAT 10/13/2019 20:49 EDT PROTIME STAT 10/13/2019 20:49 EDT COMPLETE BLOOD COUNT AND DIFFERENTIAL STAT 10/13/2019 20:49 EDT BUN STAT 10/13/2019 20:49 EDT MAGNESIUM STAT 10/13/2019 20:49 EDT CREATININE STAT 10/13/2019 20:49 EDT ELECTROLYTES STAT 10/13/2019 20:49 EDT EKG 12-LEAD STAT 10/13/2019 20:38 EDT documented in this encounter Results * ECG REPORT - SCANNED (10/23/2019 7:44 EDT) 10/23/2019 7:44 EDT us Scan 2 Railway Engineer PROCEDURE/MINOR SURGICAL OR DERABLES Final Result * ECG REPORT - SCANNED (10/18/2019 11:39 EDT) 10/18/2019 11:3 9 EDT us Scan 2 Railway Engineer PROCEDURE/MINOR SURGICAL OR DERABLES Final Result * (ABNORMAL) TROPONIN I (10/15/2019 4:27 EDT) Troponin I (ng/mL) 15.300(H) <0.034 ng/mL 10/15/2019 5:34 EDT [facility] Blood VENOUS BLOOD / Unknown Venipuncture / Unknown 10/15/2019 4:27 EDT 10/15/2019 4:51 EDT Narrative [facility] - 10/15/2019 5:34 EDT The results of this assay can be falsely lowered due to the consumption of Biotin. us Bria Payton MD CHEMISTRY & BLOOD GAS ORDERABL ES Final Result Performing Organization Address [facility] de Phone Number [facility] [address] [place] [address] * CREATININE (10/15/2019 4:27 EDT) Creatinine 0.94 0.66 - 1.25 mg/dL 10/15/2019 5:19 EDT [facility] eGFR 78 >60 mL/min/1.7 3m2 10/15/2019 5:19 EDT [facility] Comment:eGFR calculated dung chandra CKD-EPI equation for non- Americans. Multiply eGFR by 1.16 for patients. Blood VENOUS BLOOD / Unknown Venipuncture / Unknown 10/15/2019 4:27 EDT 10/15/2019 4:51 EDT us Bria Payton MD CHEMISTRY & BLOOD GAS ORDERABL ES Final Result Performing Organization Address [facility] de Phone Number [facility] [address] [place] [phone] * (ABNORMAL) ELECTROLYTES (10/15/2019 4:27 EDT) Sodium 135(L) 136 - 145 mEq/L 10/15/2019 5:19 EDT [facility] Potassium 4.2 3.5 - 5.0 mEq/L 10/15/2019 5:19 EDT [facility] Chloride 105 96 - 110 mEq/L 10/15/2019 5:19 EDT [facility] CO2 Total 24 22 - 32 mEq/L 10/15/2019 5:19 EDT [facility] Blood VENOUS BLOOD / Unknown Venipuncture / Unknown 10/15/2019 4:27 EDT 10/15/2019 4:51 EDT us Bria Payton MD CHEMISTRY & BLOOD GAS ORDERABL ES Final Result Performing Organization Address City/[facility]/ZIP Co de Phone Number [facility] [address] [place] [address] * (ABNORMAL) COMPLETE BLOOD COUNT (10/15/2019 4:27 EDT) WBC 7.53 4.00 - 10.40 K/cmm 10/15/2019 4:59 EDT [facility] RBC 4.64 4.36 - 5.78 M/cmm 10/15/2019 4:59 EDT [facility] Hemoglobin 14.4 13.8 - 17.3 gm/dL 10/15/2019 4:59 EDT [facility] HCT 41.2 39.5 - 50.2 % 10/15/2019 4:59 EDT [facility] MCV 89 81 - 95 fl 10/15/2019 4:59 EDT [facility] MCH 31.0 27.6 - 33.0 pg 10/15/2019 4:59 EDT [facility] MCHC 35.0 32.8 - 36.4 gm/dL 10/15/2019 4:59 EDT [facility] RDW-CV 12.8 <14.2 % 10/15/2019 4:59 EDT [facility] RDW-SD 41.7 <46.0 fl 10/15/2019 4:59 EDT [facility] PLT 152 141 - 377 K/cmm 10/15/2019 4:59 EDT [facility] MPV 8.7(L) 9.5 - 12.7 fl 10/15/2019 4:59 EDT [facility] Blood VENOUS BLOOD / Unknown Venipuncture / Unknown 10/15/2019 4:27 EDT 10/15/2019 4:51 EDT us Bria Payton MD HEMATOLOGY & PF4 ORDERABLES Fi nal Result [facility] [address] [place] [address] * CT OUTSIDE IMAGES CHEST (10/14/2019 22:22 EDT) Marsha RODRIGUEZ - 10/14/2019 22:22 EDT This is a non-reportable exam. Physician Barge Master Avila CALIX IMG OTHER IMAGING ORDE RABLES Final Result JENNIFER * (ABNORMAL) TROPONIN I (10/14/2019 20:59 EDT) Troponin I (ng/mL) 23.700(H) <0.034 ng/mL 10/14/2019 21:44 EDT [facility] Blood VENOUS BLOOD / Unknown Venipuncture / Unknown 10/14/2019 20:59 EDT 10/14/2019 21:14 EDT Narrative [facility] - 10/14/2019 21:44 EDT The results of this assay can be falsely lowered due to the consumption of Biotin. Bria Payton MD CHEMISTRY & BLOOD GAS ORDERABL ES Final Result Performing Organization Address City/[facility]/ZIP Co de Phone Number [facility] [address] [place] [address] * (ABNORMAL) TROPONIN I (10/14/2019 12:39 EDT) Troponin I (ng/mL) 23.400(H) <0.034 ng/mL 10/14/2019 13:47 EDT [facility] Blood VENOUS BLOOD / Unknown Venipuncture / Unknown 10/14/2019 12:39 EDT 10/14/2019 13:11 EDT Narrative [facility] - 10/14/2019 13:47 EDT The results of this assay can be falsely lowered due to the consumption of Biotin. Bria Payton MD CHEMISTRY & BLOOD GAS ORDERABL ES Final Result [facility] [address] [place] [address] * LEFT HEART CATH, PERCUTANEOUS CORONARY INTERVENTION (10/14/2019 12:13 EDT) Anatomical Region Laterality Modality Patient Account Representative 10/14/2019 10:4 9 EDT Narrative 10/14/2019 12:35 EDT Cardiology [address] [place] [id number] Catheterization Laboratory Study Patient: William Cadena ? Study Date: ? 10/14/2019 ? Accession #: ?[id number] : ? 1940 Referring: Diagnostic Attending: ??Christiano Montgomery Interventional Attending: ?? Christiano Montgomery Diagnostic Fellow: Marilee Muñoz MD Interventional Fellow: Marilee Muñoz MD ATTESTATION: I, Dr. Marilee Muñoz was the initial author of this report. Dr. Christiano Montgomery was present and supervising for the entire procedure. I, Dr. Christiano Montgomery have reviewed and agreed with the findings of this report. PROCEDURE PLAN: Based on the diagnostic study percutaneous coronary intervention is indicated. RESEARCH STUDY: Patient is not enrolled in any research studies. IMPRESSIONS: 1. Using standard technique, the dLCX vessel was stented using a 2.75x16 ?? ZACHERY. THe LAD stented with a 3.5x28 ZACHERY and the RCA stented with a ?? 4x16 ZACHERY. 2. Patient presents with acute occlusion and OR as defined by Positive ?? biomarkers and non-ST elevation (NSTEMI). 3. 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 LAD: Proximal vessel lesion: There is an 80%de katty stenosis. There ?? is ALEXA grade 2 flow (partial perfusion) across the lesion. The ?? lesion was stented (see 2nd lesion intervention), with balloon ?? angioplasty. Following intervention, the lesion has a residual ?? stenosis of 0%, an excellent angiographic appearance, and ALEXA grade ?? 3 flow (brisk flow). 2. Left circumflex: Distal vessel lesion: There is a 100%de katty ?? stenosis. There is ALEXA grade 2 flow (partial perfusion) across the ?? lesion. The lesion was stented (see 1st lesion intervention), with ?? balloon angioplasty. Following intervention, the lesion has a ?? residual stenosis of 0%, an excellent angiographic appearance, and ?? ALEXA grade 3 flow (brisk flow). 3. Right coronary: Proximal vessel lesion: There is a discrete, 80%de ?? katty stenosis. There is ALEXA grade 2 flow (partial perfusion) across ?? the lesion. The lesion was stented (see 3rd lesion intervention), ?? with balloon angioplasty. Following intervention, the lesion has a ?? residual stenosis of 0%, an excellent angiographic appearance, and ?? ALEXA grade 3 flow (brisk flow). RECOMMENDATIONS: 1. ACC recommendation: PCI w/o planned CABG. 2. Add clopidogrel (Plavix), 75mgPOdaily, for 12mon. 3. Continue aspirin, at 81mgPOdaily, indefinitely. HISTORY: Allergies: ??No known allergies. LABS, PRIOR TESTS, PROCEDURES AND SURGERY: International normalized ratio (INR) of 1. ??Prothrombin time (PT) of 12.1 sec. ??Serum potassium (K) of 3.8 mEq/l. ??Serum creatinine (current admission) of 0.98 mg/dl. ??Blood urea nitrogen of 25 mg/dl. ??Platelet count of 152 th/ul. ??Hematocrit of 39.7 %. ??Hemoglobin (pre-procedure) of 13.5 g/dl. STUDY DATA: Study status: ??Cardiac cath: urgent. Percutaneous coronary intervention: urgent. ??Patient status: ??Inpatient. ??Location: ??Catheterization laboratory. Sex: male. Patient is 79yr old. Height: 170cm. Weight: 97.7kg. BSA: 2.18m^2. Procedures performed: ?Right radial artery access. ?Left coronary angiography. ?Right coronary angiography. ?Lesion intervention: ?? Percutaneous intervention on the 100% de katty stenosis in the distal left circumflex. ?Balloon angioplasty. ?Stent placement. ?Balloon angioplasty. ?Lesion intervention: Percutaneous intervention on the 80% de katty stenosis in the proximal LAD. ?Balloon angioplasty. ?Stent placement. ?Lesion intervention: ?? Percutaneous intervention on the 80% de katty stenosis in the proximal right coronary. ?Stent placement. ANESTHESIA: Conscious sedation. PROCEDURE: 1. Initial setup. The patient was brought to the laboratory in the ?? fasting state. A baseline ECG was recorded. Surface ECG leads, ?? automatic cuff blood pressure measurements, and pulse oximetric ?? signals were monitored. 2. Skin preparation. The planned puncture sites were prepped with ?? chlorhexidine and draped in the usual sterile manner. 3. Local anesthesia. Using 2% Lidocaine, local anesthetic was ?? administered to the access site(s). 4. Right radial artery access. A 6 Fr/10/.021 Milford Sheath SLENDER ?? sheath was advanced into the vessel. 5. Selective left coronary angiography. The procedure was attempted ?? using a 5 Fr Tig Catheter 4.0 catheter, but proper positioning could ?? not be achieved, and the catheter was exchanged for a 6 FR/100cm EBU ?? 3.5 Launcher catheter which was advanced into the left coronary ?? vessel ostium under fluoroscopic guidance. Contrast was injected. ?? Images were obtained in multiple projections. 6. Selective right coronary angiography. A 5 Fr Tig Catheter 4.0 ?? catheter was advanced into the right coronary vessel ostium under ?? fluoroscopic guidance. Contrast was injected. Images were obtained in ?? multiple projections. 7. Right radial artery hemostasis. Mechanical compression was applied. 1st lesion intervention: Percutaneous intervention on the 100% de katty stenosis in the distal left circumflex. 1. Guider placement. A 6 FR/100cm EBU 3.5 Launcher guiding catheter was ?? placed. 2. Wire placement. A 180 Prowater wire was placed across the lesion. 3. Balloon angioplasty. A 2.5mm (D) x 15mm (L), Emerge RX balloon was ?? employed. The balloon was placed across the lesion and given a single ?? inflation with a maximum inflation pressure of 6atm. 4. Stent placement. A 2.75/16 Promus Elite stent was advanced across the ?? lesion and deployed with a single inflation and a maximum pressure of ?? 12atm. 5. Balloon angioplasty. A 2.75mm (D) x 8mm (L), NC EMERGE balloon was ?? employed. The balloon was placed across the lesion and given a single ?? inflation with a maximum inflation pressure of 18atm. 2nd lesion intervention: Percutaneous intervention on the 80% de katty stenosis in the proximal LAD. 1. Wire placement. A 180 Prowater wire was placed across the lesion. 2. Balloon angioplasty. A 3mm (D) x 15mm (L), Emerge RX balloon was ?? employed. The balloon was placed across the lesion and given a single ?? inflation with a maximum inflation pressure of 14atm. 3. Stent placement. A 3.5/28 Promus Elite stent was advanced across the ?? lesion and deployed with a single inflation and a maximum pressure of ?? 12atm. 3rd lesion intervention: Percutaneous intervention on the 80% de katty stenosis in the proximal right coronary. 1. Guider placement. A 6F Runway RCB guiding catheter was placed. 2. Wire placement. A 180 Prowater wire was placed across the lesion. 3. Stent placement. A 4.0/16 Promus Elite stent was advanced across the ?? lesion and deployed with a single inflation and a maximum pressure of ?? 14atm. STUDY COMPLETION: The estimated blood loss was 10ml. All catheters inserted during the procedure were removed. The patient tolerated the procedure well and was discharged from the lab. There were no complications. ??Contrast: Isovue 300ml (total dose). ??Isovue 100ml (wasted). ??Fluoroscopy time: 18.7min. ??Fluoroscopy dose: ??60.1cGy. CORONARY ARTERIES: The coronary circulation is right dominant. Left main: ??Normal. LAD: ??Proximal vessel lesion: There is an 80%de katty stenosis. There is ALEXA grade 2 flow (partial perfusion) across the lesion. The lesion was stented (see 2nd lesion intervention), with balloon angioplasty. Following intervention, the lesion has a residual stenosis of 0%, an excellent angiographic appearance, and ALEXA grade 3 flow (brisk flow). Left circumflex: ??Distal vessel lesion: There is a 100%de katty stenosis. There is ALEXA grade 2 flow (partial perfusion) across the lesion. The lesion was stented (see 1st lesion intervention), with balloon angioplasty. Following intervention, the lesion has a residual stenosis of 0%, an excellent angiographic appearance, and ALEXA grade 3 flow (brisk flow). Right coronary: ??Proximal vessel lesion: There is a discrete, 80%de katty stenosis. There is ALEXA grade 2 flow (partial perfusion) across the lesion. The lesion was stented (see 3rd lesion intervention), with balloon angioplasty. Following intervention, the lesion has a residual stenosis of 0%, an excellent angiographic appearance, and ALEXA grade 3 flow (brisk flow). HEMODYNAMICS: No pressure measurements. + + + Stage description ? Condition1:Condition 1 - + + + Arterial pressure s/d (m) 134/77 (103) ? + + + * Electronically signed by Christiano Montgomery MD 2019-10-14 12:35 Procedure Note Christiano Montgomery MD - 10/14/2019 Cardiology [address] [place] [address] Catheterization Laboratory Study Patient: William Cadena Study Date: 10/14/2019 : 1940 Referring: Diagnostic Attending: Christiano Montgomery Interventional Attending: Christiano Montgomery Diagnostic Fellow: Marilee Muñoz MD Interventional Fellow: Marilee Muñoz MD ATTESTATION: Dr. Marilee Valenzuela was the initial author of this report. Dr. Christiano Montgomery was present and supervising for the entire procedure. Dr. Christiano Valenzuela have reviewed and agreed with the findings of this report. PROCEDURE PLAN: Based on the diagnostic study percutaneous coronary intervention is indicated. RESEARCH STUDY: Patient is not enrolled in any research studies. IMPRESSIONS: 1. Using standard technique, the dLCX vessel was stented using a 2.75x16 ZACHERY. THe LAD stented with a 3.5x28 ZACHERY and the RCA stented with a 4x16 ZACHERY. 2. Patient presents with acute occlusion and OR as defined by Positive biomarkers and non-ST elevation (NSTEMI). 3. 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 LAD: Proximal vessel lesion: There is an 80%de katty stenosis. There is ALEXA grade 2 flow (partial perfusion) across the lesion. The lesion was stented (see 2nd lesion intervention), with balloon angioplasty. Following intervention, the lesion has a residual stenosis of 0%, an excellent angiographic appearance, and ALEXA grade 3 flow (brisk flow). 2. Left circumflex: Distal vessel lesion: There is a 100%de katty stenosis. There is ALEXA grade 2 flow (partial perfusion) across the lesion. The lesion was stented (see 1st lesion intervention), with balloon angioplasty. Following intervention, the lesion has a residual stenosis of 0%, an excellent angiographic appearance, and ALEXA grade 3 flow (brisk flow). 3. Right coronary: Proximal vessel lesion: There is a discrete, 80%de katty stenosis. There is ALEXA grade 2 flow (partial perfusion) across the lesion. The lesion was stented (see 3rd lesion intervention), with balloon angioplasty. Following intervention, the lesion has a residual stenosis of 0%, an excellent angiographic appearance, and ALEXA grade 3 flow (brisk flow). RECOMMENDATIONS: 1. ACC recommendation: PCI w/o planned CABG. 2. Add clopidogrel (Plavix), 75mgPOdaily, for 12mon. 3. Continue aspirin, at 81mgPOdaily, indefinitely. HISTORY: Allergies: No known allergies. LABS, PRIOR TESTS, PROCEDURES AND SURGERY: International normalized ratio (INR) of 1. Prothrombin time (PT) of 12.1 sec. Serum potassium (K) of 3.8 mEq/l. Serum creatinine (current admission) of 0.98 mg/dl. Blood urea nitrogen of 25 mg/dl. Platelet count of 152 th/ul. Hematocrit of 39.7 %. Hemoglobin (pre-procedure) of 13.5 g/dl. STUDY DATA: Study status: Cardiac cath: urgent. Percutaneous coronary intervention: urgent. Patient status: Inpatient. Location: Catheterization laboratory. Sex: male. Patient is 79yr old. Height: 170cm. Weight: 97.7kg. BSA: 2.18m^2. Procedures performed: Right radial artery access. Left coronary angiography. Right coronary angiography. Lesion intervention: Percutaneous intervention on the 100% de katty stenosis in the distal left circumflex. Balloon angioplasty. Stent placement. Balloon angioplasty. Lesion intervention: Percutaneous intervention on the 80% de katty stenosis in the proximal LAD. Balloon angioplasty. Stent placement. Lesion intervention: Percutaneous intervention on the 80% de katty stenosis in the proximal right coronary. Stent placement. ANESTHESIA: Conscious sedation. PROCEDURE: 1. Initial setup. The patient was brought to the laboratory in the fasting state. A baseline ECG was recorded. Surface ECG leads, automatic cuff blood pressure measurements, and pulse oximetric signals were monitored. 2. Skin preparation. The planned puncture sites were prepped with chlorhexidine and draped in the usual sterile manner. 3. Local anesthesia. Using 2% Lidocaine, local anesthetic was administered to the access site(s). 4. Right radial artery access. A 6 Fr/10/.021 Milford Sheath SLENDER sheath was advanced into the vessel. 5. Selective left coronary angiography. The procedure was attempted using a 5 Fr Tig Catheter 4.0 catheter, but proper positioning could not be achieved, and the catheter was exchanged for a 6 FR/100cm EBU 3.5 Launcher catheter which was advanced into the left coronary vessel ostium under fluoroscopic guidance. Contrast was injected. Images were obtained in multiple projections. 6. Selective right coronary angiography. A 5 Fr Tig Catheter 4.0 catheter was advanced into the right coronary vessel ostium under fluoroscopic guidance. Contrast was injected. Images were obtained in multiple projections. 7. Right radial artery hemostasis. Mechanical compression was applied. 1st lesion intervention: Percutaneous intervention on the 100% de katty stenosis in the distal left circumflex. 1. Guider placement. A 6 FR/100cm EBU 3.5 Launcher guiding catheter was placed. 2. Wire placement. A 180 Prowater wire was placed across the lesion. 3. Balloon angioplasty. A 2.5mm (D) x 15mm (L), Emerge RX balloon was employed. The balloon was placed across the lesion and given a single inflation with a maximum inflation pressure of 6atm. 4. Stent placement. A 2.75/16 Promus Elite stent was advanced across the lesion and deployed with a single inflation and a maximum pressure of 12atm. 5. Balloon angioplasty. A 2.75mm (D) x 8mm (L), NC EMERGE balloon was employed. The balloon was placed across the lesion and given a single inflation with a maximum inflation pressure of 18atm. 2nd lesion intervention: Percutaneous intervention on the 80% de katty stenosis in the proximal LAD. 1. Wire placement. A 180 Prowater wire was placed across the lesion. 2. Balloon angioplasty. A 3mm (D) x 15mm (L), Emerge RX balloon was employed. The balloon was placed across the lesion and given a single inflation with a maximum inflation pressure of 14atm. 3. Stent placement. A 3.5/28 Promus Elite stent was advanced across the lesion and deployed with a single inflation and a maximum pressure of 12atm. 3rd lesion intervention: Percutaneous intervention on the 80% de katty stenosis in the proximal right coronary. 1. Guider placement. A 6F Runway RCB guiding catheter was placed. 2. Wire placement. A 180 Prowater wire was placed across the lesion. 3. Stent placement. A 4.0/16 Promus Elite stent was advanced across the lesion and deployed with a single inflation and a maximum pressure of 14atm. STUDY COMPLETION: The estimated blood loss was 10ml. All catheters inserted during the procedure were removed. The patient tolerated the procedure well and was discharged from the lab. There were no complications. Contrast: Isovue 300ml (total dose). Isovue 100ml (wasted). Fluoroscopy time: 18.7min. Fluoroscopy dose: 60.1cGy. CORONARY ARTERIES: The coronary circulation is right dominant. Left main: Normal. LAD: Proximal vessel lesion: There is an 80%de katty stenosis. There is ALEXA grade 2 flow (partial perfusion) across the lesion. The lesion was stented (see 2nd lesion intervention), with balloon angioplasty. Following intervention, the lesion has a residual stenosis of 0%, an excellent angiographic appearance, and ALEXA grade 3 flow (brisk flow). Left circumflex: Distal vessel lesion: There is a 100%de katty stenosis. There is ALEXA grade 2 flow (partial perfusion) across the lesion. The lesion was stented (see 1st lesion intervention), with balloon angioplasty. Following intervention, the lesion has a residual stenosis of 0%, an excellent angiographic appearance, and ALEXA grade 3 flow (brisk flow). Right coronary: Proximal vessel lesion: There is a discrete, 80%de katty stenosis. There is ALEXA grade 2 flow (partial perfusion) across the lesion. The lesion was stented (see 3rd lesion intervention), with balloon angioplasty. Following intervention, the lesion has a residual stenosis of 0%, an excellent angiographic appearance, and ALEXA grade 3 flow (brisk flow). HEMODYNAMICS: No pressure measurements. + + + Stage description Condition1:Condition 1 - + + + Arterial pressure s/d (m) 134/77 (103) + + + * Electronically signed by Christiano Montgomery MD 2019-10-14 12:35 us Bria Payton MD CARDIAC CATH ORDERABLES Final Result * (ABNORMAL) POCT ACTIVATED CLOTTING TIME, [facility]ICHO ISTAT (10/14/2019 11:53 EDT) [facility] iSTAT Activated Clotting Time 241(H) 74 - 137 sec 10/14/2019 12:09 EDT [facility] group home supervisor ID [id number] 10/14/2019 12:09 EDT [facility] HN LAB POC COMMENT (ACT) Test performed by Cardiology. Therapeutic interventaional range is dependent upon patient population and procedure type 10/14/2019 12:09 EDT [facility] Blood ARTERIAL BLOOD / Unknown 10/14/2019 11:53 EDT 10/14/2019 12:08 EDT us Kentrell Byrne MD POINT OF CARE TEST ORDERA BLES Final Result [facility] [address] [place] [id number] * TRANSTHORACIC ECHO (TTE) COMPLETE W/DOPPLER W/CF NO CONTRAST (10/14/2019 11:00 EDT) [facility] LA Atrial Length A2C 5.5 cm POINT OF CARE [facility] LA Atrial Area A4C 22.1 cm2 P [facility]INT [facility] CARE [facility] LA ID/bsa, A-P 2.1 cm/m2 [facility] Mitral valve area, PHT, DP 3.4 cm2 [facility] FS 33 28 - 44 % POINT OF C ARE [facility] LA ID, A-P, ES 4.4 cm [facility] LV PW thickness, ED, PLAX 1.2 0.6 - 1.1 cm [facility] LV ejection fraction, 1-p A4C 61 % POINT [facility] C [facility] LV e', lateral 0.07 m/s [facility] Mitral deceleration time 222 ms [facility] LV IVRT, DP 120 msec [facility] LVOT area 3.5 cm2 [facility] Mitral peak gradient, D 3.6 mmHg [facility] Mitral E-wave peak velocity 1.0 m/s [facility] Mitral pressure half-time 65 ms [facility] Mitral A-wave peak velocity 1.0 m/s [facility] LV Systolic Volume Index 20.0 mL/m2 [facility] LV Diastolic Volume Index 46.0 mL/m2 [facility] LA Atrial Length A4C 5.9 cm [facility] LVOT ID, S 2.1 cm [facility] Mitral deceleration slope 426 cm/s2 [facility] EF 57 % POINT [facility] C ARE [facility] LA volume, ES, BP 68.0 ml PO INT OF CARE [facility] LA volume/bsa, ES, A4C 32.0 ml/m2 PO[facility] LA volumes, ES, A4C 68.0 ml PO[facility] C[facility] LA volume/bsa, ES, BP 32.0 ml/m2 [facility] LV Systolic Volume 42 mL P [facility] LV Diastolic Volume 97 mL [facility] Interventricular Septum to Posterior Wall Thickness Ratio 1 POINT O F CARE [facility] IVS thickness, ED, PLAX 1.2 cm POINT [facility] C[facility] LV e', medial 0.07 m/s [facility] LV e', average 0.07 m/s [facility] Ascending aorta ID, a-p 4.0 cm POINT OF CARE [facility] LA Atrial Area A2C 22.1 cm2 P OINT OF CARE [facility] LV ID, ED, PLAX 4.8 3.5 - 6.0 cm PO[facility] C[facility] LV ID, ES, PLAX 3.2 2.1 - 4.0 cm POINT [facility] CARE [facility] LV end diastolic volume 1-p A2C 81 ml POINT OF CARE [facility] LV ejection fraction, 1-p A2C 52 % POINT OF C ARE [facility] LV E/e', lateral 13.0 POI NT OF CARE [facility] LV E/e', medial 13.0 POIN T OF CARE [facility] LV E/e', average 13 POI NT OF CARE [facility] LV ejection fraction, 1-p A4C 33 % POINT OF C ARE [facility] LV end-diastolic volume, 1-p A4C 110 ml POINT OF CAR E [facility] Anatomical Region Laterality Modality Ultrasound Narrative 10/14/2019 12:38 EDT ?Left Ventricle: The left ventricular cavity was normal in size. ?Left Ventricle: Left ventricular systolic function was normal with an ejection fraction of 55-60%. ?Left Ventricle: Possible hypokinesis of the basal-mid posterolateral wall. ?Right Ventricle: Right ventricular systolic function was normal. ?Aortic Valve: There was mild to moderate aortic valve regurgitation. ?Mitral Valve: There was mild mitral regurgitation. Left Ventricle The left ventricular cavity was normal in size. Left ventricular systolic function was normal with an ejection fraction of 55-60%. There was mild hypertrophy of the left ventricle. Possible hypokinesis of the basal-mid posterolateral wall. Right Ventricle The right ventricular cavity was normal in size. Right ventricular systolic function was normal. Right ventricular wall thickness was normal. Left Atrium Left atrial cavity was mildly dilated. Right Atrium The right atrium was normal in size. IVC/SVC The inferior vena cava was normal in size. Mitral Valve Mitral valve structure was normal. There was mild mitral regurgitation. There was no significant mitral valve stenosis. Tricuspid Valve Tricuspid valve structure was normal. There was trace tricuspid valve regurgitation. There was no tricuspid valve stenosis. Aortic Valve The aortic valve structure was trileaflet. The aortic leaflets were mildly thickened. There was no aortic valve stenosis. There was mild to moderate aortic valve regurgitation. Pulmonic Valve There was no pulmonic valve regurgitation. There was no pulmonic valve stenosis. Ascending Aorta The aorta was normal in size. Pericardium There was no pericardial effusion. Pulmonic Artery Pulmonary systolic pressure was within the normal range. Study Details Study status: Routine. Transthoracic echocardiography. M-Mode, complete 2D, complete spectral Doppler, and color Doppler.The study was interpreted by [facility] Cardiology. Pertinent images and digital data are archived for permanent storage and are available for subsequent review. Scanning was performed from the apical, parasternal, subcostal and suprasternal acoustic windows. Overall the study quality was adequate. Images were obtained using cardiac ultrasound machine TapprQ #[id number]. us Bria Mahurin MD CARDIAC ECHO ORDERABLES Final Result * (ABNORMAL) TROPONIN I (10/14/2019 5:20 EDT) Troponin I (ng/mL) 5.520(H) <0.034 ng/mL 10/14/2019 6:04 EDT [facility] Blood VENOUS BLOOD / Unknown Venipuncture / Unknown 10/14/2019 5:20 EDT 10/14/2019 5:25 EDT Narrative [facility] - 10/14/2019 6:04 EDT The results of this assay can be falsely lowered due to the consumption of Biotin. us Bria Payton MD CHEMISTRY & BLOOD GAS ORDERABL ES Final Result Performing Organization Address [facility] Co de Phone Number [facility] [address] [place] [phone] * CREATININE (10/14/2019 5:20 EDT) Creatinine 0.98 0.66 - 1.25 mg/dL 10/14/2019 5:51 EDT [facility] eGFR 74 >60 mL/min/1.7 3m2 10/14/2019 5:51 EDT [facility] Comment:eGFR calculated dung chandra CKD-EPI equation for non- Americans. Multiply eGFR by 1.16 for patients. Blood VENOUS BLOOD / Unknown Venipuncture / Unknown 10/14/2019 5:20 EDT 10/14/2019 5:25 EDT us Bria Payton MD CHEMISTRY & BLOOD GAS ORDERABL ES Final Result Performing Organization Address City/[facility]/ZIP Co de Phone Number [facility] [address] [place] [address] * ELECTROLYTES (10/14/2019 5:20 EDT) Sodium 137 136 - 145 mEq/L 10/14/2019 5:51 EDT [facility] Potassium 3.8 3.5 - 5.0 mEq/L 10/14/2019 5:51 [facility] Chloride 108 96 - 110 mEq/L 10/14/2019 5:51 [facility] CO2 Total 23 22 - 32 mEq/L 10/14/2019 5:51 [facility] Blood VENOUS BLOOD / Unknown Venipuncture / Unknown 10/14/2019 5:20 EDT 10/14/2019 5:25 EDT us Bria Payton MD CHEMISTRY & BLOOD GAS ORDERABL ES Final Result [facility] [address] [place] [address] * (ABNORMAL) COMPLETE BLOOD COUNT (10/14/2019 5:20 EDT) WBC 7.39 4.00 - 10.40 K/cmm 10/14/2019 5:33 [facility] RBC 4.46 4.36 - 5.78 M/cmm 10/14/2019 5:33 [facility] Hemoglobin 13.5(L) 13.8 - 17.3 gm/dL 10/14/2019 5:33 [facility] HCT 39.7 39.5 - 50.2 % 10/14/2019 5:33 [facility] MCV 89 81 - 95 fl 10/14/2019 5:33 [facility] MCH 30.3 27.6 - 33.0 pg 10/14/2019 5:33 [facility] MCHC 34.0 32.8 - 36.4 gm/dL 10/14/2019 5:33 [facility] RDW-CV 12.7 <14.2 % 10/14/2019 5:33 [facility] RDW-SD 41.6 <46.0 fl 10/14/2019 5:33 [facility] PLT 152 141 - 377 K/cmm 10/14/2019 5:33 [facility] MPV 8.9(L) 9.5 - 12.7 fl 10/14/2019 5:33 [facility] Blood VENOUS BLOOD / Unknown Venipuncture / Unknown 10/14/2019 5:20 EDT 10/14/2019 5:26 EDT us Bria Payton MD HEMATOLOGY & PF4 ORDERABLES Fi nal Result Performing Organization Address City/[facility]/ZIP Co de Phone Number [facility] [address] [place] [phone] * HEPARIN LEVEL - UNFRACTIONATED HEPARIN (10/14/2019 5:20 EDT) Heparin Level-UFH 0.71 Therapeutic Range: 0.30 - 0.70 IU/mL 10/14/2019 5:42 EDT [facility] Comment:Unfractionated hepar in therapeutic range = 0.3-0.7 IU/ml - This test is not intended for monitoring direct Xa inhibitors, direct thrombin inhibitors, or fondaparinux.- Exogenous ATIII is NOT supplied in this assay. For unexpected or persistently low levels, consider measuring patient's ATIII level. Results will be overestimated in the presence of direct Xa inhibitors (rivaroxaban, apixaban, edoxaban). Blood VENOUS BLOOD / Unknown Venipuncture / Unknown 10/14/2019 5:20 EDT 10/14/2019 5:25 EDT us Bria Payton MD HEMATOLOGY & PF4 ORDERABLES Fi nal Result Performing Organization Address City/[facility]/ZIP Co de Phone Number [facility] [address] [place] [address] * HOLD BLUE TOP (10/13/2019 23:40 EDT) Hold Hold 10/14/2019 1:00 EDT [facility] Blood VENOUS BLOOD / Unknown Venipuncture / Unknown 10/13/2019 23:40 EDT 10/13/2019 23:45 EDT Donnie Romeo MD MSc LAB INFO SERVICE AND SUPP ORT & PHONE RESULT Final Result [facility] [address] [place] [phone] * HEPARIN LEVEL - UNFRACTIONATED HEPARIN (10/13/2019 23:07 EDT) Heparin Level-UFH 0.63 Therapeutic Range: 0.30 - 0.70 IU/mL 10/13/2019 23:39 EDT [facility] Comment:Unfractionated hepar in therapeutic range = 0.3-0.7 IU/ml - This test is not intended for monitoring direct Xa inhibitors, direct thrombin inhibitors, or fondaparinux.- Exogenous ATIII is NOT supplied in this assay. For unexpected or persistently low levels, consider measuring patient's ATIII level. Results will be overestimated in the presence of direct Xa inhibitors (rivaroxaban, apixaban, edoxaban). Blood VENOUS BLOOD / Unknown Venipuncture / Unknown 10/13/2019 23:07 EDT 10/13/2019 23:10 EDT Bria Payton MD HEMATOLOGY & PF4 ORDERABLES Fi nal Result Performing Organization Address [facility]/ZIP Co de Phone Number [facility] [address] [place] [address] * COVID-19 TEST [facility] PCR (10/13/2019 22:23 EDT) Swab ENTIRE NASOPHARYNX / Unknown Swab / Unknown 10/13/2019 22:23 EDT 10/13/2019 22:25 EDT Donnie Romeo MD MSc MICROBIOLOGY - GENERAL OR DERABLES Final Result Performing Organization Address [facility]/ZIP Co de Phone Number [facility] [address] [place] [address] * COVID-19 TESTING (10/13/2019 22:23 EDT) COVID-19 rt-PCR Result Negative Negative 10/14/2019 2:24 EDT [facility] Comment: This test has not [...] history, and epidemiological information. Performed on the OrthoSensor Fusion instrument Performing Lab [place] [facility] 10/14/2019 2:24 EDT [facility] Swab ENTIRE NASOPHARYNX / Unknown Swab / Unknown 10/13/2019 22:23 EDT 10/13/2019 22:25 EDT us Donnie Romeo MD MSc MICROBIOLOGY - GENERAL OR DERABLES Final Result Performing Organization Address City/[facility] Co de Phone Number [facility] [address] [place] [phone] * (ABNORMAL) NT PRO BNP (10/13/2019 20:56 EDT) NT-pro BNP 1,470(H) <450 pg/mL 10/13/2019 22:44 EDT [facility] Comment: The results of this assay can be falsely lowered due to consumption of Biotin. Blood VENOUS BLOOD / Unknown Venipuncture / Unknown 10/13/2019 20:56 EDT 10/13/2019 21:35 EDT us Bria Payton MD CHEMISTRY & BLOOD GAS ORDERABL ES Final Result Performing Organization Address [facility] Co de Phone Number [facility] [address] [place] [address] * LIPID PROFILE (INCLUDES CHOLESTEROL, TRIGLYCERIDES, HDL, LDL) (10/13/2019 20:56 EDT) Cholesterol 182 See Note mg/dL 10/13/2019 22:30 EDT [facility] Comment: Acceptable: ?<200 mg/dL Borderline High: 200-239 mg/dL High: ?> or = 240 mg/dL HDL 36 See Note mg/dL 10/13/2019 22:30 [facility] Comment: Low: ? <40 mg/dL Normal: ??40-60 mg/dL High: ?>60 mg/dL LDL, Calculated 122 See Note mg/dL 10/13/2019 22:30 [facility] Comment: Optimal: ? <100 mg/dL Near Optimal: ?100-129 mg/dL Borderline High: 130-159 mg/dL High: ?160-189 mg/dL Very High: ? > or = 190 mg/dL Triglyceride 119 See Note mg/dL 10/13/2019 22:30 [facility] Comment: Normal: ? <150 mg/dL Borderline High: ??150 - 199 mg/dL High: ? 200 - 499 mg/dL Very High: ?> or = 500 mg/dL Chol/HDL Ratio 5.1 See Note 10/13/2019 22:30 [facility] Comment: No reference range has been established for CHOL/HDL ratio. Non HDL Cholesterol 146 See Note mg/dL 10/13/2019 22:30 [facility] Comment: Desirable: ?<130 mg/dL Borderline High: ??130-159 mg/dL High: ? 160-189 mg/dL Very High: ?> or = 190 mg/dL Blood VENOUS BLOOD / Unknown Venipuncture / Unknown 10/13/2019 20:56 EDT 10/13/2019 21:35 EDT us Bria Payton MD CHEMISTRY & BLOOD GAS ORDERABL ES Final Result [facility] [address] [place] [address] * HEMOGLOBIN A1C (10/13/2019 20:56 EDT) Hemoglobin A1c 5.2 <5.7 % 10/16/2019 11:19 EDT [facility] Comment: Glycemic Status References: Normal: ??<5.7% Pre-Diabetes: ??5.7% - 6.4% Diagnostic of Diabetes: ??> or = 6.5% (if confirmed) Goals for glycemic control in diabetics (ADA 2017): <7.0% target for non adults with diabetes. <7.5% target for children and adolescents with Type I Diabetes. More or less stringent targets may be appropriate for individual patients. Est Avg Glucose 103 mg/dL 0 11:19 EDT [facility] Comment: The eAG represents the A1c result expressed as average glucose in mg/dL. Blood VENOUS BLOOD / Unknown Venipuncture / Unknown 10/13/2019 20:56 EDT 10/13/2019 21:34 EDT us Bria Payton MD CHEMISTRY & BLOOD GAS ORDERABL ES Final Result [facility] [address] [place] [address] * (ABNORMAL) PTT (10/13/2019 20:49 EDT) PTT 111(HH) 26 - 37 secs 10/13/2019 23:14 EDT [facility] Blood VENOUS BLOOD / Unknown Venipuncture / Unknown 10/13/2019 20:49 EDT 10/13/2019 21:34 EDT us Donnie Romeo MD MSc HEMATOLOGY & PF4 ORDERABL ES Final Result [facility] [address] [place] [address] * PROTIME (10/13/2019 20:49 EDT) I.N.R. 1.0 0.9 - 1.1 Ratio 10/13/2019 23:14 EDT [facility] Pro Time 12.1 10.3 - 13.4 secs 10/13/2019 23:14 EDT [facility] Blood VENOUS BLOOD / Unknown Venipuncture / Unknown 10/13/2019 20:49 EDT 10/13/2019 21:34 EDT Narrative [facility] - 10/13/2019 23:14 EDT Moderate Intensity Coumadin INR = 2.0-3.0 Adjustments in anticoagulant therapy dose should be based on the INR and NOT on the Protime. Donnie Romeo MD MSc HEMATOLOGY & PF4 ORDERABL ES Final Result Performing Organization Address City/[facility]/ZIP Co de Phone Number [facility] [address] [place] [phone] * SCREENING GLUCOSE (10/13/2019 20:49 EDT) Glucose, Screening 96 70 - 100 mg/dL 10/13/2019 21:56 EDT [facility] Blood VENOUS BLOOD / Unknown Venipuncture / Unknown 10/13/2019 20:49 EDT 10/13/2019 21:35 EDT Donnie Romeo MD MSc CHEMISTRY & BLOOD GAS ORD ERABLES Final Result [facility] [address] [place] [address] * MAGNESIUM (10/13/2019 20:49 EDT) Magnesium 2.0 1.7 - 2.8 mg/dL 10/13/2019 21:56 EDT [facility] Blood VENOUS BLOOD / Unknown Venipuncture / Unknown 10/13/2019 20:49 EDT 10/13/2019 21:35 EDT Donnie Romeo MD MSc CHEMISTRY & BLOOD GAS ORD ERABLES Final Result [facility] [address] [place] [address] * (ABNORMAL) TROPONIN I (10/13/2019 20:49 EDT) Troponin I (ng/mL) 3.930(H) <0.034 ng/mL 10/13/2019 22:20 EDT [facility] Blood VENOUS BLOOD / Unknown Venipuncture / Unknown 10/13/2019 20:49 EDT 10/13/2019 21:35 EDT Narrative [facility] - 10/13/2019 22:20 EDT The results of this assay can be falsely lowered due to the consumption of Biotin. Donnie Romeo MD, MSc CHEMISTRY & BLOOD GAS ORD ERABLES Final Result Performing Organization Address [facility]/ZIP Co de Phone Number [facility] [address] [place] [address] * ELECTROLYTES (10/13/2019 20:49 EDT) Pathologist [facility] Sodium 137 136 - 145 mEq/L 10/13/2019 21:56 EDT [facility] Potassium 4.0 3.5 - 5.0 mEq/L 10/13/2019 21:56 EDT [facility] Chloride 107 96 - 110 mEq/L 10/13/2019 21:56 EDT [facility] CO2 Total 22 22 - 32 mEq/L 10/13/2019 21:56 EDT [facility] Blood VENOUS BLOOD / Unknown Venipuncture / Unknown 10/13/2019 20:49 EDT 10/13/2019 21:35 EDT Donnie Romeo MD MSc CHEMISTRY & BLOOD GAS ORD ERABLES Final Result [facility] [address] [place] [phone] * CREATININE (10/13/2019 20:49 EDT) Creatinine 1.03 0.66 - 1.25 mg/dL 10/13/2019 21:56 EDT [facility] eGFR 70 >60 mL/min/1.7 3m2 10/13/2019 21:56 EDT [facility] Comment:eGFR calculated dung chandra CKD-EPI equation for non- Americans. Multiply eGFR by 1.16 for patients. Blood VENOUS BLOOD / Unknown Venipuncture / Unknown 10/13/2019 20:49 EDT 10/13/2019 21:35 EDT Donnie Romeo MD MSc CHEMISTRY & BLOOD GAS ORD ERABLES Final Result Performing Organization Address [facility]/ZIP Co de Phone Number [facility] [address] [place] [address] * BUN (10/13/2019 20:49 EDT) BUN 25 10 - 26 mg/dL 10/13/2019 21:56 EDT [facility] Blood VENOUS BLOOD / Unknown Venipuncture / Unknown 10/13/2019 20:49 EDT 10/13/2019 21:35 EDT Donnie Romeo MD MSc CHEMISTRY & BLOOD GAS ORD ERABLES Final Result [facility] [address] [place] [address] * (ABNORMAL) COMPLETE BLOOD COUNT AND DIFFERENTIAL (10/13/2019 20:49 EDT) WBC 7.22 4.00 - 10.40 K/cmm 10/13/2019 21:43 EDT [facility] RBC 4.58 4.36 - 5.78 M/cmm 10/13/2019 21:43 EDT [facility] Hemoglobin 14.3 13.8 - 17.3 gm/dL 10/13/2019 21:43 [facility] HCT 40.7 39.5 - 50.2 % 10/13/2019 21:43 [facility] MCV 89 81 - 95 fl 10/13/2019 21:43 [facility] MCH 31.2 27.6 - 33.0 pg 10/13/2019 21:43 [facility] MCHC 35.1 32.8 - 36.4 gm/dL 10/13/2019 21:43 [facility] RDW-CV 12.7 <14.2 % 10/13/2019 21:43 [facility] RDW-SD 41.1 <46.0 fl 10/13/2019 21:43 [facility] PLT 168 141 - 377 K/cmm 10/13/2019 21:43 [facility] MPV 8.9(L) 9.5 - 12.7 fl 10/13/2019 21:43 [facility] % Neutrophils 41.4 % 10/13/2019 21:43 [facility] % Lymphocytes 47.2 % 10/13/2019 21:43 [facility] % Monocytes 8.2 % 10/13/2019 21:43 [facility] % Eosinophils 2.4 % 10/13/2019 21:43 [facility] % Basophils 0.7 % 10/13/2019 21:43 [facility] % Immature Grans 0.1 % 10/13/19 20 21:43 [facility] Absolute Neutrophils 2.99 2.20 - 8.85 K/cmm 10/13/2019 21:43 [facility] Absolute Lymphocytes 3.41(H) 1.09 - 3.30 K/cmm 10/13/2019 21:43 [facility] Absolute Monocytes 0.59 0.10 - 0.80 K/cmm 10/13/2019 21:43 [facility] Absolute Eosinophils 0.17 0.03 - 0.61 K/cmm 10/13/2019 21:43 [facility] ABS Basophils 0.05 0.01 - 0.11 K/cmm 10/13/2019 21:43 EDT [facility] Absolute Immature Grans 0.01 0.00 - 0.06 K/cmm 10/13/2019 21:43 EDT [facility] Type of Differential: Auto 10/13/2019 21:43 EDT [facility] Blood VENOUS BLOOD / Unknown Venipuncture / Unknown 10/13/2019 20:49 EDT 10/13/2019 21:34 EDT us Donnie Romeo MD MSc PACKAGES & DNA PROBE ORDE [facility] Final Result [facility] [address] [place] [address] * EKG 12-LEAD (10/13/2019 20:38 EDT) 10/13/2019 20:3 8 EDT Narrative [facility] - 10/23/2019 7:39 EDT ?[facility] ? Test Date: ?2019-10-13 Pat Name: ? WILLIAM CADENA ?Department: ?? ED ? Room: ? AC07 Gender: ? Male ? 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 [id number] : ?[id number] ? Requested By: LA Cuellar Order Number: [id number] ? Reading MD: ?? DEBORA ROBLERO MD ? Measurements Intervals ?[place] ? Rate: ? 62 ? P: ?12 WY: ? 198 ?QRS: ?23 QRSD: ? 94 ? T: ?48 QT: ? 441 ? QTc: ?449 ? Interpretive Statements SINUS RHYTHM Automated Interpretation. ??Provider Interpretation to follow. No previous ECG available for comparison I reviewed the tracing and have either agreed or edited the findings in this report. Electronically Signed On 10-23-2019 7:39:03 EDT by DEBORA ROBLERO MD. 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 Provider Interpretation to follow. No previous ECG available for comparison I reviewed the tracing and have either agreed or edited the findings inthis report. Electronically Signed On 10-23-2019 7:39:03 EDT by DEBORA RANDLE. us Donnie Romeo MD MSc CARDIAC ECG ORDERABLES Fi nal Result [facility] EKG documented in this encounter Visit Diagnoses Not on filedocumented in this encounter Administered Medications Inactive Administered Medications - up to 3 most recent administrations Medication Order MAR Action Action Date Dose Rate Site aspirin EC tablet 81 mg 81 mg, oral, DAILY, First dose on 10/14/19 at 0900, Until Discontinued, Routine Given 10/15/2019 8:15 EDT 81 mg Given 10/14/2019 9:17 EDT 81 mg clopidogreL (PLAVIX) tablet 75 mg 75 mg, oral, DAILY, First dose on 10/14/19 at 0900, Until Discontinued, Routine Given 10/15/2019 8:15 EDT 75 mg Given 10/14/2019 9:17 EDT 75 mg desmopressin (DDAVP) tablet 0.2 mg 0.2 mg, oral, DAILY, First dose on 10/14/19 at 0900, Until Discontinued, Routine Given 10/15/2019 8:15 EDT 0.2 mg Given 10/14/2019 9:18 EDT 0.2 mg fentaNYL citrate (PF) injection PRN, Starting on 10/14/19 at 1115, Until 10/14/19 at 1210, Routine, Intraprocedure Given 10/14/2019 11:59 EDT 25 mc g Given 10/14/2019 11:36 EDT 25 mcg Given 10/14/2019 11:15 EDT 50 mcg heparin 1,000 unit/mL injection PRN, Starting on 10/14/19 at 1124, Until 10/14/19 at 1210, Routine, Intraprocedure Given 10/14/2019 11:24 EDT 5,000 Units iopamidoL (ISOVUE-370) injection PRN, Starting on 10/14/19 at 1206, Until 10/14/19 at 1210, Routine, Intraprocedure Given 10/14/2019 12:06 EDT 300 mL metoprolol (LOPRESSOR) tablet 12.5 mg 12.5 mg, oral, 2 TIMES DAILY, First dose on 10/14/19 at 0945, Until Discontinued, Routine Given 10/15/2019 8:15 EDT 12.5 mg Given 10/14/2019 20:35 EDT 12.5 mg Given 10/14/2019 10:57 EDT 12.5 mg midazolam (PF) (VERSED) injection PRN, Starting on 10/14/19 at 1115, Until 10/14/19 at 1213, Routine, Intraprocedure Given 10/14/2019 11:42 EDT 1 mg Given 10/14/2019 11:15 EDT 1 mg ramelteon (ROZEREM) tablet 8 mg 8 mg, oral, AT BEDTIME, First dose (after last modification) on 10/14/19 at 2100, Until Discontinued, Routine Given 10/14/2019 20:35 EDT 8 mg rosuvastatin (CRESTOR) tablet 20 mg 20 mg, oral, DAILY, First dose (after last modification) on 10/14/19 at 0900, Until Discontinued, Routine Given 10/15/2019 8:15 EDT 20 mg Given 10/14/2019 9:18 EDT 20 mg sodium chloride 0.9 % (NS) infusion FA IP EQF CONTINUOUS PRN FOR ONE STEP MEDS, Starting on 10/14/19 at 1115, Until 10/14/19 at 1210, Routine, Intraprocedure New Bag 10/14/2019 11:15 EDT 25 mL/hr 25 mL/hr documented in this encounter Historical Medications * This list may reflect changes made after this encounter. LORazepam (ATIVAN) 1 mg tablet Take 1 Tablet by mouth every 4 hours as needed for Anxiety. desmopressin (DDAVP) 0.1 mg tablet Take 2 Tablets by mouth daily. added in this encounter Active and Recently Administered Medications Times are shown in EDT. Scheduled Medication Order 10/13/2019 10/14/2019 10/15/2019 aspirin EC tablet 81 mg 81 mg, oral, DAILY, First dose on 10/14/19 at 0900, Until Discontinued, Routine 0917 (Given - Provider: Gunjan Silvestre RN)1112 ([facility] Hold - Provider: User Epic - Reason: Patient off unit)1218 ([facility] Unhold - Provider: User Epic) 0815 (Given - Provider: Alley Mendez RN) clopidogreL (PLAVIX) tablet 75 mg 75 mg, oral, DAILY, First dose on 10/14/19 at 0900, Until Discontinued, Routine 0917 (Given - Provider: Gunjan Silvestre RN)1112 ([facility] Hold - Provider: User Epic - Reason: Patient off unit)1218 ([facility] Unhold - Provider: User Epic) 0815 (Given - Provider: Alley Mendez RN) desmopressin (DDAVP) tablet 0.2 mg 0.2 mg, oral, DAILY, First dose on 10/14/19 at 0900, Until Discontinued, Routine 0918 (Given - Provider: Gunjan Silvestre RN)1112 ([facility] Hold - Provider: User Epic - Reason: Patient off unit)1218 ([facility] Unhold - Provider: User Epic) 0815 (Given - Provider: Alley Mendez, YOEL) heparin injection 5,000 Units (CANCELED) 5,000 Units, subcutaneous, EVERY 8 HOURS, First dose on 10/14/19 at 1600, Until Discontinued, Routine 1720 (Given - Provider: Gunjan Silvestre RN) metoprolol (LOPRESSOR) tablet 12.5 mg 12.5 mg, oral, 2 TIMES DAILY, First dose on 10/14/19 at 0945, Until Discontinued, Routine 1057 (Given - Provider: Gunjan Silvestre RN)1112 ([facility] Hold - Provider: User Epic - Reason: Patient off unit)1218 ([facility] Unhold - Provider: User Epic)203 (Given - Provider: Levar Killian RN) 0815 (Given - Provider: Alley Mendez RN) ramelteon (ROZEREM) tablet 8 mg 8 mg, oral, AT BEDTIME, First dose (after last modification) on 10/14/19 at 2100, Until Discontinued, Routine 1112 ([facility] Hold - Provider: User Epic - Reason: Patient off unit)1218 ([facility] Unhold - Provider: User Epic)2034 (Given - Provider: Levar Killian RN) rosuvastatin (CRESTOR) tablet 20 mg 20 mg, oral, DAILY, First dose (after last modification) on 10/14/19 at 0900, Until Discontinued, Routine 0918 (Given - Provider: Gunjan Silvestre RN)1112 ([facility] Hold - Provider: User Epic - Reason: Patient off unit)1218 ([facility] Unhold - Provider: User Epic) 0815 (Given - Provider: Alley Mendez RN) Continuous Medication Order 10/13/2019 10/14/2019 10/15/2019 heparin in 1/2 NS 25,000 unit/250 mL infusion (CANCELED) 13 Units/kg/hr ? 77.3 kg Adjusted weight (10.049 mL/hr, rounded to 10 mL/hr), intravenous, CONTINUOUS, Starting on Wed10/13/19 at 2315, Until 10/14/19 at 1210, Routine 2328 (New Bag - Provider: Levar Killian RN) 0451 (Rate Documented - Provider: Levar Killian RN)0603 (Rate Change - Provider: Levar Killian RN)1038 (New Bag - Provider: Gunjan Silvestre RN)1110 (IV Stopped - Provider: Afshin Caballero RN - Comment: stopped for labor conciliator) PRN Medication Order 10/13/2019 10/14/2019 10/15/2019 acetaminophen (TYLENOL) tablet 650 mg 650 mg, oral, EVERY 4 HOURS PRN, Starting on Wed10/13/19 at 2249, Until 10/15/19 at 1234, Pain, Routine 1112 ([facility] Hold - Provider: User Epic - Reason: Patient off unit)1218 ([facility] Unhold - Provider: User Epic) fentaNYL citrate (PF) injection (CANCELED) PRN, Starting on 10/14/19 at 1115, Until 10/14/19 at 1210, Routine, Intraprocedure 1115 (Given - Provider: Alex Reynolds RN)1136 (Given - Provider: Debora Reynolds RN)1159 (Given - Provider: Debora Reynolds RN) heparin 1,000 unit/mL injection (CANCELED) PRN, Starting on 10/14/19 at 1124, Until 10/14/19 at 1210, Routine, Intraprocedure 1124 (Given - Provider: Alex Reynolds RN) iopamidoL (ISOVUE-370) injection (CANCELED) PRN, Starting on 10/14/19 at 1206, Until 10/14/19 at 1210, Routine, Intraprocedure 1206 (Given - Provider: Alex Reynolds RN - Comment: cardiac cath) midazolam (PF) (VERSED) injection (CANCELED) PRN, Starting on 10/14/19 at 1115, Until 10/14/19 at 1213, Routine, Intraprocedure 1115 (Given - Provider: Alex Reynolds RN)1142 (Given - Provider: Debora Reynolds RN) senna (SENOKOT) tablet 1 Tab 1 Tablet, oral, AT BEDTIME PRN, Starting on 10/13/19 at 2249, Until 10/15/19 at 1234, Constipation, Routine 1112 ([facility] Hold - Provider: User Epic - Reason: Patient off unit)1218 ([facility] Unhold - Provider: User Epic) sodium chloride 0.9 % (NS) infusion (CANCELED) FA IP EQF CONTINUOUS PRN FOR ONE STEP MEDS, Starting on 10/14/19 at 1115, Until 10/14/19 at 1210, Routine, Intraprocedure 1115 (New Bag - Provider: Afshin Caballero RN) documented in this encounter Orders Medications Ordered That Jaylan ht Not Have Been Administered Count Last Ordered Date First Ordered Date desmopressin (DDAVP) tablet 0.2 mg 1 2019 fentaNYL citrate (PF) 50 mcg/mL injection 10/14/2019 heparin 1,000 unit/mL injection 0 heparin injection 5,000 Units 10/14/2019 lidocaine 20 mg/mL (2 %) injection 2019 metoprolol (LOPRESSOR) tablet 12.5 mg 1 midazolam (PF) (VERSED) 1 mg/mL injection 10/14/2019 nitroglycerin 100 mcg/mL syringe 10/14/19 20 ramelteon (ROZEREM) tablet 8 mg 2 0 10/13/2019 rosuvastatin (CRESTOR) tablet 10 mg 1 10/13 rosuvastatin (CRESTOR) tablet 20 mg 2 10/13 verapamiL (ISOPTIN) 2.5 mg/mL injection 1 0 10/14/2019 acetaminophen (TYLENOL) tablet 650 mg 1 aspirin EC tablet 81 mg 1 10/13/2019 clopidogreL (PLAVIX) tablet 75 mg 1 020 heparin 1,000 unit/mL inject ion 2,700 Units 1 10/13/2019 heparin 1,000 unit/mL inject ion 5,400 Units 1 10/13/2019 heparin in 05/18 NS 25,000 uni t/250 mL infusion 2 10/13/2019 nitroglycerin 400 mcg/ml in D5W 250 ml infusion 1 10/13/2019 senna (SENOKOT) tablet 1 Tab 1 10/13/2019 Diet Count Last Ordered Date First Orde red Date DISCHARGE DIET 3 10/15/2019 Nursing Count Last Ordered Date First Orde red Date ACTIVITY INSTRUCTIONS 1 10/15/2019 WOUND CARE INSTRUCTIONS 2 10/15/2019 PATIENT AT LOW RISK FOR VTE: RISK OF MECHANICAL PROPHYLAXIS OUTWEIGHS 1 10/14/2019 PATIENT AT LOW RISK FOR VTE: RISK OF PHARMACOLOGIC PROPHYLAXIS OUTWEIG 1 10/14/2019 Admission Count Last Ordered Date First Orde red Date ADMIT TO INPATIENT 1 10/13/2019 Transfer Count Last Ordered Date First Orde red Date ED BED REQUEST 1 10/13/2019 TEACHING SERVICE 1 10/13/2019 Discharge Count Last Ordered Date First Orde red Date DISCHARGE PATIENT 1 10/15/2019 Legal Count Last Ordered Date First Orde red Date MISCELLANEOUS DISCHARGE INSTRUCTIONS 4 09/16 Case Request Count Last Ordered Date First Orde red Date 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
--- OUTSIDE RECORDS SUMMARY | 2024-06-08 21:20 | XMS_ITS | Encounter Summary ---
Author Organization [facility] [place] [address] Care Team Providers Care Marketing Team Lead Name Role Phone Ceasar Pratt MD Primary Care Provider Marva le Encounter Details Date Type Department Care Team (Late st Contact Info) Description 08/12/2020 [place] [address] Kyra Schaffer Social History Tobacco Use Types Packs/Day Years [...] encounter Miscellaneous Notes * Telephone Encounter - Kyra Schafefr - 08/12/2020 11:22 AM EDT Naseem Cadena [id number] Diagnosis/Indication: [place] 1. Have you ever had a/an Colonoscopy before? Yes: Date 09/14/12 If yes, did you have any problems with the procedure? No What type of sedation was used: IV Conscious Sedation 2. Do you take any blood thinners or have you been diagnosed with a bleeding disorder that increases your risk of bleeding with procedures? Yes: Type: Plavix 3. Do you have a Pacemaker or Defibrillator device? No 4. Are you a diabetic? No 5. Do you have any Allergies to Eggs, Latex or Medications? No 6. Do you take any Oral Iron Supplements (Including multi-vitamins)? No 7. Do you have a history of three or more abdominal surgeries? No 8. Have you had a problem with sedation or anesthesia? No 9. Do you use a c-pap machine or oxygen tank? Neither 10. Do you take prescription narcotic pain medications, including suboxone or methodone? No 11. Do you have a preference regarding the gender of your provider? No Preference 12. Is there any other information you would like to us to note for the provider and nursing team who will perform your case? No 13. Say to patient: You must have a responsible alliance party who will drive you to your procedure, stay [place] for the entire duration of your procedure, and drive you home from your procedure? *Please Verify the height and weight, and adjust if height and/or weight have changed* There is no height or weight on file to calculate BMI. *Delete if not needed* Height: 5'7 Weight: 200 BMI: 31.3 Age:80 y.o. documented in this encounter Plan of Treatment Not on file documented as of this encounter Visit Diagnoses Not on filedocumented in this encounter Care Teams Marketing Team Lead Relationship Specialty Start Date End Date Ceasar Pratt MD PCP - General 04/08/10 05/25/24 documented as of this encounter
--- OUTSIDE RECORDS SUMMARY | 2024-06-08 21:20 | XMS_ITS | Encounter Summary ---
[place] [address] Care Team Providers Care Clinical Ob Name Role Phone Ceasar Pratt MD Primary Care Provider Unavailab le Encounter Details Date Type Department Care Team (Late st Contact Info) Description 09/14/2012 9:00 AM EDT Office [place] [phone] Jennifer Sanchez MD Pituitary abnormality (Primary Dx); Diabetes insipidus; Pituitary insufficiency Discharge Disposition: Home Social History Tobacco Use [...] Sign Reading Time Taken Comments Blood Pressure 136/83 09/14/2012 8:57 AM EDT Pulse 59 09/14/2012 8:57 AM EDT Temperature - - Respiratory Rate - - Oxygen Saturation - - Inhaled Oxygen Concentration - - Weight 89.6 kg (197 lb 9.6 oz) 09/14/2012 8:57 A M EDT Height - - Body Mass Index - - documented in this encounter Progress Notes * Jennifer Sanchez MD - 09/14/2012 9:30 AM EDT PRIMARY CARE PROVIDER: Ceasar Pratt M.D. Mr. Flynn is a 72-year-old man here for evaluation of diabetes insipidus. He was seen by Dr. Cast, our endocrine fellow three years ago. At diagnosis, he presented with polyuria, polydipsia, and enuresis. He had laboratory testing consistent with diabetes insipidus, a 24-hour urine potassium 29 (normal 25- 150), a 24-hour urine sodium 24 (normal 40-220), urine volume 3.1, serum osmolality 311, urine osmolality 225. He was started on desmopressin 0.1 mg twice a day. A CT showed no pituitary tumor. MRI scan showed no pituitary bright spot. Further evaluation included iron studies, which were normal, a chest x-ray was negative, calcium was normal, LH, FSH, and testosterone normal, TSH and free T4 were normal. He has been maintained on the desmopressin 0.1 mg twice a day and has sodium levels checked usually about twice a year and they have been fine. If he misses one dose of his desmopressin probably three times a week, he does notice breakthrough thirst. He does self-catheterization for flaccid bladder, so he is not aware of polyuria, and has not noticed whether there has been change in the urine concentration or volume when he misses a dose, but when he takes his DDAVP twice a day, his thirst is fine and he feels fine and his serum sodium has been normal. He has no symptoms of anterior pituitary insufficiency. Denies nervousness, irritability, tremor, palpitations, heat intolerance, change in his weight, hair, skin, mood, bowels, myalgias, arthralgias, fatigue, or lethargy. No fevers. He has had some mild lower abdominal pain and is having colonoscopy today. Gonadal function has been fine. He has good erectile function with Viagra, occasional morning erections, good libido, no symptoms growth hormone excess. Of note, he has been dieting and lost 13 pounds intentionally. 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 PAST SURGICAL HISTORY: Pilonidal cyst extraction and leg surgery in infancy for the rickets. Current Outpatient Prescriptions on File Prior to Visit Medication Sig Dispense Refill ??? sildenafil (VIAGRA) 100 mg tablet No Known Allergies SOCIAL HISTORY: He is , in 1977, and , has two children, two grandchildren. 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 He lives in [place], [place]. Quit smoking years ago. Alcohol rare, he has been a heavy drinker in the past, currently down in about 2006 and 2007. FAMILY HISTORY: Mother had breast cancer. Father with Hodgkin's disease. He has two sisters with history of breast cancer, they are both living and well, one has early dementia. A complete review of systems is positive for the weight loss and the bladder issues but otherwise negative. PHYSICAL EXAMINATION: Blood pressure 136/83, pulse 59, weight 197 pounds. In general, he is a well-developed older man in no acute distress. HEENT: Extraocular movements intact. No lid lag or stare. Visual rocha are full to confrontation. Pharynx was clear. Neck was supple. Lungs: Clear to auscultation and percussion. Spine: No point tenderness. Cardiac Exam: Regular rhythm. Abdomen: Bowel sounds active. Soft and nontender. No organomegaly or masses. Extremities: No edema. Skin: Smooth, warm, and dry. Neurologic Exam: Motor strength and tone are normal. Gait is normal. Psychiatric: Mood and affect appropriate. LABORATORY TESTS: Earlier this month sodium 144, potassium 4.6, chloride 108. IMPRESSION/PLAN: Mr. Flynn is a 72-year-old man with idiopathic diabetes insipidus. He looks well-compensated on desmopressin 0.1 mg twice a day and will continue that for now. We will check anterior pituitary function measuring the morning cortisol, T4, prolactin, and IGF-1. If these are normal, he will continue his regular followup with Dr. Pratt and I will just be available as needed in the future. Recent Results (from the past 72 hour(s)) T4 Component Value Range T4, total 6.9 5.1 - 10.8 mcg/dL CORTISOL Component Value Range Cortisol 10.4 PROLACTIN Component Value Range Prolactin 7.7 4.0 - 15.2 ng/mL COLONOSCOPY Component Value Range COLONOSCOPY Value: [facility] Endoscopy Patient Name: Naseem Flynn Procedure Date: 09/14/2012 10:28 AM Date of : 1940 Age: 72 Order #: [id number] Procedure: Colonoscopy Indications: Screening for colorectal malignant neoplasm Providers: Matt Rasheed MD, Shalonda Bonner RN, Samantha Pollard, Tyre Builder, Jaswinder Wren MD Referring MD: Ceasar Pratt MD Medicines: Midazolam 4 mg IV, Fentanyl 175 micrograms IV Complications: No immediate complications. Procedure: Pre-Anesthesia Assessment: - ASA Grade Assessment: I - A normal, healthy patient. The procedure, indications, benefits, risks and alternatives were explained to the patient. Specifically discussed were potential complications including, but not limited to, bleeding, perforation, infection, missing a cancer, and adverse medication reactions. The patient was placed in the left lateral decubitus position, and a digital rectal exam was performed. The Colonoscope was inserted in the anus and under direct visualization, advanced to the terminal ileum. Careful inspection was made as the colonoscope was withdrawn. The colonoscopy was performed without difficulty. The patient tolerated the procedure well. The quality of the bowel preparation was excellent. Scope withdrawal time was 16 minutes. Findings: A sessile polyp was found in the cecum. The polyp was 2 mm in size. The polyp was removed with a cold snare. Resection and retrieval were complete. Multiple small and large-mouthed diverticula were found in the sigmoid colon and in the descending colon. The terminal ileum appeared normal. A sessile polyp was found in the cecum. The polyp was 2 mm in size. The polyp was removed with a cold snare. Resection and retrieval were complete. Multiple small and large-mouthed diverticula were found in the sigmoid colon and in the descending colon. The terminal ileum appeared normal. A sessile polyp was found in the cecum. The polyp was 2 mm in size. The polyp was removed with a cold snare. Resection and retrieval were complete. Multiple small and large-mouthed diverticula were found in the sigmoid colon and in the descending colon. The terminal ileum appeared normal. Impression: - One 2 mm polyp in the cecum. Resected and retrieved. - Diverticulosis in the sigmoid colon and in the descending colon. - The examined portion of the ileum was normal. Recommendation: - Await pathology results. Matt Rasheed MD 09/14/2012 11:27 AM This report has been signed electronically. Number of Addenda: 0 Note Initiated On: 09/14/2012 10:28 AM SURGICAL PATHOLOGY REPORT Component Value Range Surgical Pathology Final Report Value: [facility] Provider: MATT RASHEED Pt. Name: NASEEM FLYNN Acc #: [id number] Pt. Col Date: 09/14/2012 /Sex: 1940,(72 years),Male Rec Date: 09/14/2012 LOC: 4T SURGICAL PATHOLOGY ---Pathologic Diagnosis--- Endoscopic biopsy - Tubular adenoma. Cr-PX 09/15/12 AAS 09/15/12 Verified by: Sahra Zuñiga MD Pathologist (Electronic Signature) The attending pathologist whose signature appears on this report has reviewed all diagnostic slides and has edited the gross and/or microscopic portion of the report in rendering the final pathologic diagnosis. ---Gross Description--- A- Labeled/Fixative: 2 mm cecal polyp snared, formalin. Quantity/Size: Single, 0.3 x 0.2 x 0.2 cm. Tissue Description: Soft, yellow-rivers tissue. Sections/Processing: (T1) ejr ---Clinical Information--- Specimen Submitted: A - 2mm cecal polyp snared Clinical History: Patient with polyps Clinical Diagnosis: Same documented in this encounter Plan of Treatment Not on file documented as of this encounter Procedures Procedure Name Priority Date/Time Associated Diagnosis Comments INSULIN LIKE GF-1 Routine 09/14/2012 9:3 5 AM EDT Pituitary abnormality Diabetes insipidus PROLACTIN Routine 09/14/2012 9:35 AM EDT Pituitary abnormality Diabetes insipidus T4 TOTAL Routine 09/14/2012 9:35 AM EDT Pituitary abnormality Pituitary insufficiency CORTISOL Routine 09/14/2012 9:35 AM EDT Pituitary abnormality Diabetes insipidus documented in this encounter Results * T4 (09/14/2012 9:35 AM EDT) Pathologist [facility] T4 Total 6.9 5.1 - 10.8 mcg/dL [facility] Comment: Reference Range: Cord Blood: ??6.9-14.4 mcg/dL Females: ??7.2-14.2 mcg/dL Pediatric ranges: ??Interpret with caution-ranges have not been verified Blood specimen (specimen) 09/14/2012 9:35 AM EDT 09/14/2012 9:48 AM EDT Narrative Resulting Agency Comment Spec In Lab Jennifer Sanchez MD CHEMISTRY ORDERAB LES [facility] * [place] C (09/14/2012 9:35 AM EDT) [facility] 1 79 ng/mL [facility] Comment: Age ?Term Range ng/mL ? Range ng/mL ?15 to 109 ?21 to 93 2m ?15 to 109 ?23 to 163 4m ?7 to 124 ? 23 to 171 6m ?7 to 93 ?15 to 132 12m ?15 to 101 ?15 to 179 FEMALE: Age ? Range ng/mL 1 to 2y ?56 to 144 Age ?Dillon ? Range ng/mL 3y ? 1 ?26 to 162 4y ? 1 ?32 to 179 5y ? 1 ?39 to 198 6y ? 1 ?47 to 217 7y ? 1 ?55 to 238 8y ? 1 ?64 to 259 8y ? 2 ?89 to 369 9y ? 1 ?74 to 282 9y ? 2 ?96 to 399 9y ? 3 ?192 to 568 10y ?1 ?85 to 306 10y ?2 ?104 to 431 10y ?3 ?192 to 568 10y ?4&5 ?279 to 664 11y ?1 ?97 to 332 11y ?2 ?112 to 466 11y ?3 ?192 to 568 11y ?4&5 ?268 to 646 12y ?1 ?110 to 358 12y ?2 ?121 to 504 12y ?3 ?192 to 568 12y ?4&5 ?248 to 612 13y ?2 ?131 to 545 13y ?3 ?192 to 568 13y ?4&5 ?229 to 579 14y ?2 ?136 to 566 14y ?3 ?192 to 568 14y ?4&5 ?211 to 547 15y ?3 ?192 to 568 15y ?4&5 ?194 to 516 16y ?4&5 ?177 to 487 17y ?4&5 ?162 to 458 18y ?4&5 ?147 to 430 Adult Females: ?? Age ? Range ng/mL 19 to 20y ?217 to 475 21 to 30y ? 87 to 368 31 to 40y ?106 to 368 41 to 50y ?118 to 298 51 to 60y ? 53 to 287 61 to 70y ? 75 to 263 71 to 80y ? 54 to 205 MALE: Age ? Range ng/mL 1 to 2y ?30 to 122 Age ? Dillon ?Range ng/mL 3y ?1 ? 20 to 141 4y ?1 ? 25 to 157 5y ?1 ? 30 to 174 6y ?1 ? 37 to 192 7y ?1 ? 44 to 211 8y ?1 ? 52 to 231 8y ?2&3 ? 39 to 264 9y ?1 ? 61 to 252 9y ?2&3 ? 52 to 304 10y ? 1 ? 71 to 275 10y ? 2&3 ? 67 to 347 11y ? 1 ? 82 to 299 11y ? 2&3 ? 86 to 393 11y ? 4&5 ? 277 to 673 12y ? 1 ? 93 to 324 12y ? 2&3 ? 106 to 443 12y ? 4&5 ? 265 to 652 13y ? 1 ? 106 to 350 13y ? 2&3 ? 130 to 497 13y ? 4&5 ? 241 to 612 14y ? 1 ? 120 to 377 14y ? 2&3 ? 156 to 554 14y ? 4&5 ? 220 to 574 15y ? 1 ? 127 to 391 15y ? 2&3 ? 185 to 616 15y ? 4&5 ? 199 to 537 16y ? 2&3 ? 201 to 648 16y ? 4&5 ? 180 to 501 17y ? 4&5 ? 161 to 467 18y ? 4&5 ? 144 to 434 Adult Males: ?? Age ? Range ng/mL 19 to 20y ?281 to 510 21 to 30y ?155 to 432 31 to 40y ?132 to 333 41 to 50y ?121 to 237 51 to 60y ? 68 to 245 61 to 70y ? 60 to 220 71 to 80y ? 36 to 215 Test performed by [employer] [facility], [facility], ??[place] [id number] Blood specimen (specimen) 09/14/2012 9:35 AM EDT 09/14/2012 11:15 AM EDT Narrative Resulting Agency Comment Spec In Lab Jennifer Sanchez MD LAB SEND OUT ORDE BRENDAN Performing Organization Address [facility] Co de Phone Number LEONCIO MARQUES * Prolactin (09/14/2012 9:35 AM EDT) Prolactin 7.7 4.0 - 15.2 ng/mL LEONCIO SANCHEZIUM Blood specimen (specimen) 09/14/2012 9:35 AM EDT 09/14/2012 9:48 AM EDT Narrative Resulting Agency Comment Spec In Lab Jennifer Sanchez MD CHEMISTRY ORDERAB LES Performing Organization Address [facility] de Phone Number LEONCIO MARQUES * Cortisol (09/14/2012 9:35 AM EDT) Cortisol 10.4 mcg/dL LEONCIO MARQUES Comment: Reference ranges: ??AM (7-10am): ??6.2-19.4 mcg/dL ??PM (4-8pm): ??2.3-12.3 mcg/dL Blood specimen (specimen) 09/14/2012 9:35 AM EDT 09/14/2012 9:48 AM EDT Narrative Resulting Agency Comment Spec In Lab Jennifer Sanchez MD CHEMISTRY ORDERAB LES Performing Organization Address 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
--- OUTSIDE RECORDS SUMMARY | 2024-06-08 21:20 | XMS_ITS | Encounter Summary ---
Author Organization [facility] Address [facility] [place] [address] Care Team Providers Care Fire Boat Engineer Name Role Phone Ceasar Pratt MD Primary Care Provider [facility] le Encounter Details Date Type Department Care Team (Latest Contact Info) Description 09/17/2020 1:16 PM EDT - 09/17/2020 4:30 PM EDT Hospital [place] [phone] Asim Hawley MD [facility] [place] [place] [address] Discharge Disposition: Home Social History Tobacco Use [...] Sign Reading Time Taken Comments Blood Pressure 144/93 09/17/2020 4:10 PM EDT Pulse 63 09/17/2020 3:35 PM EDT Temperature 36.2 ??C (97.1 ??F) 09/17/2020 1:56 PM ED T Respiratory Rate 16 09/17/2020 4:10 PM EDT Oxygen Saturation 97% 09/17/2020 4:10 PM EDT Inhaled Oxygen Concentration - - [...] occurs, please contact your Doctor. Please call [phone] before 8pm Mon-Fri with problems, questions or concerns. If you call after 8pm or on weekends, call the Hospital at [phone] and ask to speak to the Junior Technical Writer associate professor of education and the charging board operator will contact that person for you. When should you call for help? Call [phone] anytime you think you may need emergency [...] any problems. Where can you learn more? [facility] View your After Visit Summary and more online at [email or web address] If you would like to [...] cost to you. Content Version: 12.2 ?? [id number] [employer]. Care instructions adapted under license by [facility]. If you have questions about a medical condition or this instruction, always ask your healthcare professional. [employer] disclaims any warranty or liability for your [...] 1 tablet by mouth every other day. Addison-3 Fatty Acids (FISH OIL) 300 mg Cap [...] a 80 y.o. man with TA in 2012 here for colonoscopy There is no problem [...] Operative Note Patient Name: Naseem Cadena : [id number] MR#: [id number] Case Date: 09/17/2020 Surgeon: Surgeon(s) and Role: [...] Routine 09/17/2020 3:32 PM EDT Colonoscopy, Remv Lesn, Snare ([id number]) 09/17/2020 3:04 PM EDT Screening COLONOSCOPY Routine 09/17/2020 3:00 PM EDT documented in this encounter Results * Surgical Pathology Report (09/17/2020 3:32 PM EDT) Final Diagnosis [id number] ? Location: 4T; EA12; A The signing pathologist has (i) examined the relevant preparation(s) for the specimen(s) and (ii) rendered or confirmed the diagnosis(es). . ?Surgical Pathology DIAGNOSIS A - Cecum and transverse colon polyps, excision: Tubular adenoma. Separate colonic mucosa with lymphoid aggregates. CR-PX Electronically signed by: ?Ivan CONTRERAS, Sanjuanita Verified: ??09/22/2020 8:56 ?? Pathologist Performed at: ??-[facility] Dept. of Pathology, [place], [place] SPECIMEN(S) SUBMITTED A - Cecum and [...] and quadrasected ??MLL 09/22/2020 8:56 AM EDT [facility] GI Biopsy 09/17/2020 3:32 PM EDT 09/17/2020 3:32 PM EDT Burton Casey MD PATHOLOGY/CYTOLOGY O RDERABLES [facility] [place] [address] * Specimen to Pathology (09/17/2020 3:32 PM EDT) AP Specimen 09/17/2020 3:32 PM EDT 09/17/2020 3:32 PM EDT Narrative [facility] - 09/17/2020 3:32 PM EDT Specimen requisition ordered. ??Separate Pathology report to follow Burton Casey MD PATHOLOGY/CYTOLOGY O RDERABLES Performing Organization Address [facility]/State/ZIP Co de Phone Number [facility] [place] [address] * COLONOSCOPY (09/17/2020 3:00 PM EDT) COLONOSCOPY [facility] Procedure Date: 09/17/2020 3:00 PM ? Patient Name: Naseem Cadena ? Date of : 1940 ? Age: 80 ? Order #: [id number] ? Instrument Name: [id number] ? Procedure: ? Colonoscopy Indications: ? High risk colon cancer surveillance: ? Personal history of colonic polyps Providers: ? Tona Denton ? Rajesh Fry, ? Medical Assistant Instructor Referring MD: ?Ceasar Pratt MD Medicines: ? [...] MAR Action Action Date Dose Rate Site lactated ringers infusion 100 mL/hr, Intravenous, CONTINUOUS, Starting on Wed09/17/20 at 1400, Until Wed09/17/20 at 1617, Endoscopy (Day of Procedure) New Bag 09/17/2020 2:08 PM EDT 100 mL/hr 100 mL/hr documented in this encounter Active and Recently Administered Medications Times are shown in EDT. Continuous Medication Order 09/15/2020 09/16/2020 09/17/2020 lactated ringers infusion (CANCELED) 100 mL/hr, Intravenous, CONTINUOUS, Starting on Wed09/17/20 at 1400, Until Tu09/17/20 at 1617, Endoscopy (Day of Procedure) 1408 [...] PRN, Starting on 09/17/20 at 1507, Until Tu09/17/20 at 1831, Intra-Operative (Intra-Procedure), Routine 1507 (Given - Provid er: Tona Fry RN)1510 (Given - Provider: Tona Fry RN)1513 (Given - Provider: Tona Fry RN) documented in this encounter Care Teams Fire Boat Engineer Relationship Specialty Start Date End Date Ceasar Pratt MD PCP - General 04/08/10 05/25/24 documented as of this encounter
--- OUTSIDE RECORDS SUMMARY | 2024-06-08 21:20 | XMS_ITS | Encounter Summary ---
Author Organization [facility] Address [address] [place] [address] Care Team Providers Care Sql Engineer Name Role Phone ErichAlexis castro Primary Care Provider [phone] Reason for Referral * (Routine) - Receiving Office to Obtain Authorization Specialty Diagnoses / Procedures Referred By Contac t Referred To Contact Procedures CT OUTSIDE IMAGES CHEST Unknown, Provider, MD Referral ID Status Reason Start Date Expiration Date Visits Requested Visits Authorized [id number] Receiving Office to Obtain Authorization 10/14/2019 1 1 Reason for Visit * Reason Comments Chest Pain * Auth/Cert Specialty Diagnoses / Procedures Referred By Abhishek t Referred To Contact Diagnoses NSTEMI (non-ST elevated myocardial infarction) ([facility]) NSTEMI (non-ST elevated myocardial infarction) ([facility]) NSTEMI Referral ID Status Reason Start Date Expiration Date Visits Re quested Visits Authorized [id number] 1 1 Encounter Details Date Type Department Care Team (Late st Contact Info) Description 10/13/2019 20:31 EDT - 10/15/2019 10:34 EDT Hospital Encounter [facility] Cardiac Unit [address] [place], [place] [id number] Donnie Romeo MD MSc [address] [facility], [address] [place] [id number] Kentrell Byrne MD NSTEMI (non-ST elevated myocardial infarction) ([facility]) (Primary Dx); Coronary artery disease without angina pectoris, unspecified vessel or lesion type, unspecified whether [place] or transplanted heart Discharge Disposition: Home or Self Care Social [...] Sign Reading Time Taken Comments Blood Pressure 125/80 10/15/2019 0813 EDT Pulse 66 10/15/2019 0430 EDT Temperature 36.1 ??C (97 ??F) 10/15/2019 0813 EDT Respiratory Rate 16 10/15/2019 0813 EDT Oxygen Saturation 97% 10/15/2019 0813 EDT Inhaled Oxygen Concentration - - Weight 98 kg (216 lb) 10/15/2019 0300 EDT Height 170.2 cm (5' 7) 10/14/2019 [...] Admitting Diagnosis: NSTEMI (non-ST elevated myocardial infarction) ([facility]) Final Hospital Diagnosis: NSTEMI Additional Problems Managed in the Hospital Active Hospital Problems Diagnosis Date Noted ??? *NSTEMI (non-ST elevated myocardial infarction) ([facility]) 10/13/2019 Resolved Hospital Problems No resolved problems to display. Principal Procedure: [facility] 10/14/2019 Left main: nl Left anterior descendin% [...] DI and anxiety who presented initially to [facility] with chest pain for 2 days. Patient described non-exertional chest pain, worse laying flat. Troponin at OSH was 4.98 with no ischemic EKG changes. He was transferred to [facility] for management of NSTEMI. On arrival, patient [...] Procedure Component Value Units Date/Time Hemoglobin A1c [[id number]] Collected: 10/13/192055 Lab Status: In process Specimen: [...] Code Departure Means Destination Home or Self Residential documented in this encounter Progress Notes * Levar Killian RN - 10/15/2019 0135 EDT Admit Date: 10/13/2019 Date of Service: 10/15/2019 PCP: Alexis Jung Code Status: Full Code Blood pressure 138/81, pulse 70, temperature 35.9 ??C (96.6 ??F), temperature source Tympanic, resp. rate 16, height 170.2 cm (67), weight 97.5 kg (215 lb), SpO2 98 %. Data: LOS: 2, Pt admitted for NSTEMI (non-ST elevated myocardial infarction) ([facility]), pt is a/o x3, movement: independent, events: NAEO, rhythm: NSR, plan: D/C Action: medications given per JUL, monitored tele per protocol Response: pt slept well with NAEO, Will continue to monitor and adjust interventions as necessary. * Juwan Cox MD - 10/14/2019 1237 EDT Cardiology Progress note Service Date: 10/14/2019 [...] Medications Reviewed Labs Reviewed CBC: Recent Labs 10/13/19204810/14/19519 WBC 7.22 7.39 HGB 14.3 13.5* HCT 40.7 39.7 MCV 89 89 PLT 168 152 BMP: Recent Labs 10/13/19204810/14/19 05 CREATININE 1.03 0.98 BUN 25 -- NA 137 137 K 4.0 3.8 CL 107 108 CO2 22 23 MG 2.0 -- Coags: Recent Labs 10/13/192048 PROTIME 12.1 INR 1.0 PTT 111* LFTs: No results for input(s): ALT, AST, GGT, ALKPHOS, TBIL in the last 72 hours. Cardiac Biomarkers: Recent Labs 10/13/19204810/14/19519 TROPONINI 3.930* 5.520* Lipids: Recent Labs 10/13/192055 CHOL 182 TRIG 119 HDL 36 LDLBASE 122 CHOLHDL 5.1 Assessment/Plan Assessment/Plan William Cadena is a 79 y.o. male with a PMHx significant for DI and anxiety who presented initially to [facility] with chest pain. Underwent [facility] 10/13 and [...] -Cycle troponin to peak ?? Diabetes insipidus -TRAINING DEVELOPMENT MANAGER Desmopressin 0.2 mg daily VTE Prophylaxis Pharmacologic [...] admitted for NSTEMI (non-ST elevated myocardial infarction) ([facility]), pt is a/o x3, movement: independent, events: NAEO, rhythm: NSR, plan: NPO for [facility] on 10/13 Action: medications given per MAR, monitored tele per protocol, HEP AND NITRO gtt maintained per protocol Response: pt slept well with NAEO, Will continue to monitor and adjust interventions as necessary. * Christiano Montgomery MD - 10/14/2019 0000 EDT October 14, 2019 Alexis Jung DO [address], [address] [place] [address] Dear Juan Francisco: I am writing in regards to William Cadena. Briefly, he is a 79-year-old gentleman without prior cardiac history, who presented with new onset chest pain and ruled in for a non-ST segment elevation OH. Today, we brought William to the cardiac [facility]. Coronary arteriography demonstrated a normal left main. [...] Montgomery MD 12 13 PM / Christiano Wood. MD Ulises cn Confirmation: [id number] Dictation ID: [id number] cc:Alexis Jung DO documented in this encounter H&P Notes * HoldeneladioKentrell - 10/13/20192043 EDT Images from the original note were not included. Cardiology Admission History & Physical Service Date: 10/13/2019 Admit Date: 10/13/2019 20:31 Primary Care Provider: Alexis Jung Chief Complaint: Chest pain HPI William Cadena is a 79 y.o. male with a PMHx of DI and anxiety who presented initially to [facility] with chest pain. Course at [facility]: BP 346/68, HR 66, SpO2 98% [...] symptoms in the past. On arrival to [facility], patient reports resolution of chest pain. Patient [...] DI and anxiety who presented initially to [facility] with chest pain. Admitted for NSTEMI and chest pain improved with exertion. Plan NSTEMI: Tn 4.98 at OSH, 3.93 here. No EKG changes. -Heparin gtt -ASA 81 mg daily (s/p 324 mg load at OSH) -Plavix 75 mg daily (s/p 600 mg load at OSH) -Rosuvastatin 20 mg daily -Cycle troponin to peak -FLP & A1c -TTE ordered -Plan for [facility] tomorrow/Wednesday; NPO after midnight Diabetes insipidus -TRAINING DEVELOPMENT MANAGER Desmopressin 0.2 mg daily VTE Prophylaxis: Heparin gtt Code: FULL Bria Payton MD 10/13/2019 Internal Medicine PGY2 Pager #[phone] I have seen and examined this patient. I have reviewed the history and physical exam written by theresident physician. In addition, I have reviewed the plan, have discussed with resident staff, and agree with the plan as written. Jens Byrne MD, #[id number] documented in this encounter Procedure Notes * [...] artery Procedure: He was brought to [facility]iac [facility]atheter[facility] for the [...] Follow Up: Patient to follow up with [facility] cardiology in 2 weeks Post Interventional Conclusion/Physician Disposition: (check one main category) Inpatient procedure, continue inpatient status (no procedural complication required) Christiano Montgomery MD PagerNumber: [phone] 10/14/2019 12:07 documented in this encounter ED [...] exam for emergent medical conditions at the [facility] on 10/13/2019 Scribe attestation: This documentation is recorded by Kary Ro acting as Scribe under the direction and presence of Donnie Romeo MD. Donnie Romeo MD: I personally performed the services recorded by the scribe in my presence. I confirm the scribe's documentation has been reviewed by me to accurately and completely record my work, treatment, procedures, and medical decision making. CHRISSY Cadena is a 79 y.o. male with no PMH on file who presents to the ED as a transfer from [facility] for evaluation of NSTEMI. According to outside records, the patient presented today for intermittent, crushing, substernal chest pressure that began last night. Reportedly, the painradiated to his back and bilateral shoulders. EKG at OSH showed WA depression in 3 and aVF and his CTA showed no aortic dissection. He was given ASA and Plavix. His Troponin was abnormal at 4.98. [facility] was unable to receive the patient [...] man who presents as a transfer from [facility] where he presented with chest pain that [...] by Dr. Byrne. R: Remains NPO for [facility]. CTM. documented in this encounter Plan of [...] HEPARIN STAT 10/13/2019 23:07 EDT ZZCOVID-19 TEST [facility] LAB PCR STAT 10/13/2019 22:23 EDT COVID-19 [...] EDT) 10/23/2019 7:44 EDT us Scan 2 Microsoft Access Developer PROCEDURE/MINOR SURGICAL OR DERABLES Final Result * ECG REPORT - SCANNED (10/18/2019 11:39 EDT) 10/18/2019 11:3 9 EDT us Scan 2 [employer] Access Developer PROCEDURE/MINOR SURGICAL OR DERABLES Final Result * (ABNORMAL) TROPONIN I (10/15/2019 4:27 EDT) Troponin I (ng/mL) 15.300(H) <0.034 ng/mL 10/15/2019 5:34 EDT [facility] Blood VENOUS BLOOD / Unknown Venipuncture / Unknown 10/15/2019 4:27 EDT 10/15/2019 4:51 EDT Narrative [facility] - 10/15/2019 5:34 EDT The results of this assay can be falsely lowered due to the consumption of Biotin. us Bria Payton MD CHEMISTRY & BLOOD GAS ORDERABL ES Final Result Performing Organization Address City/[facility]/ZIP Co de Phone Number [facility] [address] [place] [address] * CREATININE (10/15/2019 4:27 EDT) Creatinine 0.94 0.66 - 1.25 mg/dL 10/15/2019 5:19 EDT [facility] eGFR 78 >60 mL/min/1.7 3m2 10/15/2019 5:19 EDT [facility] Comment:eGFR calculated dung chandra CKD-EPI equation for non- Americans. Multiply eGFR by 1.16 for patients. Blood VENOUS BLOOD / Unknown Venipuncture / Unknown 10/15/2019 4:27 EDT 10/15/2019 4:51 EDT us Bria Payton MD CHEMISTRY & BLOOD GAS ORDERABL ES Final Result [facility] [address] [place] [address] * (ABNORMAL) ELECTROLYTES (10/15/2019 4:27 EDT) Sodium 135(L) 136 - 145 mEq/L 10/15/2019 5:19 EDT [facility] Potassium 4.2 3.5 - 5.0 mEq/L 10/15/2019 5:19 EDT [facility] Chloride 105 96 - 110 mEq/L 10/15/2019 5:19 EDT [facility] CO2 Total 24 22 - 32 mEq/L 10/15/2019 5:19 T [facility] Blood VENOUS BLOOD / Unknown Venipuncture / Unknown 10/15/2019 4:27 EDT 10/15/2019 4:51 EDT us Bria Payton MD CHEMISTRY & BLOOD GAS ORDERABL ES Final Result [facility] [address] [place] [address] * (ABNORMAL) COMPLETE BLOOD COUNT (10/15/2019 4:27 EDT) WBC 7.53 4.00 - 10.40 K/cmm 10/15/2019 4:59 [facility] RBC 4.64 4.36 - 5.78 M/cmm 10/15/2019 4:59 [facility] Hemoglobin 14.4 13.8 - 17.3 gm/dL 10/15/2019 4:59 [facility] HCT 41.2 39.5 - 50.2 % 10/15/2019 4:59 [facility] MCV 89 81 - 95 fl 10/15/2019 4:59 [facility] MCH 31.0 27.6 - 33.0 pg 10/15/2019 4:59 [facility] MCHC 35.0 32.8 - 36.4 gm/dL 10/15/2019 4:59 [facility] RDW-CV 12.8 <14.2 % 10/15/2019 4:59 [facility] RDW-SD 41.7 <46.0 fl 10/15/2019 4:59 [facility] PLT 152 141 - 377 K/cmm 10/15/2019 4:59 [facility] MPV 8.7(L) 9.5 - 12.7 fl 10/15/2019 4:59 [facility] Blood VENOUS BLOOD / Unknown Venipuncture / Unknown 10/15/2019 4:27 EDT 10/15/2019 4:51 EDT Bria Payton MD HEMATOLOGY & PF4 ORDERABLES Fi nal Result Performing Organization Address [facility] Co de Phone Number [facility] [address] [place] [address] * CT OUTSIDE IMAGES CHEST (10/14/2019 22:22 EDT) Marsha RODRIGUEZ - 10/14/2019 22:22 EDT This is a non-reportable exam. Physician Rn Integrity Avila CALIX IMG OTHER IMAGING ORDE RABLES Final Result Performing Organization Address [facility] de Phone Number JENNIFER * (ABNORMAL) TROPONIN I (10/14/2019 20:59 EDT) Troponin I (ng/mL) 23.700(H) <0.034 ng/mL 10/14/2019 21:44 EDT [facility] Blood VENOUS BLOOD / Unknown Venipuncture / Unknown 10/14/2019 20:59 EDT 10/14/2019 21:14 EDT Narrative [facility] - 10/14/2019 21:44 EDT The results of this assay can be falsely lowered due to the consumption of Biotin. us Bria Payton MD CHEMISTRY & BLOOD GAS ORDERABL ES Final Result Performing Organization Address [facility] de Phone Number [facility] [address] [place] [address] * (ABNORMAL) TROPONIN I (10/14/2019 12:39 EDT) Troponin I (ng/mL) 23.400(H) <0.034 ng/mL 10/14/2019 13:47 EDT [facility] Blood VENOUS BLOOD / Unknown Venipuncture / Unknown 10/14/2019 12:39 EDT 10/14/2019 13:11 EDT Narrative [facility] - 10/14/2019 13:47 EDT The results of this assay can be falsely lowered due to the consumption of Biotin. us Bria Payton MD CHEMISTRY & BLOOD GAS ORDERABL ES Final Result [facility] [address] [place] [phone] * LEFT HEART CATH, PERCUTANEOUS CORONARY INTERVENTION (10/14/2019 12:13 EDT) Anatomical Region Laterality Modality Supervisor Plasma 10/14/2019 10:4 9 EDT Narrative 10/14/2019 12:35 EDT Cardiology [address] [place] [address] Catheterization Laboratory Study Patient: William Cadena ? Study Date: ? 10/14/2019 ? Accession #: ?[id number] : ? 1940 Referring: Diagnostic Attending: ??Christiano Montgomery Interventional Attending: ?? Christiano Montgomery Diagnostic Fellow: Marilee Muñoz MD Interventional Fellow: Marilee Muñoz MD ATTESTATION: I, Dr. Marilee Muoñz was the initial author of this report. [...] 2. Patient presents with acute occlusion and OH as defined by Positive ?? biomarkers and [...] 0%, an excellent angiographic appearance, and ?? ALEAX grade 3 flow (brisk flow). 3. Right [...] Right radial artery access. A 6 Fr/10/.021 [place] [facility] SLENDER ?? sheath was advanced into [...] 2019-10-14 12:35 Procedure Note Christiano Montgomery MD 10/14/[address] [place] [address] Catheterization Laboratory Study Patient: William Cadena Study [...] 2. Patient presents with acute occlusion and OH as defined by Positive biomarkers and non-ST [...] Right radial artery access. A 6 Fr/10/.021 [place] [facility] SLENDER sheath was advanced into the [...] Result * (ABNORMAL) POCT ACTIVATED CLOTTING TIME, KAOLIN ISTAT (10/14/2019 11:53 EDT) [facility] Activated Clotting Time 241(H) 74 - 137 sec 10/14/2019 12:09 EDT [facility] riveter ID [id number] 10/14/2019 12:09 EDT [facility] HN LAB POC COMMENT (ACT) Test performed by Cardiology. Therapeutic interventaional range is dependent upon patient population and procedure type 10/14/2019 12:09 EDT [facility] Blood ARTERIAL BLOOD / Unknown 10/14/2019 11:53 EDT 10/14/2019 12:08 EDT us Kentrell Byrne MD POINT OF CARE TEST ORDERA BLES Final Result [facility] [address] [place] [address] * TRANSTHORACIC ECHO (TTE) COMPLETE W/DOPPLER W/CF NO CONTRAST (10/14/2019 11:00 EDT) [facility] LA Atrial Length A2C 5.5 cm POINT OF CARE [facility] LA Atrial Area A4C 22.1 cm2 P OINT OF CARE [facility] LA ID/bsa, A-P 2.1 cm/m2 POINT OF CARE [facility] Mitral valve area, PHT, DP 3.4 cm2 POINT OF CARE [facility] FS 33 28 - 44 % POINT [facility] C [facility] ID, A-P, ES 4.4 cm POINT OF CARE [facility] LV PW thickness, ED, PLAX 1.2 0.6 [...] color Doppler.The study was interpreted by [facility]. Pertinent images and digital data are archived for permanent storage and are available for subsequent review. Scanning was performed from the apical, parasternal, subcostal and suprasternal acoustic windows. Overall the study quality was adequate. Images were obtained using cardiac ultrasound machine EPIQ #15. us Bria Payton MD CARDIAC ECHO ORDERABLES Final Result * (ABNORMAL) TROPONIN I (10/14/2019 5:20 EDT) Pathologist [facility] Troponin I (ng/mL) 5.520(H) <0.034 ng/mL 10/14/2019 6:04 EDT [facility] Blood VENOUS BLOOD / Unknown Venipuncture / Unknown 10/14/2019 5:20 EDT 10/14/2019 5:25 EDT Narrative [facility] - 10/14/2019 6:04 EDT The results of this assay can be falsely lowered due to the consumption of Biotin. us Bria Payton MD CHEMISTRY & BLOOD GAS ORDERABL ES Final Result Performing Organization Address [facility] Co de Phone Number [facility] [address] [place] [address] * CREATININE (10/14/2019 5:20 EDT) [facility] Creatinine 0.98 0.66 - 1.25 mg/dL 10/14/2019 5:51 EDT [facility] eGFR 74 >60 mL/min/1.7 3m2 10/14/2019 5:51 EDT [facility] Comment:eGFR calculated dung chandra CKD-EPI equation for non- Americans. Multiply eGFR by 1.16 for patients. Blood VENOUS BLOOD / Unknown Venipuncture / Unknown 10/14/2019 5:20 EDT 10/14/2019 5:25 EDT us Bria Payton MD CHEMISTRY & BLOOD GAS ORDERABL ES Final Result Performing Organization Address [facility]/ZIP Co de Phone Number [facility] [address] [place] [address] * ELECTROLYTES (10/14/2019 5:20 EDT) Sodium 137 136 - 145 mEq/L 10/14/2019 5:51 EDT [facility] Potassium 3.8 3.5 - 5.0 mEq/L 10/14/2019 5:51 EDT [facility] Chloride 108 96 - 110 mEq/L 10/14/2019 5:51 EDT [facility] CO2 Total 23 22 - 32 mEq/L 10/14/2019 5:51 EDT [facility] Blood VENOUS BLOOD / Unknown Venipuncture / Unknown 10/14/2019 5:20 EDT 10/14/2019 5:25 EDT us Bria Payton MD CHEMISTRY & BLOOD GAS ORDERABL ES Final Result [facility] [address] [place] [address] * (ABNORMAL) COMPLETE BLOOD COUNT (10/14/2019 5:20 EDT) WBC 7.39 4.00 - 10.40 K/cmm 10/14/2019 5:33 [facility] RBC 4.46 4.36 - 5.78 M/cmm 10/14/2019 5:33 [facility] Hemoglobin 13.5(L) 13.8 - 17.3 gm/dL 10/14/2019 5:33 [facility] HCT 39.7 39.5 - 50.2 % 10/14/2019 5:33 [facility] MCV 89 81 - 95 fl 10/14/2019 5:33 [facility] MCH 30.3 27.6 - 33.0 pg 10/14/2019 5:33 [facility] MCHC 34.0 32.8 - 36.4 gm/dL 10/14/2019 5:33 [facility] RDW-CV 12.7 <14.2 % 10/14/2019 5:33 [facility] RDW-SD 41.6 <46.0 fl 10/14/2019 5:33 EDT [facility] PLT 152 141 - 377 K/cmm 10/14/2019 5:33 EDT [facility] MPV 8.9(L) 9.5 - 12.7 fl 10/14/2019 5:33 EDT [facility] Blood VENOUS BLOOD / Unknown Venipuncture / Unknown 10/14/2019 5:20 EDT 10/14/2019 5:26 EDT us Bria Payton MD HEMATOLOGY & PF4 ORDERABLES Fi nal Result Performing Organization Address [facility]/ZIP Co de Phone Number [facility] [address] [place] [address] * HEPARIN LEVEL - UNFRACTIONATED HEPARIN (10/14/2019 5:20 EDT) Heparin Level-UFH 0.71 Therapeutic Range: 0.30 - 0.70 IU/mL 10/14/2019 5:42 EDT [facility] Comment:Unfractionated hepar in therapeutic [...] HEMATOLOGY & PF4 ORDERABLES Fi nal Result [facility] [address] [place] [address] * HOLD BLUE TOP (10/13/2019 23:40 EDT) Hold Hold 10/14/2019 1:00 EDT [facility] Blood VENOUS BLOOD / Unknown Venipuncture / Unknown 10/13/2019 23:40 EDT 10/13/2019 23:45 EDT Donnie Romeo MD MSc LAB INFO SERVICE AND SUPP ORT & PHONE RESULT Final Result Performing Organization Address [facility] Co de Phone Number [facility] [address] [place] [address] * HEPARIN LEVEL - UNFRACTIONATED HEPARIN (10/13/2019 23:07 EDT) Pathologist [facility] Heparin Level-UFH 0.63 Therapeutic Range: 0.30 - 0.70 IU/mL 10/13/2019 23:39 EDT [facility] Comment:Unfractionated hepar in therapeutic [...] ORDERABLES Fi nal Result Performing Organization Address [facility] Co de Phone Number [facility] [address] [place] [address] * COVID-19 TEST [facility] PCR (10/13/2019 22:23 EDT) Swab ENTIRE NASOPHARYNX / Unknown Swab / Unknown 10/13/2019 22:23 EDT 10/13/2019 22:25 EDT Donnie Romeo MD MSc MICROBIOLOGY - GENERAL OR DERABLES Final Result Performing Organization Address [facility]/ZIP Co de Phone Number [facility] [address] [place] [address] * COVID-19 TESTING (10/13/2019 22:23 EDT) [facility] COVID-19 rt-PCR Result Negative Negative 10/14/2019 2:24 EDT [facility] Comment: This test has [...] history, and epidemiological information. Performed on the [employer] Fusion instrument Performing Lab [place] [facility] Lab 10/14/2019 2:24 EDT [facility] Swab ENTIRE NASOPHARYNX / Unknown Swab / Unknown 10/13/2019 22:23 EDT 10/13/2019 22:25 EDT us Donnie Romeo MD MSc MICROBIOLOGY - GENERAL OR DERABLES Final Result Performing Organization Address [facility]/ZIP Co de Phone Number [facility] [address] [place] [address] * (ABNORMAL) NT PRO BNP (10/13/2019 20:56 EDT) NT-pro BNP 1,470(H) <450 pg/mL 10/13/2019 22:44 EDT [facility] Comment: The results of this assay can be falsely lowered due to consumption of Biotin. Blood VENOUS BLOOD / Unknown Venipuncture / Unknown 10/13/2019 20:56 EDT 10/13/2019 21:35 EDT us Bria Payton MD CHEMISTRY & BLOOD GAS ORDERABL ES Final Result Performing Organization Address [facility]/ZIP Co de Phone Number [facility] [address] [place] [phone] * LIPID PROFILE (INCLUDES CHOLESTEROL, TRIGLYCERIDES, HDL, LDL) (10/13/2019 20:56 EDT) Cholesterol 182 See Note mg/dL 10/13/2019 22:30 [facility] Comment: Acceptable: ?<200 mg/dL Borderline High: 200-239 mg/dL High: ?> or = 240 mg/dL HDL 36 See Note mg/dL 10/13/2019 22:30 [facility] LABORATORY SERVICES Comment: Low: ? <40 mg/dL Normal: ??40-60 mg/dL High: ?>60 mg/dL LDL, Calculated 122 See Note mg/dL 10/13/2019 22:30 [facility] Comment: Optimal: ? <100 mg/dL Near Optimal: ?100-129 mg/dL Borderline High: 130-159 mg/dL High: ?160-189 mg/dL Very High: ? > or = 190 mg/dL Triglyceride 119 See Note mg/dL 10/13/2019 22:30 [facility] Comment: Normal: ? <150 mg/dL Borderline High: ??150 - 199 mg/dL High: ? 200 - 499 mg/dL Very High: ?> or = 500 mg/dL Chol/HDL Ratio 5.1 See Note 10/13/2019 22:30 [facility] Comment: No reference range has been established for CHOL/HDL ratio. Non HDL Cholesterol 146 See Note mg/dL 10/13/2019 22:30 [facility] Comment: Desirable: ?<130 mg/dL Borderline High: ??130-159 mg/dL High: ? 160-189 mg/dL Very High: ?> or = 190 mg/dL Blood VENOUS BLOOD / Unknown Venipuncture / Unknown 10/13/2019 20:56 EDT 10/13/2019 21:35 EDT Bria Payton MD CHEMISTRY & BLOOD GAS ORDERABL ES Final Result Performing Organization Address [facility] de Phone Number [facility] [address] [place] [address] * HEMOGLOBIN A1C (10/13/2019 20:56 EDT) Hemoglobin A1c 5.2 <5.7 % 10/16/2019 11:19 EDT [facility] Comment: Glycemic Status References: [...] Avg Glucose 103 mg/dL 0 11:19 EDT [facility] Comment: The eAG represents the A1c result expressed as average glucose in mg/dL. Blood VENOUS BLOOD / Unknown Venipuncture / Unknown 10/13/2019 20:56 EDT 10/13/2019 21:34 EDT us Bria Payton MD CHEMISTRY & BLOOD GAS ORDERABL ES Final Result Performing Organization Address [facility] Co de Phone Number [facility] [address] [place] [address] * (ABNORMAL) PTT (10/13/2019 20:49 EDT) PTT 111(HH) 26 - 37 secs 10/13/2019 23:14 EDT [facility] Blood VENOUS BLOOD / Unknown Venipuncture / Unknown 10/13/2019 20:49 EDT 10/13/2019 21:34 EDT Donnie Romeo MD MSc HEMATOLOGY & PF4 ORDERABL ES Final Result Performing Organization Address City/[facility]/ZIP Co de Phone Number [facility] [address] [place] [address] * PROTIME (10/13/2019 20:49 EDT) I.N.R. 1.0 0.9 - 1.1 Ratio 10/13/2019 23:14 EDT [facility] Pro Time 12.1 10.3 - 13.4 secs 10/13/2019 23:14 EDT [facility] Blood VENOUS BLOOD / Unknown Venipuncture / Unknown 10/13/2019 20:49 EDT 10/13/2019 21:34 EDT Narrative [facility] - 10/13/2019 23:14 EDT Moderate Intensity Coumadin INR = 2.0-3.0 Adjustments in anticoagulant therapy dose should be based on the INR and NOT on the Protime. Donnie Romeo MD MSc HEMATOLOGY & PF4 ORDERABL ES Final Result Performing Organization Address [facility] Co de Phone Number [facility] [address] [place] [address] * SCREENING GLUCOSE (10/13/2019 20:49 EDT) Glucose, Screening 96 70 - 100 mg/dL 10/13/2019 21:56 EDT [facility] Blood VENOUS BLOOD / Unknown Venipuncture / Unknown 10/13/2019 20:49 EDT 10/13/2019 21:35 EDT Donnie Romeo MD MSc CHEMISTRY & BLOOD GAS ORD ERABLES Final Result Performing Organization Address City/[facility]/ZIP Co de Phone Number [facility] [address] [place] [id number] * MAGNESIUM (10/13/2019 20:49 EDT) Magnesium 2.0 1.7 - 2.8 mg/dL 10/13/2019 21:56 EDT [facility] Blood VENOUS BLOOD / Unknown Venipuncture / Unknown 10/13/2019 20:49 EDT 10/13/2019 21:35 EDT Donnie Romeo MD MSc CHEMISTRY & BLOOD GAS ORD ERABLES Final Result [facility] [address] [phone] * (ABNORMAL) TROPONIN I (10/13/2019 20:49 EDT) Pathologist [facility] Troponin I (ng/mL) 3.930(H) <0.034 ng/mL 10/13/2019 22:20 EDT [facility] Blood VENOUS BLOOD / Unknown Venipuncture / Unknown 10/13/2019 20:49 EDT 10/13/2019 21:35 EDT Narrative [facility] - 10/13/2019 22:20 EDT The results of this assay can be falsely lowered due to the consumption of Biotin. Donnie Romeo MD MSc CHEMISTRY & BLOOD GAS ORD ERABLES Final Result Performing Organization Address City/[facility]/ZIP Co de Phone Number [facility] [address] [place] [address] * ELECTROLYTES (10/13/2019 20:49 EDT) Sodium 137 136 - 145 mEq/L 10/13/2019 21:56 EDT [facility] Potassium 4.0 3.5 - 5.0 mEq/L 10/13/2019 21:56 EDT [facility] Chloride 107 96 - 110 mEq/L 10/13/2019 21:56 EDT [facility] CO2 Total 22 22 - 32 mEq/L 10/13/2019 21:56 EDT [facility] Blood VENOUS BLOOD / Unknown Venipuncture / Unknown 10/13/2019 20:49 EDT 10/13/2019 21:35 EDT Donnie Romeo MD MSc CHEMISTRY & BLOOD GAS ORD ERABLES Final Result [facility] [address] [place] [address] * CREATININE (10/13/2019 20:49 EDT) Creatinine 1.03 0.66 - 1.25 mg/dL 10/13/2019 21:56 EDT [facility] eGFR 70 >60 mL/min/1.7 3m2 10/13/2019 21:56 EDT [facility] Comment:eGFR calculated dung chandra CKD-EPI equation for non- Americans. Multiply eGFR by 1.16 for patients. Blood VENOUS BLOOD / Unknown Venipuncture / Unknown 10/13/2019 20:49 EDT 10/13/2019 21:35 EDT Donnie Romeo MD MSc CHEMISTRY & BLOOD GAS ORD ERABLES Final Result [facility] [address] [place] [address] * BUN (10/13/2019 20:49 EDT) BUN 25 10 - 26 mg/dL 10/13/2019 21:56 EDT [facility] Blood VENOUS BLOOD / Unknown Venipuncture / Unknown 10/13/2019 20:49 EDT 10/13/2019 21:35 EDT Donnie Romeo MD MSc CHEMISTRY & BLOOD GAS ORD ERABLES Final Result [facility] [address] [place] [address] * (ABNORMAL) COMPLETE BLOOD COUNT AND DIFFERENTIAL (10/13/2019 20:49 EDT) WBC 7.22 4.00 - 10.40 K/cmm 10/13/2019 21:43 [facility] RBC 4.58 4.36 - 5.78 M/cmm 10/13/2019 21:43 [facility] Hemoglobin 14.3 13.8 - 17.3 gm/dL 10/13/2019 21:43 [facility] HCT 40.7 39.5 - 50.2 % 10/13/2019 21:43 [facility] MCV 89 81 - 95 fl 10/13/2019 21:43 [facility] MCH 31.2 27.6 - 33.0 pg 10/13/2019 21:43 [facility] MCHC 35.1 32.8 - 36.4 gm/dL 10/13/2019 21:43 [facility] RDW-CV 12.7 <14.2 % 10/13/2019 21:43 [facility] RDW-SD 41.1 <46.0 fl 10/13/2019 21:43 [facility] PLT 168 141 - 377 K/[facility] 10/13/2019 21:43 [facility] MPV 8.9(L) 9.5 - 12.7 fl 10/13/2019 21:43 [facility] % Neutrophils 41.4 % 10/13/2019 21:43 [facility] % Lymphocytes 47.2 % 10/13/2019 21:43 [facility] % Monocytes 8.2 % 10/13/2019 21:43 [facility] % Eosinophils 2.4 % 10/13/2019 21:43 [facility] % Basophils 0.7 % 10/13/2019 21:43 [facility] % Immature Grans 0.1 % 10/13/19 21:43 [facility] Absolute Neutrophils 2.99 2.20 - 8.85 K/cmm 10/13/2019 21:43 [facility] Absolute Lymphocytes 3.41(H) 1.09 - 3.30 K/cmm 10/13/2019 21:43 [facility] Absolute Monocytes 0.59 0.10 - 0.80 K/cmm 10/13/2019 21:43 EDT [facility] Absolute Eosinophils 0.17 0.03 - 0.61 K/cmm 10/13/2019 21:43 EDT [facility] ABS Basophils 0.05 0.01 - 0.11 K/cmm 10/13/2019 21:43 EDT [facility] Absolute Immature Grans 0.01 0.00 - 0.06 K/cm 10/13/2019 21:43 EDT [facility] Type of Differential: Auto 10/13/2019 21:43 EDT [facility] Blood VENOUS BLOOD / Unknown Venipuncture / Unknown 10/13/2019 20:49 EDT 10/13/2019 21:34 EDT us Donnie Romeo MD MSc PACKAGES & DNA PROBE JYOTI CARDONA Final Result Performing Organization Address City/State/[facility] Co de Phone Number [facility] [address] [place] [address] * EKG 12-LEAD (10/13/2019 20:38 EDT) 10/13/2019 20:3 8 EDT Narrative [facility] EKG - 10/23/2019 7:39 EDT ?[facility] ? Test Date: ?2019-10-13 Pat Name: ? WILLIAM CADENA ?Department: ?? ED ? Room: ? AC07 Gender: ? Male ? 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 [id number] : ?1940 ? Requested By: LA Cuellar Order Number: [id number] ? Reading : ?? DEBORA ROBLERO MD ? Measurements Intervals ?[place] ? Rate: ? 62 ? P: ?12 WA: ? 198 ?QRS: ?23 QRSD: ? 94 [...] Note Debora Roblero MD - 10/23/2019 [facility] Test Date: 2019-10-13 Pat Name: WILLIAM CADENA Department: ED Room: [facility] Gender: Male Packing Machine Tender: [id number] : 1940 Requested By: LA Cuellar Order Number: [id number] Reading MD: DEBORA ROBLERO MD Measurements Intervals [place] Rate: 62 P: 12 WA: 198 QRS: 23 QRSD: 94 T: 48 QT: 441 QTc: 449 Interpretive Statements SINUS RHYTHM Automated Interpretation. Provider Interpretation to follow. No previous ECG available for comparison I reviewed the tracing and have either agreed or edited the findings inthis report. Electronically Signed On 10-23-2019 7:39:03 EDT by DEBORA RANDLE. Donnie Romeo MD MSc CARDIAC ECG ORDERABLES Fi nal Result [facility] EKG documented in this encounter Visit Diagnoses Diagnosis NSTEMI (non-ST elevated myocardial infarction) (HCC-CMS)- Primary Acute myocardial infarction, subendocardial infarction, episode of care unspecified NSTEMI (non-ST elevated myocardial infarction) (HCC-CMS) Acute myocardial infarction, subendocardial infarction, episode of care unspecified Coronary artery disease without angina pectoris, unspecified vessel or lesion type, unspecified whether [place] or transplanted heart documented in this encounter Administered Medications Inactive Administered [...] mg Given 10/14/2019 9:18 EDT 0.2 mg heparin in 1/2 NS 25,000 unit/250 mL infusion 13 Units/kg/hr ? 77.3 kg Adjusted weight (10.049 mL/hr, rounded to 10 mL/hr), intravenous, CONTINUOUS, Starting on Wed10/13/19 at 2315, Until 10/14/19 at 1210, Routine New Bag 10/14/2019 10:38 EDT 13 Units/kg/hr 10 mL/ hr Rate Change 10/14/2019 6:03 EDT 13 Units/kg/hr 10 mL/hr Rate Documented 10/14/2019 4:51 EDT 15 Units/kg/hr 11.6 mL /hr heparin injection 5,000 Units 5,000 Units, subcutaneous, EVERY 8 HOURS, First dose on 10/14/19 at 1600, Until Discontinued, Routine Given 10/14/2019 17:20 EDT 5,000 Units metoprolol (LOPRESSOR) tablet 12.5 mg 12.5 mg, oral, 2 TIMES DAILY, First dose on 10/14/19 at 0945, Until Discontinued, Routine Given 10/15/2019 8:15 EDT 12.5 mg Given 10/14/2019 20:35 EDT 12.5 mg Given 10/14/2019 10:57 EDT 12.5 mg ramelteon (ROZEREM) tablet 8 mg 8 mg, oral, AT BEDTIME, First dose (after last modification) on 10/14/19 at 2100, Until Discontinued, Routine Given 10/14/2019 20:35 EDT 8 mg rosuvastatin (CRESTOR) tablet 20 mg 20 mg, oral, DAILY, First dose (after last modification) on 10/14/19 at 0900, Until Discontinued, Routine Given 10/15/2019 8:15 EDT 20 mg Given 10/14/2019 9:18 EDT 20 mg documented in this encounter Historical Medications * [...] 0917 (Given - Provider: Gunjan Silvestre RN)1112 ([facility] Hold - Provider: User Epic - Reason: Patient off unit)1218 ([facility] Unhold - Provider: User Epic) 0815 (Given - Provider: Alley Mendez RN) clopidogreL (PLAVIX) tablet 75 mg 75 mg, oral, DAILY, First dose on 10/14/19 at 0900, Until Discontinued, Routine 09 (Given - Provider: Gunjan Silvestre RN)1112 ([facility] Hold - Provider: User Epic - Reason: Patient off unit)1218 ([facility] Unhold - Provider: User Epic) 0815 (Given - Provider: Alley Mendez RN) desmopressin (DDAVP) tablet 0.2 mg 0.2 mg, oral, DAILY, First dose on 10/14/19 at 0900, Until Discontinued, Routine 0918 (Given - Provider: Gunjan Silvestre RN)1112 ([facility] Hold - Provider: User Epic - Reason: Patient off unit)1218 ([facility] Unhold - Provider: User Epic) 0815 (Given - Provider: Alley Mendez RN) heparin injection 5,000 Units (CANCELED) 5,000 Units, subcutaneous, EVERY 8 HOURS, First dose on 10/14/19 at 1600, Until Discontinued, Routine 1720 (Given - Provider: Gunjan Silvestre RN) metoprolol (LOPRESSOR) tablet 12.5 mg 12.5 mg, oral, 2 TIMES DAILY, First dose on 10/14/19 at 0945, Until Discontinued, Routine 1057 (Given - Provider: Gunjan Silvestre RN)1112 ([facility] Hold - Provider: User Epic - Reason: Patient off unit)1218 ([facility] Unhold - Provider: User Epic)2034 (Given - Provider: Levar Killian RN) 0815 [...] Afshin Caballero RN - 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: 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) PRN Medication Order 10/13/2019 10/14/2019 10/15/2019 acetaminophen [...] Count Last Ordered Date First Ordered Date fentaNYL citrate (PF) 50 mcg/mL injection 1 10/14/2019 fentaNYL citrate (PF) injection 0 heparin 1,000 unit/mL injection 2 0 iopamidoL (ISOVUE-370) injection 1 10/14/19 20 lidocaine 20 mg/mL (2 %) injection 2019 midazolam (PF) (VERSED) 1 mg/mL injection 10/14/2019 midazolam (PF) (VERSED) injection 1 020 nitroglycerin 100 mcg/mL syringe 1 10/14/19 20 rosuvastatin (CRESTOR) tablet 10 mg 1 10/13 rosuvastatin (CRESTOR) tablet 20 mg 1 10/13 sodium chloride 0.9 % (NS) infusion 1 10/13 verapamiL (ISOPTIN) 2.5 mg/mL injection 1 0 10/14/2019 acetaminophen (TYLENOL) tablet 650 mg 1 heparin 1,000 unit/mL inject ion 2,700 Units 1 10/13/2019 heparin 1,000 unit/mL inject ion 5,400 Units 1 10/13/2019 heparin in 1/2 NS 25,000 uni t/250 mL infusion 1 10/13/2019 nitroglycerin 400 mcg/ml in D5W 250 ml infusion 1 10/13/2019 ramelteon (ROZEREM) tablet 8 mg 1 0 senna (SENOKOT) tablet 1 Tab 1 10/13/2019 [...] Date First Orde red Date CASE REQUEST TITLE INSURANCE EXAMINER 1 10/13/2019 documented in this encounter Care Teams Sql Engineer Relationship Specialty Start Date End Date Alexis Jung DO [address] [place] [address] EVELYN DENIS [address] PCP - General 10/13/19 07/13/21 documented as of this encounter
--- OUTSIDE RECORDS SUMMARY | 2024-06-08 21:20 | XMS_ITS | Encounter Summary ---
Author Organization [facility] [place] [address] Care Team Providers Care Network Strategist Name Role Phone Ceasar Pratt MD Primary Care Provider Unavail le Encounter Details Date Type Department Care Team (Late st Contact Info) Description 09/14/2012 10:30 AM EDT - 09/14/2012 11:30 AM EDT Surgery [place] [address] Matt Rasheed MD [facility] [place] [address] COLONOSCOPY, POLYPECTOMY, REMOVAL LESION BY SNARE (WRVU [...] you need to be checked. 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 Be sure to make and go to all appointments, and call your doctor if you are having problems. Discharge instructions reviewed with patient who expresses understanding * Attachments The following attachments cannot be sent through Care Everywhere. * COLON POLYPS: AFTER YOUR VISIT (GABONESE) documented in this encounter Medications at Time of Discharge Medication Sig Dispensed Refills Start Date End Date multivitamin (THERAGRAN) tablet Take 1 tablet by mouth every other day. [place]-3 Fatty Acids (FISH OIL) 300 mg Cap [...] 1:45 PM EDT) Surgical Pathology Report ? [facility] ? Provider: ?? MATT RASHEED ?Pt. Name: ?? NASEEM FLYNN ? Acc #: ?[id number] ?Pt. ? Col Date: ?? 09/14/2012 ?/Sex: [...] with polyps ? Clinical Diagnosis: ? Same [facility] 09/14/2012 1:45 PM EDT Matt Rasheed MD PATHOLOGY/CYTOLOGY [facility] * Specimen to Pathology (surgical or derm) (09/14/2012 11:25 AM EDT) AP Specimen 09/14/2012 11:2 5 AM EDT 09/14/2012 11:25 AM EDT Narrative [facility] - 09/14/2012 11:25 AM EDT Specimen requisition ordered. ??Separate Pathology report to follow Matt Rasheed MD PATHOLOGY/CYTOLOGY [facility] * COLONOSCOPY (09/14/2012 10:28 AM EDT) COLONOSCOPY [facility] Endoscopy Patient Name: Naseem Flynn ? Procedure Date: 09/14/2012 10:28 AM ? N: [id number] ? Date of : 1940 ? Age: 72 ? Order #: [id number] ? Procedure: ? Colonoscopy Indications: ? Screening for colorectal malignant ? neoplasm Providers: ? Matt Rasheed MD, Shalonda Bonner, ? RN, Samantha Pollard, Chemical Project Engineer, ? Jaswinder Wren MD Referring : ?Ceasar Pratt MD Medicines: ? Midazolam 4 [...] Action Action Date Dose Rate Site fentaNYL 50mcg/mL injection ONCE PRN, Starting on Wed09/14/12 at 1044, Until Wed09/14/12 at 1755, Pain, Intra-Operative (Intra-Procedure), Routine Given 09/14/2012 10:55 AM EDT 25 mcg Right Arm Given 09/14/2012 10:50 AM EDT 50 mcg R ight Arm Given 09/14/2012 10:47 AM EDT 50 mcg R ight Arm midazolam (VERSED) injection ONCE PRN, Starting on Wed09/14/12 at 1044, Until Wed09/14/12 at 1755, Sleep, Intra-Operative (Intra-Procedure), Routine Given 09/14/2012 10:55 AM EDT 1 mg Righ t Arm Given 09/14/2012 10:50 AM EDT 1 mg R ight Arm Given 09/14/2012 10:47 AM EDT 1 mg R ight Arm documented in this encounter Active and Recently [...] RN) documented in this encounter Care Teams Network Strategist Relationship Specialty Start Date End Date Ceasar Pratt MD PCP - General 04/08/10 05/25/24 documented as of this encounter
--- OUTSIDE RECORDS SUMMARY | 2024-06-08 21:20 | XMS_ITS | Clinical Summary ---
Author Organization [facility] Address [facility] [place] [address] Care Team Providers Care Glass Bulb Silverer Name Role Phone None Primary Care Provider Unavailabl e Allergies No known active allergies Medications Medication Sig Dispensed Refills Start Date End Date Status sildenafil (VIAGRA) 100 mg tablet 04/16/2010 Active multivitamin (THERAGRAN) tablet Take 1 tablet by mouth every other day. Active [place]-3 Fatty Acids (FISH OIL) 300 mg Cap Take by mouth daily. Unsure of dosage Active desmopressin (DDAVP) 0.1 mg tablet Take 1 tablet by mouth 2 times daily. 180 tablet 3 09/14/2012 Active aspirin EC 81 mg Tablet, Delayed Release (E.C.) Take 81 mg by mouth Daily. 10/16/2019 Active bisoprolol (ZEBETA) 5 mg Tablet Take 5 mg by mouth Daily. 05/13/2020 Active clopidogreL (Plavix) 75 mg Tablet Take 75 mg by mouth Daily. 05/13/2020 Active LORazepam (Ativan) 1 mg Tablet Take 1 mg by mouth Every 4 hours as needed. Active rosuvastatin (Crestor) 20 mg Tablet Take 20 mg by mouth Daily. 05/13/2020 Active Active Problems No known active problems Immunizations Name Administration Dates Next Due Influenza Vaccine, Whole 04/03/2005 Social History Tobacco Use Types Packs/Day Years Used Date Smoking Tobacco: Former Cigarettes Q uit: 08/16/1975 Smokeless Tobacco: Never Alcohol Use Standard Drinks/Week Comments Yes 7 (1 standard drink = 0.6 oz pur e alcohol) Sex and Gender Information Value Date Recorded Sex Assigned at Not on file Gender Identity Not on file Sexual Orientation Not on file Last Filed [...] Mass Index 31.32 09/17/2020 1:56 PM EDT Plan of Treatment Health Maintenance Due Date Last Done Comments Tetanus/Diphtheria/Pertussis Vaccines (1 - Tdap) 1961 Pneumoccocal Vaccine: 50+ (1 of 1 - PCV) 1992 Zoster vaccine (1 of 2) 1992 Advance Directive 1997 RSV Vaccine (1 - 1-dose 75+ series) 2017 Covid-19 Vaccine ( - 2023-2 5 season) 2024 Influenza (Flu) vaccine (1 o f 1 - Influenza standard series) 01/16/2024 04/03/2005 Colonoscopy Discontinued 09/17/2020, 08/2020, 09/14/2012, Additional history exists Colorectal Cancer Screening Discontinued Sigmoidoscopy (10 year) with FIT yearly Discontinued 09/17/2020, 09/17/2020, 09/14/2012, Additional history exists CT Colonography Discontinued FIT DNA Discontinued FIT Discontinued Sigmoidoscopy Discontinued Procedures Procedure Name Priority Date/Time Associated Diagnosis Comments COLONOSCOPY Routine 09/17/2020 3:00 PM EDT from Last 3 Months or Most Recently Relevant to Health Maintenance Results * COLONOSCOPY (09/17/2020 3:00 PM EDT) COLONOSCOPY [facility] Endoscopy Procedure Date: 09/17/2020 3:00 PM ? Patient Name: Naseem Cadena ? Date of : 1940 ? Age: 80 ? Order #: [id number] ? Instrument Name: [id number] ? Procedure: ? Colonoscopy Indications: ? High risk colon cancer surveillance: ? Personal history of colonic polyps Providers: ? Tona Denton ? Rajesh Fry, ? Scale Model Maker Referring MD: ?Ceasar Pratt MD Medicines: ? [...] Pratt MD GENERAL SURGICAL ORD ERABLES PROVATION from Last 3 Months or Most Recently Relevant to Health Maintenance Care Teams Glass Bulb Silverer Relationship Specialty Start Date End Date None None PCP - General 05/26/24
== END 2024-06-08 21:18 | disposition home or self-care (01) ==
LOC: LBN 21:17
PROVIDERS: PCP Nurse Practitioner Family; Visit Provider Nurse Practitioner Family
DX: R82.998 Other abnormal findings in urine (principal); Z11.52 Encounter for screening for COVID-19; J18.9 Pneumonia, unspecified organism
CPT/HCPCS: 87077; 81003; 81015; 87086; 87186

== ENCOUNTER 2024-09-22 11:36 | Outpatient (CLI) | payer MEDICARE, SELFPAY ==
[2024-09-22 12:42] LABS: ALT 26 U/L (16-63); AST 22 U/L (15-37); Alkaline Phosphatase 92 U/L (46-116); Anion Gap 6.5 mmol/L (3-11); BUN 21 mg/dL (7-18); Bilirubin, Total 0.4 mg/dL (0.2-1.0); CO2 29.5 mmol/L (21.0-32.0); CREATININE 1.3 mg/dL (0.70-1.30); Calcium 9.1 mg/dL (8.5-10.1); Calculated LDL 59 mg/dL (<100); Chloride 105 mmol/L (98-107); Cholesterol 151 mg/dL (<200); Estimated GFR 54.85 (mL/min/1.73m2); Glucose 106 mg/dL (74-106); HDL Cholesterol 44 mg/dL (>or=40); Potassium 4.2 mmol/L (3.5-5.1); Sodium 141 mmol/L (136-145); Triglyceride 243 mg/dL (<150)
== END 2024-09-22 11:37 | disposition home or self-care (01) ==
PROVIDERS: PCP Nurse Practitioner Family; Visit Provider Nurse Practitioner Family
DX: E78.00 Pure hypercholesterolemia, unspecified (principal)
CPT/HCPCS: 36415; 80053; 80061

== ENCOUNTER → 2025-05-09 13:02 | Outpatient (CLI) | payer MEDICARE, SELFPAY ==
--- NOTE | 2025-05-09 | DI.RAD_ITS ---
Exam(s) XR CHEST 2V PA LATERAL EXAM: XR CHEST 2V PA LATERAL CLINICAL HISTORY: R05.9 Cough unspecified. TECHNIQUE: 2D digital imaging was performed. COMPARISON: CR XR CHEST 2V PA LATERAL from 09/17/2023 FINDINGS: 2 views: Heart size is upper normal. The mediastinum is not widened. Lungs are clear. No infiltrates nor pleural effusions. No pulmonary edema. IMPRESSION: No acute pulmonary findings. DATA REPOSITORY: RADIATION DOSE DELIVERED:
== END ==
LOC: DI 13:02
PROVIDERS: PCP Nurse Practitioner Family; Visit Provider Physician Assistant Medical
DX: R05.9 Cough, unspecified (principal)
CPT/HCPCS: 71046